=== PATIENT | male | born 1945 | race Caucasian/White ===

== ENCOUNTER → 2020-06-08 14:06 | Outpatient (BNVA) | payer MEDICARE, SELFPAY | PROVIDERS: PCP Internal Medicine Geriatric Medicine; Visit Provider Internal Medicine Cardiovascular Disease | DX: I49.1 Atrial premature depolarization (principal); I44.4 Left anterior fascicular block | CPT/HCPCS: 93005; 99212 ==

== ENCOUNTER → 2020-12-07 14:50 | Outpatient (BNVA) | payer OTHER, SELFPAY | PROVIDERS: PCP Internal Medicine Geriatric Medicine; Referring Provider Internal Medicine Geriatric Medicine; Visit Provider Internal Medicine Cardiovascular Disease | DX: I45.10 Unspecified right bundle-branch block (principal) | CPT/HCPCS: 93005 ==

== ENCOUNTER 2020-12-22 12:58 | Outpatient (REF) | payer MEDICARE, SELFPAY ==
--- NOTE | ~2020-12-22 | XR_ITS ---
EXAMINATION: XR KNEE, RIGHT CLINICAL INFORMATION: Pain COMPARISON: None TECHNIQUE: Four views of the right knee. FINDINGS: Bone alignment is normal. No fracture or dislocation is seen. The femoral tibial joints are normal. There are small osteophytes at the patellofemoral joint. There is a small osteophyte at the quadriceps tendon insertion to the patella. There is no joint effusion. XR/XR knee RT 4V IMPRESSION: Small patellar osteophyte otherwise unremarkable exam.
--- NOTE | ~2020-12-22 | XR_ITS ---
EXAMINATION: XR CHEST CLINICAL INFORMATION: Signs and symptoms involving the circulatory and respiratory system COMPARISON: Previous chest x-ray February [address] November 2019 TECHNIQUE: 2 views of the chest were obtained. FINDINGS: The cardiac and mediastinal contours are normal. There is a 5 mm nodule at the left lung base. This overlies the anterior sixth rib on the PA view. This is not seen on the lateral view. It is uncertain whether this represents a pulmonary nodule or could represent a nipple shadow. The lungs are otherwise clear. There is no pleural effusion or pneumothorax. There is curvature of the thoracic spine to the right and degenerative change. XR/XR chest 2V IMPRESSION: 5 mm left base pulmonary nodule. Follow-up chest x-ray with nipple markers recommended. Degenerative changes of the spine.
== END 2020-12-22 12:59 | disposition home or self-care (01) ==
LOC: HO.XRAY 12:58
PROVIDERS: Absent Provider Nurse Practitioner; PCP Nurse Practitioner; Visit Provider Family Medicine
DX: M25.561 Pain in right knee (principal); R09.89 Other specified symptoms and signs involving the circulatory and respiratory systems
CPT/HCPCS: 71046; 73564

== ENCOUNTER 2020-12-27 13:47 | Emergency (ER) | payer MEDICARE, SELFPAY ==
--- NOTE | 2020-12-27 | ECG_ITS ---
Test Reason : chest pain Blood Pressure : / mmHG Vent. Rate : 050 BPM Atrial Rate : 050 BPM P-R Int : 170 ms QRS Dur : 128 ms QT Int : 440 ms P-R-T Axes : 010 -54 008 degrees QTc Int : 401 ms Sinus bradycardia Left anterior fascicular block Non-specific intra-ventricular conduction block Minimal voltage criteria for LVH, may be normal variant ( [place] product ) Abnormal ECG No previous ECGs available Referred By: Generic ED Physician Electronically Signed By:JAXON VELÁSQUEZ MD
--- NOTE | ~2020-12-27 | CT_ITS ---
EXAMINATION: CT HEAD WITHOUT CONTRAST CLINICAL INFORMATION: Left arm paresthesia. COMPARISON: None TECHNIQUE: Contiguous axial imaging was performed from the skull base to vertex without intravenous administration of contrast. This CT examination was performed using dose optimization techniques as appropriate, variously including the following: *Automated exposure control *Adjustment of mA and/or kV according to patient size (this includes techniques or standardized protocols for targeted exams where dose is matched to indication/reason for exam; i.e. extremities or head) *Use of iterative reconstruction technique DLP: 702 mGy-cm FINDINGS: There is no evidence of acute intracranial hemorrhage or territorial infarction. No abnormal mass effect or midline shift is seen. Tap[place] to white matter differentiation is well preserved. No extra-axial fluid collections are identified. The ventricles are symmetrical in size but enlarged. There is diffuse periventricular hypodensity suggestive of chronic small vessel ischemic changes. Bone windows reveal no calvarial abnormality. There is no scalp abnormality either. Bilateral paranasal sinuses and mastoid air cells are well-aerated. CT/CT head/brain wo con IMPRESSION: No acute intracranial process seen. Age-related cerebral volume loss with chronic small vessel ischemic changes in both cerebral hemispheres.
[2020-12-27 13:50] VITALS: BP 138/54; PULSE 52; RESP 18; TEMP 36.6; O2SAT 97; BMI 25.7
--- NOTE | 2020-12-27 15:27 | ED_ITS ---
HPI - Chest Pain General Chief Complaint: Chest Pain Stated Complaint: chest pain/l arm pain Time Seen by Provider: 12/27/20 15:26 Source: patient Mode of arrival: ambulatory Limitations: no limitations History of Present Illness HPI narrative: 75 yo male pmhx significant for DM, left anterior fasicular block and HTN presents to the ED with complaints of left arm numbness and tingling since yesterday at approximately 10 am . He states that this sensation began yesterday, it has been intermittent in nature and it has been worsening over the past day. He states he also feels a little numbness to his left axilla and just inferior to it. He states this has never happened to him before. He has been eating and drinking well. Denies chest pain, shortness of breath, weakness, fevers, chills, nausea, vomiting, abdominal pain, no recent illness. Onset (ago): day(s) (2) Timing of current episode: episodic Prior episodes: No Relieving factors: nothing Exacerbating factors: nothing Related Data Home Medications Medication Instructions Recorded Confirmed bupropion HCl 150 mg 24 hr tablet, 150 mg PO QAM 06/08/20 06/08/20 extended release cholecalciferol (vitamin D3) 50 50 mcg PO DAILY 06/08/20 06/08/20 mcg (2,000 unit) capsule diltiazem HCl 120 mg 120 mg PO QAM 06/08/20 06/08/20 capsule,extended release 24 hr fluticasone propionate 50 spray INTRANASAL 06/08/20 06/08/20 mcg/actuation nasal spray,suspension lorazepam 0.5 mg tablet 0.5 mg PO BID 06/08/20 06/08/20 melatonin 5 mg tablet 5 mg PO BEDTIME 06/08/20 06/08/20 metformin 500 mg tablet 500 mg PO BID 06/08/20 06/08/20 omeprazole 20 mg capsule,delayed 20 mg PO BID 06/08/20 06/08/20 release umeclidinium 62.5 mcg/actuation 1 inh INHALATION DAILY 06/08/20 06/08/20 blister powder for inhalation Previous Rx's Medication Instructions Recorded flecainide 50 mg tablet 50 mg PO BID #60 tab 08/28/20 Allergies Allergy/AdvReac Type Severity Reaction Status Date / Time No Known Allergies Allergy Mild NONE Verified 12/27/20 13:49 Review of Systems Review of Systems: Constitutional : No Weight loss, No Fever, No Chills, No Night Sweats, No Fatigue, No Malaise ENT/Mouth : No Hearing loss, No Ear Pain, No Nasal Congestion, No sore throat, No Rhinorrhea Eyes: No Eye Pain, No Swelling, No Redness, No Foreign Body, No Discharge, No Vision Changes Cardiovascular : No Chest Pain, No SOB, No Dyspnea on Exertion, No Orthopnea, No Edema, No Palpitations Respiratory : No Cough, No Sputum, No Wheezing, No Smoke Exposure, No Dyspnea Gastrointestinal : No Nausea, No Vomiting, No Diarrhea, No Constipation, No abdominal Pain, No Hematochezia, No Melena Genitourinary : no irregular bleeding, No Dysuria, No Urinary Frequency, No Hematuria, No Urinary Incontinence, No Urgency, No Flank Pain, No Urinary Flow Changes, No Hesitancy Musculoskeletal : No joint pain, No Myalgias, No Joint Swelling Skin : No Skin Lesions, No rash Neuro : No Weakness, + Numbness, + Paresthesias, No Loss of Consciousness, No Dizziness, No Headache Neurologic: Reports Abnormal speech present and Reports Sensory deficit (Neuro) (decreased sensation on left hand ) [facility] Past Medical History Attestation statement: The following information was validated with the patient. Source: old records reviewed and nursing notes reviewed Medical History (Updated 12/27/20 @ 17:21 by Antonio Kim MD) Left anterior fascicular block Premature atrial contractions Surgical History Hx of colonoscopy Hx of laminectomy Family History Family History Father No problems noted. Mother Colon cancer Social History Social History Advance Directives: No Advance Directives Information Provided: Yes Physical Exam Vital Signs: Vital Signs: Last Vital Signs Temp 97.9 F 12/27/20 13:50 Pulse 53 12/27/20 17:31 Resp 16 12/27/20 17:31 BP 143/70 H 12/27/20 17:31 Pulse Ox 96 12/27/20 17:31 Body Mass Index 25.7 Const: General: cooperative Nutritional Appearance: average body habitus Orientation/consciousness: oriented to person, oriented to place and oriented to time Limitations: no limitations HENMT: Head: Yes normal to inspection Mouth: Normal oral and palatal mucosa present Eyes: General: appearance normal, both eyes and all related structures Pupils: Equal, round and reactive pupils present EOM: EOMs intact bilaterally Neck: Neck: Yes normal visual inspection and Yes full ROM Thyroid: Thyroid normal Lymphatic: no lymphadenopathy noted Resp: Effort & Inspection: normal respiratory effort and able to speak in complete sentences Auscultation: clear to auscultation bilaterally Cardio: Palpation: normal PMI Rate: regular rate Rhythm: regular rhythm and abnormal rhythm Heart sounds: S1 normal heart sound present and S2 normal heart sound present GI: Inspection: Yes normal to inspection Palpation (GI): Soft to palpation and nontender : General: Yes no CVA tenderness Back/Spine/Pelvis: Back: no CVA tenderness Neuro: General: oriented to person, oriented to place and oriented to time Cranial nerves: Yes CN's II-XII intact bilaterally and Yes Equal, round and narciso ctive pupils present Cognition (Neuro): normal cognition Speech: Abnormal speech present Gait exam (Neuro): Normal gait present Motor exam (neuro): 5/5 motor strength present throughout and Pronator motor function not present Sensory Exam: Sensory deficit (Neuro) (decreased sensation on left hand ); No Normal double simultaneous stimulation for sensation (decreased sensation to left arm when compared to right ) Extrem: General: Yes normal to inspection, Yes full ROM and Yes no pedal edema Psych: Mental Status: mental status grossly normal Course Course Course Narrative: Reevaluation(s) Reevaluation #1: CT of head and brain shows no acute findings no ICH. No ACS trop 6.4, patient does not have chest pain. He will be given ASA 81 mg. Labs show no collection abnormalities. Upon re-evaluation of the patient, he states that sensation to his left arm, and axilla has resolved. MDM - Chest Pain MDM Narrative Medical decision making narrative: 75-year-old male past medical history signi ficant for hypertension, diabetes and left anterior fascicular block presents to the emergency department with numbness and tingling to his left arm, left arm pain in inferior arch with left arm pain x2 days progressively worsening. He states that the paresthesias are intermittent in nature, but they have been occurring more frequently today when compared to yesterday. This has never happened to him before Patient denies chest pain, however due to the numbness to his left arm an EKG has been ordered, and troponin to rule out ACS. Electrolytes will be ordered, to rule out electrolyte abnormalities. Upon physical examination motor is intact to upper and lower extremities, decreased sensation to left upper extremity. He has normal strength to bilateral upper and lower extremities, there is no wrist drop. Normal finger to nose, heel to patel unlikley a cerebellar infarct. Due to patient history and physical examination a CT of the head and brain has been ordered at this time. Lab Data Attestation: I reviewed the patient's lab results. Result diagrams: 12/27/20 15:54 12/27/20 15:54 Labs: Lab Results 12/27/20 12/27/20 12/27/20 Range/Units 15:54 15:54 15:54 WBC 5.5 (4.8-10.8) X10*3/uL RBC 4.40 L (4.60-5.80) X10*6/uL Hgb 13.0 L (14.0-18.0) g/dl Hct 39.2 L (42-52) % MCV 89.1 (80-98) fL MCH 29.5 (27.0-33.0) pg MCHC 33.2 (31.0-36.0) g/dl RDW 12.1 (11.0-16.0) % Plt Count 201 (160-400) X10*3/uL MPV 9.0 L (9.4-12.4) fL Immature Gran % (Auto) 0.4 (0.0-0.4) % Neut % (Auto) 65.1 (45-73) % Lymph % (Auto) 23.1 (20-40) % [place] % (Auto) 8.7 (2-11) % Eos % (Auto) 2.2 (0-4) % Baso % (Auto) 0.5 (0-2) % Lymph # (Auto) 1.3 (1.2-4.9) X10*3/uL [place] # (Auto) 0.5 (0.1-1.2) X10*3/uL Eos # (Auto) 0.1 (0.0-0.4) X10*3/uL Baso # (Auto) 0.0 (0.0-0.2) X10*3/uL Abs Immat Gran (auto) 0.02 (0.00-0.03) X10*3/uL Absolute Neuts (auto) 3.6 (2.0-8.3) X10*3/uL Absolute Nucleated RBC 0.000 (0.0-0.012) X10*3/uL Nucleated RBC % (auto) 0.0 (0.0-0.2) /100WBC Sodium 141 (135-145) mmol/L Potassium 3.9 (3.3-5.1) mmol/L Chloride 105 (96-108) mmol/L Carbon Dioxide 27 (22-29) mmol/L Anion Gap 13 (12-20) BUN 9 (9-16) mg/dL Creatinine 0.91 (0.5-1.4) mg/dL Estim Creat Clear Calc 71.2 Estimated GFR > 60 Random Glucose 89 (60-115) mg/dL Calcium 9.6 (8.4-10.2) mg/dL Troponin I High Sens 6.4 (<3.5-35.0) ng/L Imaging Data CT scan - head: Attestation: I personally reviewed and interpreted this imaging study as follows: Radiologist's impression: FINDINGS: There is no evidence of acute intracranial hemorrhage or territorial infarction. No abnormal mass effect or midline shift is seen. [place] to white matter differentiation is well preserved. No extra-axial fluid collections are identified. The ventricles are symmetrical in size but enlarged. There is diffuse periventricular hypodensity suggestive of chronic small vessel ischemic changes. Bone windows reveal no calvarial abnormality. There is no scalp abnormality either. Bilateral paranasal sinuses and mastoid air cells are well-aerated. ? CT/CT head/brain wo con IMPRESSION: No acute intracranial process seen. ? Age-related cerebral volume loss with chronic small vessel ischemic changes in both cerebral hemispheres. ECG Data ECG #1: Attestation: I personally reviewed and interpreted this ECG as follows: ECG interpretation date: 12/27/20 ECG interpretation time: 14:29 Prior ECG tracings: available for review Interpretation: Intra-ocular rate of 50, normal VT interval, normal QRS, normal QT/QTC. Sinus bradycardia with left axis deviation. No ST elevation, T- wave inversions. No acute ischemia, and now acute changes when compared to EKG from November 2019. Discharge Plan Discharge Clinical Impression: Arm paresthesia, left Patient Disposition: Home, Self-Care Instructions: Paresthesia (ED) Additional Instructions: Follow-up with your primary care provider Return to the emergency department with new or worsening symptoms Prescriptions: No Action flecainide 50 mg tablet 50 mg PO BID Qty: 60 RF: 5 Incruse Ellipta 62.5 mcg/actuation blister with device 1 inh inhalation DAILY RF: 0 fluticasone propionate 50 mcg/actuation spray,suspension intranasal RF: 0 omeprazole 20 mg capsule,delayed release(DR/EC) 20 mg PO BID RF: 0 diltiazem HCl 120 mg capsule,extended release 24hr 120 mg PO QAM RF: 0 lorazepam 0.5 mg tablet 0.5 mg PO BID RF: 0 bupropion HCl 150 mg tablet extended release 24 hr 150 mg PO QAM RF: 0 melatonin 5 mg tablet 5 mg PO BEDTIME RF: 0 metformin 500 mg tablet 500 mg PO BID RF: 0 cholecalciferol (vitamin D3) 50 mcg (2,000 unit) capsule 50 mcg PO DAILY RF: 0 Interventions: ED Discharge Assessment Last Done: 12/27/20 18:09 Discharge Date/Time: 12/27/20 18:09
[2020-12-27 15:32] VITALS: BP 144/54; PULSE 53; RESP 16; O2SAT 98
[2020-12-27 16:07] LABS: MANUAL DIFF FLAG NO
[2020-12-27 16:08] LABS: Basophils Percent Auto 0.5 % (0-2); Eosinophils Absolute Auto 0.1 X10*3/uL (0.0-0.4); Eosinophils Percent Auto 2.2 % (0-4); Hematocrit 39.2 % (42-52); Imm Gran Abs Auto 0.02 X10*3/uL (0.00-0.03); Imm Gran Pct Auto 0.4 % (0.0-0.4); Lymphocytes Absolute Auto 1.3 X10*3/uL (1.2-4.9); Lymphocytes Percent Auto 23.1 % (20-40); Mean Corpuscular HGB Conc 33.2 g/dl (31.0-36.0); Mean Corpuscular Hemoglobin 29.5 pg (27.0-33.0); Mean Corpuscular Volume 89.1 fL (80-98); Monocytes Absolute Auto 0.5 X10*3/uL (0.1-1.2); Monocytes Percent Auto 8.7 % (2-11); Neutrophils Absolute Auto 3.6 X10*3/uL (2.0-8.3); Neutrophils Percent Auto 65.1 % (45-73); Platelet Count 201 X10*3/uL (160-400); Red Cell Distribution Width 12.1 % (11.0-16.0); White Blood Count 5.5 X10*3/uL (4.8-10.8)
[2020-12-27 16:22] LABS: Anion Gap 13 (12-20); Blood Urea Nitrogen 9 mg/dL (9-16); Calcium 9.6 mg/dL (8.4-10.2); Carbon Dioxide 27 mmol/L (22-29); Chloride 105 mmol/L (96-108); Creatinine Clr Calc Pharmacy 71.2; Estimated Glomerular Filt Rate > 60; Glucose Random 89 mg/dL (60-115); Potassium 3.9 mmol/L (3.3-5.1); Sodium 141 mmol/L (135-145)
[2020-12-27 16:30] LABS: Troponin-I High Sensitivity 6.4 ng/L (<3.5-35.0)
[2020-12-27 17:31] VITALS: BP 143/70; PULSE 53; RESP 16; O2SAT 96
[2020-12-27] MEDS: Aspirin 81 MG TAB.CHEW PO (18:02)
== END 2020-12-27 18:09 | disposition home or self-care (01) ==
PROVIDERS: Emergency Provider Internal Medicine; PCP Family Medicine
DX: R20.2 Paresthesia of skin (principal); E11.9 Type 2 diabetes mellitus without complications; I10 Essential (primary) hypertension; I44.4 Left anterior fascicular block; Z79.84 Long term (current) use of oral hypoglycemic drugs; Z79.899 Other long term (current) drug therapy
CPT/HCPCS: 36415; 70450; 80048; 84484; 85025; 93005; 99283; 99284

== ENCOUNTER 2021-01-01 11:47 | Outpatient (REF) | payer MEDICARE, SELFPAY ==
--- NOTE | ~2021-01-01 | XR_ITS ---
EXAMINATION: XR CHEST CLINICAL INFORMATION: Left lung base nodule, follow-up. COMPARISON: 12/22/2020 chest radiograph, chest CT dated 12/03/2019. TECHNIQUE: 2 views of the chest were obtained. Bilateral nipple markers were placed. FINDINGS: The left lower lung nodular density correlates with the patient's nipple with markers in place. The lungs are clear. The heart and mediastinal structures are unremarkable. XR/XR chest 2V IMPRESSION: No acute cardiopulmonary process.
== END 2021-01-01 11:48 | disposition home or self-care (01) ==
LOC: HO.XRAY 11:47
PROVIDERS: PCP Family Medicine; Visit Provider Family Medicine
DX: R91.1 Solitary pulmonary nodule (principal)
CPT/HCPCS: 71046

== ENCOUNTER 2021-03-27 14:15 | Outpatient (REF) | payer MEDICARE, SELFPAY ==
--- NOTE | ~2021-03-27 | MR_ITS ---
EXAMINATION: MR BRAIN WITHOUT CONTRAST CLINICAL INFORMATION: Stroke. COMPARISON: CT head from 12/27/2020. TECHNIQUE: MRI of the brain was obtained using routine sequences without contrast. FINDINGS: No focal restricted diffusion is demonstrated to suggest acute or subacute cerebral ischemia. No evidence of acute or chronic hemorrhagic products on heme-sensitive imaging. Scattered periventricular, deep white matter, and brainstem T2 FLAIR hyperintensities consistent with moderate underlying microangiopathy. Proportional prominence of the ventricles and sulcal spaces without evidence of obstructive hydrocephalus. Persistent cavum septum pellucidum. No abnormal mass effect. No midline shift. Normal appearance of the pituitary gland. Normal positioning of the cerebellar tonsils. Normal arterial and venous vascular flow voids are present. Normal, homogeneous marrow signal. Advanced degenerative spondyloarthropathy of the visualized upper cervical spine. Mild mucosal thickening of the paranasal sinuses. No signal abnormalities within the mastoids. Bilateral lens extractions. MR/MR head/brain wo con IMPRESSION: 1. No acute intracranial abnormalities. 2. Moderate underlying microangiopathy and generalized cerebral volume loss.
== END 2021-03-27 14:16 | disposition home or self-care (01) ==
LOC: HO.MRI 14:15
PROVIDERS: PCP Family Medicine; Visit Provider Psychiatry & Neurology Neurology
DX: I63.9 Cerebral infarction, unspecified (principal)
CPT/HCPCS: 70551

== ENCOUNTER 2021-04-05 09:58 | Outpatient (REF) | payer MEDICARE, SELFPAY ==
--- NOTE | 2021-04-05 10:04 | EMG_ITS ---
Left median and ulnar motor and sensory studies were performed. Left radial sensory study was performed and paraspinal muscles were tested. IMPRESSION: 1. Mild left median neuropathy across carpal tunnel. 2. Mild left ulnar neuropathy across cubital tunnel. MD BREANNA Charles/LAMONT / [id number]
== END 2021-04-05 09:59 | disposition home or self-care (01) ==
LOC: HO.NEURO 09:58
PROVIDERS: PCP Family Medicine; Visit Provider Family Medicine
DX: R20.0 Anesthesia of skin (principal)
CPT/HCPCS: 95886; 95909

== ENCOUNTER → 2021-05-21 13:02 | Outpatient (REF) | payer MEDICARE, SELFPAY ==
--- NOTE | 2021-05-21 13:00 | CA_ITS ---
Transthoracic Echocardiogram Patient (Last, First, Middle): [place] A Gender: Male Date of : 1945 Age: 76 Procedure Date: 05/21/2021 Procedure Type: Transthoracic Echocardiogram Location: OP Height: 175.26 cm Weight: 78.47 kg BSA: 1.94 m2 Heart Rate: bpm BP: 115 / 70 mmHg Contract Assistant: VH/OT Referring MD: Glo Delgadillo MD [employer] Maker [employer] M[employer]: Mathew Soriano MD Symptoms: LOCALIZED ECZEMA Study Quality: Fair ECG Rhythm: Sinus Conclusions: - 1. Low normal LV systolci function with grade I diastolic dysfunction. 2. Trivial aortic regurgitation 3. Mildly dilated ascending aorta at 4.2 cm 4. Normal RVSP 5. No gross pericardial effusion Findings Left Ventricle Normal left ventricular cavity size. There is normal left ventricular wall thickness. The left ventricular systolic function is low normal. The visually estimated ejection fraction is between 50-55%. Spectral Doppler is indicative of an impaired relaxation filling pattern. E/E prime ratio is <8, consistent with normal filling pressures. Evidence suggests grade I (mild) diastolic dysfunction. Right Ventricle Normal right ventricular cavity size and systolic function. Atria The left atrium is mildly dilated. There is no evidence of interatrial shunt. The right atrium is normal in size. Aortic Valve There is mild thickening of the aortic valve. There is no aortic valve stenosis. There is trace (trivial) aortic valve regurgitation. Mitral Valve Normal mitral valve structure and function. There is trace mitral valve regurgitation. There is no mitral valve stenosis. Pulmonic Valve The pulmonic valve is likely normal. There is trace to mild pulmonic valve regurgitation. Tricuspid Valve Normal tricuspid valve structure. There is mild tricuspid valve regurgitation. The right ventricular systolic pressure is normal. The right ventricular systolic pressure is 28 mmHg. Normal right atrial pressure. There is no evidence of pulmonary hypertension. Great Vessels The pulmonary artery was not well visualized. There is mild dilatation of the ascending aorta measuring 4.20 cm. Venous The inferior vena cava is normal in size and collapses greater than 50% with inspiration. Pericardium/Pleural There is no evidence of pericardial effusion. Prior Study Comparison Changes noted compared to prior study. Ascending aorta is mildly dilated Measurements 2D Linear Measurements IVSd: 1.05 0.6-0.9/0.6-1.0 cm LVIDd: 4.98 3.9-5.3/4.2-5.9 cm LVIDd Index: 2.57 2.4-3.2/2.2-3.1 cm/m2 LVIDs: 3.28 2.0-3.6 cm LVPWd: 1.12 0.7-1.1 cm LA Diam: 4.20 2.7-3.8/3.0-4.0 cm LAIDs Index: 2.16 1.5-2.3 cm/m2 LV Mass: 251.70 67-162/88-224 g LV Mass Index: 129.74 43-95/49-115 g/m2 LVOT Diam: 2.30 3.0+(-)1.3 cm 2D Systolic Function EF 4C: 50.20 >55% EF 2C: 51.50 >55% EF BiP: 49.70 >55% Mitral Valve MV Pk E: 0.61 MV PK A: 0.85 MV Decel Time: 349.00 E/A: 0.70 E'Lateral: 10.30 E'Medial: 5.33 E/E' Med: 11.40 E/E' Lat: 5.90 PHT: 102.00 MVA PHT: 2.16 Decel [place]: 1.74 Aortic Valve AoV Pk Magan: 1.74 AoV Mn Magan: 1.16 AoV VTI: 0.38 AoV Pk Grad: 12.00 Aov Mn Grad: 6.00 RAJAN Cont.VTI: 3.10 LVOT LVOT Pk Magan: 1.15 LVOT Mn Magan: 0.77 LVOT VTI: 0.28 LVOT Pk Grad: 5.00 LVOT Mn Grad: 3.00 LVOT Diam: 2.30 LVOT Area: 4.15 Diastolic Function MV Pk E: 0.61 MV Pk A: 0.85 E/A: 0.70 E'Medial: 5.33 E/E' Med: 11.40 E' Laterial: 10.30 E/E' Lat: 5.90 Tricuspid Valve TR Pk Magan: 2.51 TR Pk Grad: 25.00 RA Press: 3.00 RVSP: 28.00 Great Vessels Aorta Ao Asc: 4.20 2.1-3.4 cm Pulmonary Valve PV Pk Magan: 1.04 Peak PV Grad: 4.00 Updated in Other Vendor System with Status of Final Mathew Soriano MD electronically signed on 05/21/2021 8:42:31 PM with status of Final
== END ==
LOC: HO.CARD 13:02
PROVIDERS: PCP Family Medicine; Visit Provider Family Medicine
DX: R60.0 Localized edema (principal)
CPT/HCPCS: 93306

== ENCOUNTER 2021-07-24 11:00 | Outpatient (REF) | payer OTHER, SELFPAY ==
[2021-07-24 12:45] LABS: MANUAL DIFF FLAG NO
[2021-07-24 12:58] LABS: Basophils Percent Auto 0.5 % (0-2); Eosinophils Absolute Auto 0.1 X10*3/uL (0.0-0.4); Eosinophils Percent Auto 2.1 % (0-4); Hematocrit 36.7 % (42.0-52.0); Hemoglobin 12.2 g/dl (14.0-18.0); Imm Gran Abs Auto 0.02 X10*3/uL (0.00-0.03); Imm Gran Pct Auto 0.5 % (0.0-0.4); Lymphocytes Absolute Auto 1.1 X10*3/uL (1.2-4.9); Lymphocytes Percent Auto 26.5 % (20-40); Mean Corpuscular HGB Conc 33.2 g/dl (31.0-36.0); Mean Corpuscular Hemoglobin 29.9 pg (27.0-33.0); Mean Platelet Volume 9.1 fL (9.4-12.4); Monocytes Absolute Auto 0.4 X10*3/uL (0.1-1.2); Monocytes Percent Auto 9.7 % (2-11); Neutrophils Absolute Auto 2.6 x10*3/uL (2.0-8.3); Neutrophils Percent Auto 60.7 % (45-73); Platelet Count 209 X10*3/uL (160-400); Red Blood Count 4.08 X10*6/uL (4.60-5.80); Red Cell Distribution Width 11.9 % (11.0-16.0); White Blood Count 4.3 X10*3/uL (4.8-10.8)
[2021-07-24 13:42] LABS: Alanine Aminotransferase 14 U/L (0-40); Albumin Level 4.4 g/dL (3.5-5.0); Alkaline Phosphatase 83 U/L (39-117); Anion Gap 15 (12-20); Aspartate Amino Transferase 13 U/L (5-37); Bilirubin Total 0.5 mg/dL (0.0-1.0); Blood Urea Nitrogen 17 mg/dL (9-16); Calcium 9.9 mg/dL (8.4-10.2); Carbon Dioxide 25 mmol/L (22-29); Chloride 102 mmol/L (96-108); Estimated Glomerular Filt Rate 54; Glucose Random 193 mg/dL (60-115); Potassium 4.6 mmol/L (3.3-5.1); Sodium 137 mmol/L (135-145); Total Protein 6.9 g/dL (6.5-8.0)
== END 2021-07-24 11:01 | disposition home or self-care (01) ==
LOC: HO.LAB 11:00
PROVIDERS: PCP Family Medicine; Referring Provider Family Medicine; Visit Provider Nurse Practitioner
DX: Z01.818 Encounter for other preprocedural examination (principal); D12.6 Benign neoplasm of colon, unspecified
CPT/HCPCS: 36415; 80053; 85025; 99212

== ENCOUNTER → 2021-08-07 08:45 | Outpatient (BNVA) | payer MEDICARE, SELFPAY | PROVIDERS: PCP Family Medicine; Referring Provider Family Medicine; Visit Provider Internal Medicine Cardiovascular Disease | DX: I49.1 Atrial premature depolarization (principal) | CPT/HCPCS: 93005; 99212 ==

== ENCOUNTER → 2022-02-05 09:45 | Outpatient (BNVA) | payer MEDICARE, SELFPAY | PROVIDERS: PCP Family Medicine; Referring Provider Family Medicine; Visit Provider Internal Medicine Cardiovascular Disease | DX: R94.31 Abnormal electrocardiogram [ECG] [EKG] (principal); I44.60 Unspecified fascicular block; R00.1 Bradycardia, unspecified | CPT/HCPCS: 93005 ==

== ENCOUNTER 2022-03-08 13:17 | Outpatient (REF) | payer MEDICARE, SELFPAY ==
--- NOTE | ~2022-03-08 | XR_ITS ---
EXAMINATION: XR KNEE, LEFT CLINICAL INFORMATION: Left knee pain COMPARISON: None TECHNIQUE: Four views of the left knee. FINDINGS: The tricompartment joint space is maintained normal. No bony erosive changes seen. There is anterior superior patellar, lateral patellar compartment enthesophytes. No loose body seen. No visible acute fracture or dislocation. No abnormal joint effusion seen XR/XR knee LT 4V IMPRESSION: Degenerative arthritic changes. No visible acute fracture or dislocation.
== END 2022-03-08 13:18 | disposition home or self-care (01) ==
LOC: HO.XRAY 13:17
PROVIDERS: PCP Family Medicine; Visit Provider Internal Medicine
DX: M25.562 Pain in left knee (principal)
CPT/HCPCS: 73564

== ENCOUNTER 2022-05-01 06:38 | Day surgery (SDC) | payer MEDICARE, SELFPAY ==
--- NOTE | 2022-05-01 07:01 | P.HPSUR_ITS ---
Pre-Procedural Eval Section A Date of Service: 05/01/22 Section B Chief Complaint: Benign neoplasm of colon, unspecified Relevant Family History (Specify if Yes): No Relevant Social History: None Present Medications: see Short Stay Collaborative assessment Medical History: Significant History (COPD Diabetes Hypertension Memory impairment Seborrheic dermatitis Depression BPH Tremor GERD History of basal cell carcinoma Constipation Tubular adenoma) History of Previous Operations: Relevant previous surgery/procedure and date(s) (TURP Lumbar laminectomy Excision of basal cell carcinoma nose Colonoscopy 2012=TA, 2017=TA) Allergies: Allergies Allergy/AdvReac Type Severity Reaction Status Date / Time No Known Allergies Allergy Mild NONE Verified 04/16/22 15:08 Review of Systems Sugical H&P ROS: Negative: Constitution, Cardiovascular, Respiratory, Neurologi austyn, Psychiatric, Hem-Onc, Allergic/Immunologic, Gastrointestinal, Genitourinary, Musculoskeletal, Integumentary, Endocrine and Eyes/Ears/Nose/Throat Exam Surgical H&P Exam: Normal: HEENT, Normal: Heart, Normal: Lungs, Normal: Extremities, Normal: Abdomen, Normal: Skin and Normal: Neurological Plan Diagnosis/Plan: Unchanged I have reviewed the history and physical and performed a pertinent physical examination on my patient. No changes have occurred unless specified. Time Spent With Patient Time: Total time managing care of this patient today ____ minutes.
[2022-05-01 07:19] VITALS: BP 130/56; PULSE 50; RESP 16; TEMP 36.3; O2SAT 97
[2022-05-01 07:25] LABS: Glucose, Whole Blood 98 mg/dL (60-115)
[2022-05-01 07:28] VITALS: BMI 25.1
--- NOTE | 2022-05-01 07:45 | P.CONAN_ITS ---
[facility] Active Problems Active Problems: All Active Problems (Updated 04/16/22 @ 15:09 by Jessica Landrum RN) COPD (chronic obstructive pulmonary disease) (Acute) Diabetes (Acute) Hypertension (Acute) Memory impairment (Acute) Seborrheic dermatitis (Acute) BPH (benign prostatic hyperplasia) (Acute) Tremor (Acute) GERD (gastroesophageal reflux disease) (Acute) Constipation (Acute) Tubular adenoma of colon (Acute) Left anterior fascicular block (Acute) Premature atrial contractions (Acute) Past Medical History Medical History (Updated 04/16/22 @ 15:09 by Jessica Landrum RN) Anxiety and depression Arthritis Asthma COPD (chronic obstructive pulmonary disease) Depression DM (diabetes mellitus) GERD (gastroesophageal reflux disease) History of basal cell carcinoma Left anterior fascicular block Premature atrial contractions PUD (peptic ulcer disease) Family History Family History Father No problems noted. Mother Colon cancer Family history of problems with anesthesia: No Surgical History Surgical History (Updated 04/16/22 @ 15:07 by Jessica Landrum RN) History of bilateral cataract extraction Hx of colonoscopy Hx of hemorrhoidectomy Hx of laminectomy S/P TURP History of Problems with Anesthesia: No Social History Social History Patient Tobacco Use Status: Former Tobacco user Tobacco use type: Cigarette Use of substances other than those prescribed or required for medical reasons: No Are you DNR?: No Advance Directives: No Advance Directives Information Provided: Yes Meds Allergies Allergy/AdvReac Type Severity Reaction Status Date / Time No Known Allergies Allergy Mild NONE Verified 04/16/22 15:08 Active Medications: Current Medications Lactated Ringer's (Lr) 1,000 mls @ 50 mls/hr IVCONT .Q20H [facility] Home Medications Medication Instructions Recorded Confirmed Last Taken Type bupropion HCl 150 mg 24 hr tablet, 150 mg PO QAM 06/08/20 04/16/22 Unknown History extended release cholecalciferol (vitamin D3) 50 50 mcg PO DAILY 06/08/20 04/16/22 Unknown History mcg (2,000 unit) capsule fluticasone propionate 50 spray intranasal 06/08/20 08/07/21 Unknown History mcg/actuation nasal spray,suspension lorazepam 0.5 mg tablet 0.5 mg PO BID 06/08/20 04/16/22 Unknown History melatonin 5 mg tablet 5 mg PO BEDTIME 06/08/20 04/16/22 Unknown History metformin 500 mg tablet 500 mg PO BID 06/08/20 04/16/22 Unknown History omeprazole 20 mg capsule,delayed 20 mg PO BID 06/08/20 04/16/22 Unknown History release umeclidinium 62.5 mcg/actuation 1 inh inhalation DAILY 06/08/20 04/16/22 Unknown History blister powder for inhalation albuterol sulfate 90 mcg/actuation 0 mcg inhalation 07/24/21 08/07/21 Unknown History aerosol inhaler (Ventolin HFA) blood sugar diagnostic (FreeStyle #10 ea 07/24/21 08/07/21 Unknown History Lite Strips) docusate sodium 100 mg capsule 100 mg PO 07/24/21 08/07/21 Unknown History hydrochlorothiazide 25 mg tablet 25 mg PO QAM 07/24/21 04/16/22 Unknown History lisinopril 20 mg tablet 20 mg PO QAM 07/24/21 04/16/22 Unknown History loratadine 10 mg tablet 10 mg PO DAILY PRN allergies 07/24/21 04/16/22 Unknown History Exam Exam Date and Time: May 01, 2022 0745 Height,Weight and Vital Signs: Height 5 ft 9 in Weight 77.111 kg Last Vital Signs Temp 97.3 F 05/01/22 07:19 Pulse 50 05/01/22 07:19 Resp 16 05/01/22 07:19 BP 130/56 L 05/01/22 07:19 Pulse Ox 97 05/01/22 07:19 O2 Del Method 05/01/22 07:19 Pertinent Lab Results Pertinent Lab Results: Laboratory Tests 05/01/22 07:22 POC Glucose 98 Airway Mallampati Class: II TM Dist: >3cm Neck ROM: Full Denture: Lower Partial: Upper Heart: gurdeep Lungs: cta bl Assessment and Plan Assessment Anesthesia Assessment: Anesthesia Plan Discussed and Chart Reviewed Final Anesthetic Review Family History of Problems with Anesthesia: No History of Problems with Anesthesia: No NPO: No ASA Class: II Final Preanesthetic Review: No Changes in Pt Med Stat, Meds/Allgs Chart Reviewed and Consent Obtained/Reviewed Patient Risk: Intermediate Procedure Risk: Intermediate Anesthetic Plan Anesthetic Plan: MAC: Disposition: Standard PACU
[2022-05-01] MEDS: Lactated Ringers 1,000 ML 50 ML IVCONT (07:59)
--- NOTE | 2022-05-01 08:48 | P.OP_ITS ---
Operative Note Operative Note Date of Service: 05/01/22 Narrative: Operative Information Procedure Description: Colonoscopy Indication: hx of polyps Anesthesia: MAC COLONOSCOPY Instrument: Olympus variable stiffness pediatric scope 190L Colonoscopy Monitoring: Vital signs and clinical assessment, continuous EKG monitoring, Pulse oximetry, Carbon Dioxide monitoring and blood pressure monitoring were done throughout the procedure. Colon withdrawal time was 21 minutes. Procedure: The patient was placed in the left lateral decubitis position and pre-procedure medications were administered. After a digital rectal examination of the ano-rectum, the video colonoscope was inserted into the rectum and advanced through the colon to the cecum/TI. The colonoscope was slowly withdrawn in a retrograde panoramic fashion and the colon mucosa was carefully examined including a retroflexed view of the rectum. Findings and interventions are described below. Procedure Difficulty: moderate Findings: Terminal Ileum-not intubated due to looping melanosis coli noted Cecum:normal Ascending Colon: 6-8 mm sessile polyp removed with cold snare Transverse Colon - proximal area laterally spreading granular lesion 15 mm in diameter, injected with saline then removed piece meal with cold snare with APC applied to base and edges of the lesion Descending Colon:normal Sigmoid Colon: moderate diverticulosis noted Rectum: Retroflexion with small internal hemorrhoids, grade I Anorectum - normal Colon preparation: [place] Bowel Preparation Scale Right colon; 3 Transverse colon: 3 Left colon; 3 (0 = Unprepared colon segment with mucosa not seen due to solid stool that cannot be cleared. 1 = Portion of mucosa of the colon segment seen, but other areas of the colon segment not well seen due to staining, residual stool and/or opaque liquid. 2 = Minor amount of residual staining, small fragments of stool and/or opaque liquid, but mucosa of colon segment seen well. 3 = Entire mucosa of colon segment seen well with no residual staining, small fragments of stool or opaque liquid) Impression and Post Procedure Diagnosis: polyps internal hemorrhoids diverticular disease melanosis coli Plan: High fiber diet leaflet Avoid straining at stool, epsom salts and sitz bath, anusol supps or cream Repeat Colonoscopy in 1-2 years or earlier if clinically indicated avoid nsaids for 5 days e.g ibuprofen, advil etc can use tylenol Above findings were reviewed with the patient and relevant handouts were provided if indicated.
[2022-05-01 09:28] VITALS: BP 89/55; PULSE 59; RESP 16; TEMP 36.7; O2SAT 97
[2022-05-01 09:43] VITALS: BP 106/64; PULSE 61; RESP 18; TEMP 36.7; O2SAT 99
== END 2022-05-01 10:34 | disposition home or self-care (01) ==
PROVIDERS: PCP Family Medicine; Visit Provider Internal Medicine Gastroenterology
PROC: 0DJD8ZZ Inspection of Lower Intestinal Tract, Via Natural or Artificial Opening Endoscopic (ICD-10-PCS; CPT 45378; principal; 2022-05-01 08:30)
DX: Z12.11 Encounter for screening for malignant neoplasm of colon (principal); Z86.010 Personal history of colon polyps; D12.2 Benign neoplasm of ascending colon; D12.3 Benign neoplasm of transverse colon; K63.89 Other specified diseases of intestine; K57.30 Diverticulosis of large intestine without perforation or abscess without bleeding; K64.0 First degree hemorrhoids; K59.00 Constipation, unspecified; J44.9 Chronic obstructive pulmonary disease, unspecified; I10 Essential (primary) hypertension; R25.1 Tremor, unspecified; E11.9 Type 2 diabetes mellitus without complications; Z79.84 Long term (current) use of oral hypoglycemic drugs; Z79.899 Other long term (current) drug therapy; Z85.828 Personal history of other malignant neoplasm of skin; Z87.891 Personal history of nicotine dependence
CPT/HCPCS: 45385; 45380; 45381; 82947; 88305

== ENCOUNTER → 2022-06-11 12:04 | Outpatient (BNVA) | payer OTHER, SELFPAY | PROVIDERS: PCP Family Medicine; Visit Provider Nurse Practitioner | DX: D12.6 Benign neoplasm of colon, unspecified (principal); R42 Dizziness and giddiness | CPT/HCPCS: 99212 ==

== ENCOUNTER → 2022-08-08 12:47 | Outpatient (BNVA) | payer OTHER, SELFPAY | PROVIDERS: PCP Family Medicine; Referring Provider Family Medicine; Visit Provider Internal Medicine Cardiovascular Disease | DX: I49.1 Atrial premature depolarization (principal); I71.20 Thoracic aortic aneurysm, without rupture, unspecified | CPT/HCPCS: 93005; 99212 ==

== ENCOUNTER → 2022-09-20 13:38 | Outpatient (REF) | payer OTHER, SELFPAY | LOC: HO.CARD 13:38 | PROVIDERS: PCP Family Medicine; Visit Provider Internal Medicine Cardiovascular Disease | DX: I71.20 Thoracic aortic aneurysm, without rupture, unspecified (principal) | CPT/HCPCS: 93306; 93356 ==

== ENCOUNTER 2022-10-30 11:58 | Outpatient (REF) | payer OTHER, SELFPAY ==
[2022-10-30 14:18] LABS: MANUAL DIFF FLAG NO
[2022-10-30 14:36] LABS: Basophils Percent Auto 0.5 % (0-2); Eosinophils Absolute Auto 0.1 X10*3/uL (0.0-0.4); Eosinophils Percent Auto 2.3 % (0-4); Hematocrit 37.9 % (42.0-52.0); Hemoglobin 12.5 g/dl (14.0-18.0); Imm Gran Abs Auto 0.01 X10*3/uL (0.00-0.03); Imm Gran Pct Auto 0.2 % (0.0-0.4); Lymphocytes Absolute Auto 1.1 X10*3/uL (1.2-4.9); Lymphocytes Percent Auto 26.2 % (20-40); Mean Corpuscular Hemoglobin 29.8 pg (27.0-33.0); Mean Corpuscular Volume 90.2 fL (80.0-98.0); Mean Platelet Volume 9.5 fL (9.4-12.4); Monocytes Absolute Auto 0.4 X10*3/uL (0.1-1.2); Monocytes Percent Auto 8.9 % (2-11); Neutrophils Absolute Auto 2.6 x10*3/uL (2.0-8.3); Neutrophils Percent Auto 61.9 % (45-73); Platelet Count 232 X10*3/uL (160-400); Red Cell Distribution Width 12.1 % (11.0-16.0); White Blood Count 4.3 X10*3/uL (4.8-10.8)
[2022-10-30 15:27] LABS: Alanine Aminotransferase 11 U/L (0-40); Albumin Level 4.5 g/dL (3.5-5.0); Alkaline Phosphatase 103 U/L (39-117); Anion Gap 15 (12-20); Aspartate Amino Transferase 14 U/L (5-37); Bilirubin Total 0.5 mg/dL (0.0-1.0); Blood Urea Nitrogen 20 mg/dL (9-16); Calcium 9.7 mg/dL (8.4-10.2); Carbon Dioxide 25 mmol/L (22-29); Chloride 103 mmol/L (96-108); Cholesterol 162 mg/dL; Estimated Glomerular Filt Rate 55; Glucose Random 198 mg/dL (60-115); HDL Cholesterol 30 mg/dL; LDL Cholesterol Calculated 112 mg/dl; Potassium 3.8 mmol/L (3.3-5.1); Sodium 139 mmol/L (135-145); Total Protein 7.5 g/dL (6.5-8.0); Triglycerides 103 mg/dL
[2022-10-30 15:57] LABS: Folate 12.3 ng/mL (> or = 4.0); Vitamin B12 276 pg/mL (200-900)
[2022-10-30 17:59] LABS: Microalbum/Creatinine Ratio Ur 10.7 ug/mg cr
== END 2022-10-30 11:59 | disposition home or self-care (01) ==
LOC: HO.CHCLDS 11:58
PROVIDERS: Visit Provider Family Medicine
DX: E11.65 Type 2 diabetes mellitus with hyperglycemia (principal)
CPT/HCPCS: 36415; 80053; 80061; 82043; 82607; 82746; 85025

== ENCOUNTER 2023-01-02 13:00 | Outpatient (RCR) | payer OTHER, SELFPAY ==
[2022-11-28 13:06] VITALS: BP 129/61; PULSE 55
== END 2023-01-02 13:52 | disposition home or self-care (01) ==
LOC: HO.PT 13:00
PROVIDERS: PCP Family Medicine; Visit Provider Family Medicine
DX: R26.89 Other abnormalities of gait and mobility (principal)
CPT/HCPCS: 97110; 97112; 97162

== ENCOUNTER → 2023-01-16 12:48 | Outpatient (REF) | payer OTHER, SELFPAY ==
--- NOTE | 2023-01-16 13:00 | HM_ITS ---
Conclusion: 1. Patient was monitored for total period of 7 days 2. Baseline was normal sinus rhythm with average heart of 54 beats per minute 3. Frequent sinus bradycardia noted with 78% of time heart rate below 60 beats per minute without significant pauses 4. Occasional PACs noted with total burden of 0.3% 5. Patient reported 4 events of palpitations that correlated with sinus rhythm or sinus tachycardia or PACs MTDD
== END ==
LOC: HO.CARD 12:48
PROVIDERS: PCP Family Medicine; Visit Provider Internal Medicine
DX: I49.8 Other specified cardiac arrhythmias (principal); R55 Syncope and collapse; Z79.899 Other long term (current) drug therapy
CPT/HCPCS: 93242

== ENCOUNTER → 2023-01-16 13:00 | Outpatient (BNV) | payer OTHER, SELFPAY | PROVIDERS: PCP Family Medicine; Visit Provider Internal Medicine Cardiovascular Disease | DX: R00.1 Bradycardia, unspecified (principal) | CPT/HCPCS: 93244 ==

== ENCOUNTER → 2023-01-31 12:59 | Outpatient (BNVA) | payer OTHER, SELFPAY | PROVIDERS: Visit Provider Internal Medicine Cardiovascular Disease ==

== ENCOUNTER → 2023-02-03 14:27 | Outpatient (BNVA) | payer OTHER, SELFPAY | PROVIDERS: PCP Family Medicine; Visit Provider Nurse Practitioner Family | DX: R55 Syncope and collapse (principal); I49.1 Atrial premature depolarization; I44.4 Left anterior fascicular block; I71.20 Thoracic aortic aneurysm, without rupture, unspecified; I95.9 Hypotension, unspecified; Z87.891 Personal history of nicotine dependence; Z09 Encounter for follow-up examination after completed treatment for conditions other than malignant neoplasm | CPT/HCPCS: 93005; 99212 ==

== ENCOUNTER 2023-02-03 14:28 | Outpatient (AMB) | payer OTHER, SELFPAY ==
--- NOTE | 2023-02-03 14:46 | A.OFFVIS_ITS ---
Intake Vital Signs 02/03/23 14:47 Height 5 ft 9 in Weight 160 lb 0.889 oz BMI 23.6 BP 100/64 Blood Pressure Location Lt brachial Position Sitting Pulse 50 Intake Visit Reasons: [facility] [place] Roofing Sales Representative Required: Yes Roofing Sales Representative Language: Real Estate Services Coordinator Name: dodie oden [phone] Allergies No Known Allergies Allergy (Mild, Verified 02/03/23 14:49) NONE Medication List - Last Reconciled 02/03/23 by Annabel Jasmine NP-C albuterol sulfate 90 mcg/actuation (Ventolin HFA) 0 mcg inhalation blood sugar diagnostic (FreeStyle Lite Strips) As directed bupropion HCl 150 mg PO QAM cholecalciferol (vitamin D3) 50 mcg PO DAILY diltiazem HCl (Cardizem CD) 120 mg PO DAILY 90 days docusate sodium 100 mg PO flecainide 50 mg PO BID fluticasone propionate 50 mcg/actuation sprays intranasal hydrochlorothiazide 25 mg PO QAM lisinopril 20 mg PO QAM loratadine 10 mg PO DAILY PRN lorazepam 0.5 mg PO BID melatonin 5 mg PO BEDTIME metformin 500 mg PO BID omeprazole 20 mg PO BID HPI [facility] follow up HPI Details [place] is a 77-year-old male with past medical history of frequent PACs, dilated ascending aorta who was recently admitted to [facility] after having an episode of dizziness and narrowed vision with brief loss of consciousness. He had URI symptoms and had taken NyQuil the night before. No significant cardiac findings identified. He now presents for follow-up. Today he reports that he has been experiencing some fatigue and lightheadedness at times since his hospital discharge. He has not had any presyncope, syncope, recurrent falls. His URI symptoms are fully resolved. No chest discomfort at rest or with activity. No heart palpitations, shortness of breath, PND, orthopnea or edema. Taking meds as directed. He uses a pill pack from the pharmacy. [facility] Medical History PUD (peptic ulcer disease) GERD (gastroesophageal reflux disease) DM (diabetes mellitus) Arthritis Anxiety and depression COPD (chronic obstructive pulmonary disease) Asthma History of basal cell carcinoma Depression Left anterior fascicular block Premature atrial contractions Surgical History History of bilateral cataract extraction Hx of hemorrhoidectomy S/P TURP Hx of laminectomy Hx of colonoscopy Family History Father No problems noted. Mother Colon cancer Social History Patient Tobacco Use Status: Former Tobacco user Tobacco use type: Cigarette Review of Systems Const Details: weakness and fatigue All systems reviewed & are unremarkable except as noted in HPI and below Card Denies chest pain and Denies dyspnea on exertion Resp Denies dyspnea on exertion Physical Exam Vital Signs: Last Vital Signs Pulse 50 02/03/23 14:47 BP 100/64 02/03/23 14:47 BMI result Body Mass Index 23.6 Const General: cooperative, healthy appearing, comfortable and no acute distress Orientation/consciousness: patient oriented x3 Neck Neck: Yes normal visual inspection Resp Effort & Inspection: normal respiratory effort Auscultation: clear to auscultation bilaterally, no crackles, no rales, no rhonchi and no wheezes Cardio Jugular venous distension: no JVD Rate: regular rate Rhythm: regular rhythm Heart sounds: S1 normal heart sound present, S2 normal heart sound present, no murmurs and no rubs Neuro General: patient oriented x3 Extrem General: Yes normal to inspection Psych Appearance: grossly normal Mental Status: mental status grossly normal Speech and movement: Normal speech and movement present Office Procedures EKG Details: Today, read by me, sinus bradycardia, rate 50, left anterior fascicular block, QTC 406 millisecond which is falsely prolonged due to wide QRS [id number], Complete Assessment & Plan Assessment & Plan (1) Syncope: Code(s): R55 - Syncope and collapse Plan: Recent syncopal event preceded by dizziness and narrowed vision with brief loss of consciousness. He was evaluated at [facility] without any significant findings. Discharge note reviewed. Event was felt to be related to dose of NyQuil that he had taken the night before to treat his URI. He did undergo an outpatient Holter on 01/16/2023 for 7 days showing sinus rhythm with average heart rate 54, sinus Morris 78% of the time heart rate less than 60, PACs 0.3% of time. EKG done today showing sinus bradycardia, left anterior fascicular block, rate 50, overall unchanged from prior EKG except lower rate. His bradycardia is not the cause of his syncope. His blood pressure is on the low side. He does report some intermittent lightheadedness. He is on hydrochlorothiazide 25 mg daily. Will reduce this down to 12.5 mg daily. Reviewed need for good hydration, use caution when going sitting to standing. Avoid NyQuil use. Cardiology follow-up 3 months, sooner if needed (2) Premature atrial contractions: Comment: Foll'd by Dr. Soriano Code(s): I49.1 - Atrial premature depolarization Plan: History of PACs, frequent and symptomatic. He is on flecainide and diltiazem for PAC control. Holter monitor as above with frequency of PACs down to 0.3%. He is not noticing any recent heart palpitations. He has a known left anterior fascicular block which has been stable. QTC on EKG 406 milliseconds. Continue flecainide. With his low average heart rate will reduce his diltiazem from CD 120 mg daily down to 30 mg b.i.d. (3) Left anterior fascicular block: Code(s): I44.4 - Left anterior fascicular block Plan: Chronic and unchanged (4) Thoracic aortic aneurysm: Code(s): I71.20 - Thoracic aortic aneurysm, without rupture, unspecified Plan: Last echo 09/20/2022 showing EF 60%, normal valves, mildly dilated ascending aorta 4.1 cm. Blood pressure on the low side. Will continue to follow with periodic echoes. (5) Low blood pressure: Code(s): I95.9 - Hypotension, unspecified Plan: As above (6) Hospital discharge follow-up: Code(s): Z09 - Encounter for follow-up examination after completed treatment for conditions other than malignant neoplasm Plan: [facility] [place] discharge [place] reviewed Medications: New diltiazem HCl 30 mg PO BID 90 days 180 tabs 2RF hydrochlorothiazide 12.5 mg PO DAILY 90 tabs 1RF Discontinued diltiazem HCl (Cardizem CD) Discontinued Reason: Doctor's Order 120 mg PO DAILY 90 days 90 caps 3RF Coding Level of Care Code Est Pt Level 4 (38817) Diagnoses Syncope R55 Premature atrial contractions I49.1 Left anterior fascicular block I44.4 Thoracic aortic aneurysm I71.20 Low blood pressure I95.9 Hospital discharge follow-up Z09 CPT Codes EKG - CPT: 48485-[id number], Complete ([id number]) Time Spent (min) 28
[2023-02-03 14:47] VITALS: BP 100/64; PULSE 50; BMI 23.6
== END 2023-02-03 15:14 | disposition home or self-care (01) ==
PROVIDERS: PCP Family Medicine; Visit Provider Nurse Practitioner Family
DX: R55 Syncope and collapse (principal); I49.1 Atrial premature depolarization; I44.4 Left anterior fascicular block; I71.20 Thoracic aortic aneurysm, without rupture, unspecified; I95.9 Hypotension, unspecified; Z09 Encounter for follow-up examination after completed treatment for conditions other than malignant neoplasm
CPT/HCPCS: 93010; 99214

== ENCOUNTER → 2023-05-08 13:36 | Outpatient (BNVA) | payer OTHER, SELFPAY | PROVIDERS: PCP Family Medicine; Visit Provider Nurse Practitioner Family | DX: I49.1 Atrial premature depolarization (principal); I44.4 Left anterior fascicular block; I71.20 Thoracic aortic aneurysm, without rupture, unspecified; R55 Syncope and collapse | CPT/HCPCS: 93005; 99212 ==

== ENCOUNTER 2023-05-08 13:37 | Outpatient (AMB) | payer OTHER, SELFPAY ==
--- NOTE | 2023-05-08 14:23 | MHC.OFFVIS ---
Intake Vital Signs 05/08/23 14:24 Height 5 ft 9 in Weight 159 lb 9.835 oz BMI 23.6 BP 120/62 Blood Pressure Location Lt brachial Position Sitting Pulse 55 Pulse Source Monitor Intake Visit Reasons: 3 mth f/up Intake Note: patient having left arm pain its more pain full when he laying down Business Assistant Required: Yes Business Assistant Language: Grounds Maintenance Manager Name: dodie salinas [phone] Allergies No Known Allergies Allergy (Mild, Verified 05/08/23 14:27) NONE Medication List - Last Reconciled 05/08/23 by Annabel Jasmine, TOLL TEST DESK WORKER-C albuterol sulfate 90 mcg/actuation (Ventolin HFA) 0 mcg inhalation blood sugar diagnostic (FreeStyle Lite Strips) As directed bupropion HCl 150 mg PO QAM cholecalciferol (vitamin D3) 50 mcg PO DAILY diltiazem HCl 30 mg PO BID 90 days docusate sodium 100 mg PO flecainide 50 mg PO BID fluticasone propionate 50 mcg/actuation sprays intranasal hydrochlorothiazide 12.5 mg PO DAILY lisinopril 20 mg PO QAM loratadine 10 mg PO DAILY PRN lorazepam 0.5 mg PO BID melatonin 5 mg PO BEDTIME metformin 500 mg PO BID omeprazole 20 mg PO BID HPI 3 mth f/up HPI Details [place] is a 78-year-old male past medical history of frequent PACs, dilated ascending aorta, recent syncope in setting of URI symptoms and taking NyQuil the night before who presents for follow-up. Today he reports that he has been feeling well. He is vague in the description of any symptoms. He does describe an ache in his chest area which seems to be random occurrence. He has a discomfort in his left arm that is worsened with range of motion. No concerning shortness of breath, palpitations, presyncope, syncope, falls. No PND, orthopnea or edema. Taking meds as directed. 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 [facility] Medical History PUD (peptic ulcer disease) GERD (gastroesophageal reflux disease) DM (diabetes mellitus) Arthritis Anxiety and depression COPD (chronic obstructive pulmonary disease) Asthma History of basal cell carcinoma Depression Left anterior fascicular block Premature atrial contractions Surgical History History of bilateral cataract extraction Hx of hemorrhoidectomy S/P TURP Hx of laminectomy Hx of colonoscopy Family History Father No problems noted. Mother Colon cancer Social History Patient Tobacco Use Status: Former Tobacco user Tobacco use type: Cigarette Review of Systems Const All systems reviewed & are unremarkable except as noted in HPI and below ENT Reports dizziness Card Reports chest pain, Denies chest pain at rest, Denies chest pain with activity, Reports rapid heart rate, Denies pedal edema, Denies edema, Denies leg edema, Denies lightheadedness, Denies palpitations, Denies dyspnea, Denies dyspnea on exertion and Denies orthopnea Resp Denies cough, Denies dyspnea and Denies dyspnea on exertion GI Denies hematochezia and Denies change in stool character Musc Denies abnormal gait, Denies limited range of motion, Denies muscle cramps, Denies muscle weakness, Denies numbness, Denies radiating pain into limb, Denies stiffness and Denies tingling Neuro Denies abnormal gait, Reports dizziness, Denies numbness and Denies tingling Endo Denies palpitations Physical Exam Vital Signs: Last Vital Signs Pulse 55 05/08/23 14:24 BP 120/62 05/08/23 14:24 BMI result Body Mass Index 23.6 Const General: cooperative, healthy appearing, comfortable and no acute distress Orientation/consciousness: patient oriented x3 Neck Neck: Yes normal visual inspection Resp Effort & Inspection: normal respiratory effort Auscultation: clear to auscultation bilaterally, no crackles, no rales, no rhonchi and no wheezes Cardio Jugular venous distension: no JVD Rate: regular rate Rhythm: regular rhythm Heart sounds: S1 normal heart sound present, S2 normal heart sound present, no murmurs and no rubs Neuro General: patient oriented x3 Extrem General: Yes normal to inspection Psych Appearance: grossly normal Mental Status: mental status grossly normal Speech and movement: Normal speech and movement present Office Procedures EKG Details: Today, read by me, sinus bradycardia, left axis deviation, nonspecific intraventricular conduction delay, rate 55, QTC 405 millisecond [id number], Complete Assessment & Plan Assessment & Plan (1) Syncope: Code(s): R55 - Syncope and collapse Plan: Recent syncopal event preceded by dizziness and narrowed vision with brief loss of consciousness. He was evaluated at [facility] without any significant findings. Discharge note reviewed. Event was felt to be related to dose of NyQuil that he had taken the night before to treat his URI. He did undergo an outpatient Holter on 01/16/2023 for 7 days showing sinus rhythm with average heart rate 54, sinus Morris 78% of the time heart rate less than 60, PACs 0.3% of time. EKG done last visit showing sinus bradycardia, left anterior fascicular block, rate 50, overall unchanged from prior EKG except lower rate. EKG today unchanged, rate 55. His bradycardia is not likely the cause of his syncope. On last visit his blood pressure was low. His hydrochlorothiazide was reduced from 25 mg daily down to 12.5 mg daily. Blood pressure today 120/62. No reports of lightheadedness, presyncope, syncope, falls. Reviewed need for good hydration, use caution when going sitting to standing. Avoid NyQuil use. Cardiology follow-up 6 months, sooner if needed (2) Premature atrial contractions: Comment: Foll'd by Dr. Soriano Code(s): I49.1 - Atrial premature depolarization Plan: History of PACs, frequent and symptomatic. He is on flecainide and diltiazem for PAC control. Holter monitor as above with frequency of PACs down to 0.3%. He is not noticing any recent heart palpitations. He has a known left anterior fascicular block which has been stable. QTC on today EKG 405 milliseconds. Continue flecainide. Continue diltiazem at 30 mg b.i.d. (3) Left anterior fascicular block: Code(s): I44.4 - Left anterior fascicular block Plan: Chronic and unchanged (4) Thoracic aortic aneurysm: Code(s): I71.20 - Thoracic aortic aneurysm, without rupture, unspecified Plan: Last echo 09/20/2022 showing EF 60%, normal valves, mildly dilated ascending aorta 4.1 cm. Blood pressure controlled. Will continue to follow with periodic echoes. Plan Time spent on chart review, documentation, interview and assessment Coding Level of Care Code Est Pt Level 4 (13347) Diagnoses Syncope R55 Premature atrial contractions I49.1 Left anterior fascicular block I44.4 Thoracic aortic aneurysm I71.20 CPT Codes EKG - CPT: 70796-[id number], Complete ([id number]) Time Spent (min) 24
[2023-05-08 14:24] VITALS: BP 120/62; PULSE 55; BMI 23.6
== END 2023-05-08 15:01 | disposition home or self-care (01) ==
PROVIDERS: PCP Family Medicine; Visit Provider Nurse Practitioner Family
DX: M79.602 Pain in left arm (principal)
CPT/HCPCS: 93010; 99214

== ENCOUNTER 2023-08-29 14:03 | Outpatient (REF) | payer OTHER, SELFPAY ==
--- NOTE | ~2023-08-29 | XR_ITS ---
EXAMINATION: XR SHOULDER, LEFT CLINICAL INFORMATION: Left shoulder pain. COMPARISON: X-rays of the left clavicle September 2018. TECHNIQUE: AP external rotation, Grashey, scapular Y, and axillary views of the left shoulder. FINDINGS: GLENOHUMERAL JOINT: Possible subchondral cysts along the inferior aspect of the glenoid. No definite joint space narrowing. ACROMIOCLAVICULAR JOINT: Mild osteoarthritis. Surrounding bone and soft tissues are unremarkable. XR/XR shoulder LT min 2V IMPRESSION: 1. Possible mild osteoarthritis of the glenohumeral joint. 2. Mild osteoarthritis of the acromioclavicular joint.
[2023-08-29 15:48] LABS: Basophils Percent Auto 0.5 % (0-2); Eosinophils Absolute Auto 0.1 X10*3/uL (0.0-0.4); Eosinophils Percent Auto 2.6 % (0-4); Hematocrit 37.7 % (42.0-52.0); Hemoglobin 12.7 g/dl (14.0-18.0); Imm Gran Abs Auto 0.01 X10*3/uL (0.00-0.03); Imm Gran Pct Auto 0.2 % (0.0-0.4); Lymphocytes Percent Auto 23.7 % (20-40); MANUAL DIFF FLAG NO; Mean Corpuscular HGB Conc 33.7 g/dl (31.0-36.0); Mean Corpuscular Hemoglobin 30.3 pg (27.0-33.0); Mean Platelet Volume 9.6 fL (9.4-12.4); Monocytes Absolute Auto 0.4 X10*3/uL (0.1-1.2); Monocytes Percent Auto 10.1 % (2-11); Neutrophils Absolute Auto 2.7 x10*3/uL (2.0-8.3); Neutrophils Percent Auto 62.9 % (45-73); Platelet Count 219 X10*3/uL (160-400); Red Blood Count 4.19 X10*6/uL (4.60-5.80); Red Cell Distribution Width 12.2 % (11.0-16.0); White Blood Count 4.3 X10*3/uL (4.8-10.8)
[2023-08-29 16:18] LABS: Alanine Aminotransferase 15 U/L (0-40); Albumin Level 4.4 g/dL (3.5-5.0); Alkaline Phosphatase 99 U/L (39-117); Anion Gap 12 (12-20); Aspartate Amino Transferase 14 U/L (5-37); Bilirubin Total 0.5 mg/dL (0.0-1.0); Blood Urea Nitrogen 21 mg/dL (9-16); Carbon Dioxide 28 mmol/L (22-29); Chloride 107 mmol/L (96-108); Cholesterol 163 mg/dL (<200); Estimated Glomerular Filt Rate > 60; Glucose Random 113 mg/dL (60-115); HDL Cholesterol 30 mg/dL (>40); LDL Cholesterol Calculated 106 mg/dL (<100); Potassium 3.8 mmol/L (3.3-5.1); Sodium 143 mmol/L (135-145); Total Protein 7.4 g/dL (6.5-8.0); Triglycerides 137 mg/dL (<150)
[2023-08-29 16:34] LABS: TSH reflex Free T4 0.76 uIU/mL (0.32-4.0)
[2023-08-29 16:48] LABS: Folate 10.5 ng/mL (> or = 4.0); Vitamin B12 202 pg/mL (200-900)
[2023-09-01 04:08] LABS: ~HepC Num1 0.05 S/CO (0.00-0.79); ~Hepatitis C Antibody Nonreactive (Nonreactive)
== END 2023-08-29 14:04 | disposition home or self-care (01) ==
LOC: HO.XRAY 14:03
PROVIDERS: PCP Family Medicine; Visit Provider Family Medicine
DX: E11.65 Type 2 diabetes mellitus with hyperglycemia (principal); M79.602 Pain in left arm
CPT/HCPCS: 36415; 73030; 80053; 80061; 82607; 82746; 84443; 85025; 86803

== ENCOUNTER 2023-10-17 11:20 | Outpatient (REF) | payer OTHER, SELFPAY | END 2023-10-17 11:21 | disposition home or self-care (01) | LOC: HO.CHCLDS 11:20 | PROVIDERS: Referring Provider Physician Assistant; Visit Provider Family Medicine | DX: C61 Malignant neoplasm of prostate (principal); Z12.5 Encounter for screening for malignant neoplasm of prostate | CPT/HCPCS: 36415; 84153 ==

== ENCOUNTER 2024-03-24 12:43 | Outpatient (REF) | payer OTHER, SELFPAY ==
[2024-03-24 14:23] LABS: MANUAL DIFF FLAG NO
[2024-03-24 14:39] LABS: Basophils Percent Auto 0.5 % (0-2); Eosinophils Absolute Auto 0.1 X10*3/uL (0.0-0.4); Eosinophils Percent Auto 1.6 % (0-4); Hematocrit 38.7 % (42.0-52.0); Hemoglobin 12.4 g/dl (14.0-18.0); Lymphocytes Absolute Auto 0.9 X10*3/uL (1.2-4.9); Lymphocytes Percent Auto 21.9 % (20-40); Mean Corpuscular Hemoglobin 29.6 pg (27.0-33.0); Mean Corpuscular Volume 92.4 fL (80.0-98.0); Mean Platelet Volume 9.6 fL (9.4-12.4); Monocytes Absolute Auto 0.4 X10*3/uL (0.1-1.2); Monocytes Percent Auto 8.4 % (2-11); Neutrophils Absolute Auto 2.9 x10*3/uL (2.0-8.3); Neutrophils Percent Auto 67.6 % (45-73); Platelet Count 219 X10*3/uL (160-400); Red Blood Count 4.19 X10*6/uL (4.60-5.80); Red Cell Distribution Width 12.3 % (11.0-16.0); White Blood Count 4.3 X10*3/uL (4.8-10.8)
[2024-03-24 14:48] LABS: Anion Gap 10 (12-20); Blood Urea Nitrogen 21 mg/dL (9-16); Calcium 9.6 mg/dL (8.4-10.2); Carbon Dioxide 28 mmol/L (22-29); Chloride 109 mmol/L (96-108); Estimated Glomerular Filt Rate > 60; Glucose Random 129 mg/dL (60-115); Potassium 4.1 mmol/L (3.3-5.1); Sodium 143 mmol/L (135-145)
== END 2024-03-24 12:44 | disposition home or self-care (01) ==
LOC: HO.CHCLDS 12:43
PROVIDERS: Visit Provider Internal Medicine
DX: N39.41 Urge incontinence (principal)
CPT/HCPCS: 36415; 80048; 85025

== ENCOUNTER 2024-03-25 14:47 | Outpatient (REF) | payer OTHER, SELFPAY ==
--- NOTE | ~2024-03-25 | US_ITS ---
EXAMINATION: US PELVIS LIMITED (BLADDER) CLINICAL INFORMATION: Urinary incontinence, check PVR. COMPARISON: No prior available. Correlation made with CT abdomen and pelvis 12/03/2019. TECHNIQUE: Real-time imaging of the bladder. FINDINGS: BLADDER: Well distended. It demonstrates a mildly diffusely thickened and mildly trabeculated wall.. Bilateral ureteral jets are demonstrated. Prevoid bladder volume is 111 mL. Postvoid bladder volume is 34 mL. Postvoid residual = 31%. Prostate is enlarged with volume estimated at 103 mL. US/US bladder IMPRESSION: 1. Urinary bladder demonstrate a mildly thickened and trabeculated wall with 34 mL post void residual. 2. Marked prostatic enlargement. Electronically signed by: Adriano Lee MD 03/25/2024 04:08 PM PETERSON GRAVES
== END 2024-03-25 14:48 | disposition home or self-care (01) ==
LOC: HO.US 14:47
PROVIDERS: PCP Family Medicine; Visit Provider Internal Medicine
DX: R32 Unspecified urinary incontinence (principal)
CPT/HCPCS: 76857

== ENCOUNTER → 2024-03-25 14:50 | Outpatient (BNV) | payer OTHER, SELFPAY | PROVIDERS: PCP Family Medicine; Visit Provider Radiology Diagnostic Radiology | DX: R32 Unspecified urinary incontinence (principal) | CPT/HCPCS: 76857 ==

== ENCOUNTER 2024-04-08 13:21 | Outpatient (AMB) | payer OTHER, SELFPAY ==
[2024-04-08 13:25] VITALS: BP 130/76; PULSE 49; BMI 24.1
--- NOTE | 2024-04-08 13:25 | MHC.OFFVIS ---
Vital Signs 04/08/24 13:25 Height 5 ft 9 in Weight 163 lb 2.273 oz BMI 24.1 BP 130/76 Blood Pressure Location Lt brachial Position Sitting Pulse 49 L Intake Visit Reasons: r/s 11/10-04/05 6 mos followup w/ekg Intake Note: Follow-up with ekg feeling good Log Handling Equipment Operator Required: Yes Log Handling Equipment Operator Services: Log Handling Equipment Operator Present Log Handling Equipment Operator Name: nahomy Delarosa Allergies No Known Allergies Allergy (Mild, Verified 05/08/23 14:27) NONE Medication List - Last Reconciled 04/08/24 by Mathew Soriano MD albuterol sulfate 90 mcg/actuation (Ventolin HFA) 0 mcg inhalation blood sugar diagnostic (FreeStyle Lite Strips) As directed bupropion HCl XL 150 mg PO QAM cholecalciferol (vitamin D3) 50 mcg PO DAILY diltiazem HCl 30 mg PO BID 90 days docusate sodium 100 mg PO flecainide 50 mg PO BID fluticasone propionate 50 mcg/actuation sprays intranasal hydrochlorothiazide 12.5 mg PO QAM lisinopril 20 mg PO QAM loratadine 10 mg PO DAILY PRN lorazepam 0.5 mg PO BID melatonin 5 mg PO BEDTIME metformin 500 mg PO BID omeprazole 20 mg PO BID HPI Comments Details: [place] comes for follow-up from cardiac arrhythmia perspective. He has not had any major significant arrhythmias. He also has not had any significant cardiac symptoms. History was obtained with help of water quality technician. He said he was balance issues and therefore does not walk a lot. He said he went to physical therapy did not help much. He does not use any support devices. He has not had any falls. Takes all his medications. No lightheadedness, syncope. [facility] Medical History PUD (peptic ulcer disease) GERD (gastroesophageal reflux disease) DM (diabetes mellitus) Arthritis Anxiety and depression COPD (chronic obstructive pulmonary disease) Asthma History of basal cell carcinoma Depression Left anterior fascicular block Premature atrial contractions Surgical History History of bilateral cataract extraction Hx of hemorrhoidectomy S/P TURP Hx of laminectomy Hx of colonoscopy Family History Father No problems noted. Mother Colon cancer Social History Patient Tobacco Use Status: Former Tobacco user Tobacco use type: Cigarette Review of Systems Const Denies chills, Denies fatigue, Denies fever(s), Denies frequent falls, Denies weakness, Denies weight gain and Denies weight loss ENT Denies dizziness Card Denies chest pain, Denies leg edema, Denies lightheadedness, Denies palpitations, Denies dyspnea, Denies dyspnea on exertion, Denies orthopnea and Denies other (loss of consciousness) Resp Denies cough, Denies dyspnea and Denies dyspnea on exertion GI Denies hematochezia and Denies change in stool character Musc Denies abnormal gait, Denies muscle weakness, Denies numbness, Denies radiating pain into limb and Denies tingling Neuro Denies abnormal gait, Denies dizziness, Denies frequent falls, Denies numbness, Denies tingling and Denies weakness Endo Denies fatigue and Denies palpitations Physical Exam Vital Signs: Last Vital Signs Pulse 49 L 04/08/24 13:25 BP 130/76 04/08/24 13:25 BMI result Body Mass Index 24.1 Const General: cooperative, comfortable, no acute distress, alert and awake Nutritional Appearance: average body habitus Orientation/consciousness: patient oriented x3 Limitations: no limitations Neck Neck: Yes trachea midline, Yes supple and Yes no JVD Resp Effort & Inspection: normal respiratory effort Auscultation: clear to auscultation bilaterally and diminished lung sounds Cardio Jugular venous distension: no JVD Palpation: normal PMI Rate: regular rate Rhythm: regular rhythm Heart sounds: S1 normal heart sound present and S2 normal heart sound present GI Auscultation: normal bowel sounds Skin General skin exam: no rashes or lesions noted Neuro General: patient oriented x3 and no focal motor deficits Extrem General: Yes no clubbing, cyanosis or edema Psych Appearance: grossly normal Office Procedures EKG Details: EKG shows sinus bradycardia with left anterior fascicular block, unchanged 85126-[id number], Complete Assessment & Plan Assessment & Plan (1) Premature atrial contractions: Comment: Foll'd by Dr. Soriano Code(s): I49.1 - Atrial premature depolarization Category: Medical Plan: Highly symptomatic and frequent PACs which are very well suppressed on flecainide therapy. Needs combination of diltiazem therapy. Continue the same. If symptoms she was advised office especially if he was frequent and prolonged palpitations. EKGs every 6 months will be scheduled. (2) Thoracic aortic aneurysm: Code(s): I71.20 - Thoracic aortic aneurysm, without rupture, unspecified Category: Medical Plan: Thoracic aortic enlargement which is stable. Follow-up echocardiogram 6 months time. Continue aggressive blood pressure control which is currently well optimized. Continue aggressive diabetes management goal hemoglobin A1c less than 7%. Goal LDL less than 100 mg/dL. If remains stable does not require any surgical intervention. This was discussed with him. He is advise physical therapy for gait and balance improvement although he declines. Will follow up in the clinic in 6 months for EKG in 1 year with me. Thank you for allowing me to partake in his care Orders: Orders CA echo transthoracic complete 6 Months I71.20 - Thoracic aortic aneurysm, without rupture, unspecified Coding Level of Care Code Est Pt Level 4 (88634) Complex EM visit Add On G2211 Diagnoses Premature atrial contractions I49.1 Thoracic aortic aneurysm I71.20 CPT Codes EKG - CPT: 91978-Bcjnjlralrzpyqryz, Complete ([id number])
== END 2024-04-08 13:53 | disposition home or self-care (01) ==
PROVIDERS: PCP Family Medicine; Visit Provider Internal Medicine Cardiovascular Disease
DX: I49.1 Atrial premature depolarization (principal); I71.20 Thoracic aortic aneurysm, without rupture, unspecified
CPT/HCPCS: 93010; 99214; G2211

== ENCOUNTER → 2024-04-08 13:21 | Outpatient (BNVA) | payer OTHER, SELFPAY | PROVIDERS: PCP Family Medicine; Visit Provider Internal Medicine Cardiovascular Disease | DX: I49.1 Atrial premature depolarization (principal); I71.20 Thoracic aortic aneurysm, without rupture, unspecified; R94.31 Abnormal electrocardiogram [ECG] [EKG]; I44.4 Left anterior fascicular block; R00.1 Bradycardia, unspecified | CPT/HCPCS: 93005; 99212 ==

== ENCOUNTER → 2024-07-27 12:32 | Outpatient (REF) | payer OTHER, SELFPAY ==
--- NOTE | 2024-07-27 12:37 | CA_ITS ---
Transthoracic Echocardiogram Patient (Last, First, Middle): [place] Key A Gender: Male Date of : 1945 Age: 79 Procedure Date: 07/27/2024 Procedure Type: Transthoracic Echocardiogram Location: OP Height: 175.26 cm Weight: 70.31 kg BSA: 1.85 m2 Heart Rate: 49 bpm BP: 108 / 54 mmHg Astronomy Teacher: TO/RC Referring MD: Mathew Soriano MD Grout Machine Operator: Mathew Soriano MD Symptoms: I71.20 - Thoracic aortic aneurysm, without rupture, unspecified Study Quality: Adequate ECG Rhythm: Bradycardia Conclusions: - 1. Normal LV ejection fraction 55-60% with grade 1 diastolic dysfunction 2. Trace aortic and mild mitral regurgitation 3. Mildly dilated ascending aorta at 4.2 cm 4. Normal RV systolic pressure 5. No gross pericardial effusion Findings Left Ventricle Normal left ventricular size, thickness, and systolic function. The visually estimated ejection fraction is between 55-60%. Spectral Doppler is indicative of an impaired relaxation filling pattern. E/E prime ratio is <8, consistent with normal filling pressures. Evidence suggests grade I (mild) diastolic dysfunction. Right Ventricle Normal right ventricular cavity size and systolic function. Atria The left atrium is likely dilated. There is no evidence of interatrial shunt. The right atrium is normal in size. Aortic Valve Normal aortic valve structure and function. There is no aortic valve stenosis. There is trace (trivial) aortic valve regurgitation. Mitral Valve There is mild anterior and posterior mitral leaflet thickening. There is mild mitral valve regurgitation. There is no mitral valve stenosis. Pulmonic Valve The pulmonic valve was not well visualized. Tricuspid Valve Likely normal tricuspid valve structure and function. There is trace tricuspid valve regurgitation. The right ventricular systolic pressure is normal. The right ventricular systolic pressure is 19 mmHg. Normal right atrial pressure. There is no evidence of pulmonary hypertension. Great Vessels The pulmonary artery was not well visualized. There is mild dilatation of the ascending aorta measuring 4.20 cm. Small plaque is seen in the sino tubular ridge. Venous The inferior vena cava is normal in size and collapses greater than 50% with inspiration. Pericardium/Pleural There is no evidence of pericardial effusion. Prior Study Comparison No significant change compared to prior study dated: 09/20/2022. Measurements 2D Linear Measurements IVSd: 1.03 0.6-0.9/0.6-1.0 cm LVIDd: 4.73 3.9-5.3/4.2-5.9 cm LVIDd Index: 2.56 2.4-3.2/2.2-3.1 cm/m2 LVIDs: 3.17 2.0-3.6 cm LVPWd: 0.77 0.7-1.1 cm LA Diam: 3.90 2.7-3.8/3.0-4.0 cm LAIDs Index: 2.11 1.5-2.3 cm/m2 LV Mass: 179.13 67-162/88-224 g LV Mass Index: 96.83 43-95/49-115 g/m2 LVOT Diam: 2.40 3.0+(-)1.3 cm Mitral Valve MV Pk E: 0.39 MV PK A: 0.45 MV Decel Time: 357.00 E/A: 0.90 E'Lateral: 10.40 E'Medial: 5.87 E/E' Med: 6.60 E/E' Lat: 3.70 PHT: 105.00 MVA PHT: 2.10 Decel [place]: 1.09 Aortic Valve AoV Pk Magan: 1.49 AoV Mn Magan: 0.99 AoV VTI: 0.34 AoV Pk Grad: 9.00 Aov Mn Grad: 4.00 RAJAN Cont.VTI: 3.08 LVOT LVOT Pk Magan: 0.92 LVOT Mn Magan: 0.62 LVOT VTI: 0.23 LVOT Pk Grad: 3.00 LVOT Mn Grad: 2.00 LVOT Diam: 2.40 LVOT Area: 4.52 Diastolic Function MV Pk E: 0.39 MV Pk A: 0.45 E/A: 0.90 E'Medial: 5.87 E/E' Med: 6.60 E' Laterial: 10.40 E/E' Lat: 3.70 Right Ventricle TAPSE (mm): 23.00 TVS' Magan: 10.80 Tricuspid Valve TR Pk Magan: 2.00 TR Pk Grad: 16.00 RA Press: 3.00 RVSP: 19.00 Great Vessels Aorta Sinus of Valsalva: 3.70 2.0-3.5 cm Ao Asc: 4.20 2.1-3.4 cm Updated in Other Vendor System with Status of Final Mathew Soriano MD electronically signed on 07/28/2024 4:29:06 PM with status of Final
--- OUTSIDE RECORDS SUMMARY | 2024-07-27 13:39 | XMS_ITS | Encounter Summary ---
Author Organization [employer] Address [address] [place] [address] Care Team Providers Care Hoof And Shoe Inspector Name Role Phone Glo Delgadillo MD Primary Care Provider [phone] Encounter Details Date Type Department Care Team (Late st Contact Info) Description 03/24/2024 Orders Only [facility] [address] [place], [place] [phone] Doreen Anderson MD [address] [place], [place] [phone] Social History Tobacco Use Types Packs/Day Years Used Date Smoking Tobacco: Former Cigarettes Passive Smoke Exposure: Never Smokeless Tobacco: Never Comments:Last cig use was 30 yrs ago, vague in terms of timing Alcohol Use Standard Drinks/Week Comments Never 0 (1 standard drink = 0.6 oz pur e alcohol) Depression Answer Date Recorded Patient Health Questionnaire-9 Score 3 05/15/2023 Patient Health Questionnaire-9 Score 3 05/15/2023 Last PHQ-9: Questionnaire Data Not on file 0 05/15/2023 Housing Stability Answer Date Recorded What is your housing situation today? I have alondra tello 01/06/[address] you li ve. Do you have problems with any of the following? None of the above 01/06/2023 Food Insecurity Answer Date Recorded Within the past 12 months, y ou worried that your food would run out before you got money to buy more: Never True 03/13/2023 Within the past 12 months,th e food you bought just didn't last and you didn't have enough money to get more: Never True Transportation Answer Date Recorded In the past 12 months, has l ack of transportation kept you from medical appts, meetings, work or from getting things needed for daily living? No 01/06/2023 Utilities Answer Date Recorded In the past 12 months, has t he electric, gas, oil or water company threatened to shut off services in your home? No 01/06/2023 Depression Answer Date Recorded Patient Health Questionnaire-2 Score 2 05/15/2023 Sex and Gender Information Value Date Recorded Sex Assigned at Male 01/14/2022 10:14 AM EDT Legal Sex Male 10:14 AM EDT Gender Identity Male 01/14/2022 10:14 AM EDT Sexual Orientation Straight 01/14/2022 10 :14 AM EDT documented as of this encounter Plan of Treatment Upcoming Encounters Date Type Department Care Team ([facility] st Contact Info) Description 09/23/2024 1:30 PM EDT Clinical Support [facility] PEDS [address] [place] [address] Yi Burgess RN [address] [place], [place] [phone] 09/30/2024 1:45 PM EDT Office Visit [facility] MEDICINE [address], [place] [phone] Heavenly Walters MD [address] [place], [place] [phone] documented as of this encounter Procedures Procedure Name Priority Date/Time Associated Diagnosis Comments US BLADDER Routine 03/25/2024 3:01 PM EST documented in this encounter Results * US BLADDER (03/25/2024 3:01 PM EST) Anatomical Region Laterality Modality Abdomen Ultrasound 03/25/2024 3:01 PM EST Narrative 03/25/2024 4:10 PM EST ? [facility] ?[address] ?[place] [address] ? Ultrasound Report ? Signed ? Patient: Shahid,Daron ?MR#: [id number] ?? [id number] ? : 1945 ?Acct:[id number] ? Age/Sex: 79 / M ?ADM Date: //25 ? Loc: HO.US ? Attending Dr: Doreen Anderson MD ? Ordering Physician: Doreen Anderson MD ?? Date of Service: 03/25/24 ?? Procedure(s): US bladder ?? Accession Number(s): [id number] ? cc: Doreen Anderson MD; Glo Delgadillo MD ? EXAMINATION: ?? US PELVIS LIMITED (BLADDER) ? CLINICAL INFORMATION: ?? Urinary incontinence, check PVR. ? COMPARISON: ?? No prior available. Correlation made with CT abdomen and pelvis ?? 12/03/2019. ? TECHNIQUE: ?? Real-time imaging of the bladder. ? FINDINGS: ? BLADDER: Well distended. It demonstrates a mildly diffusely thickened ?? and mildly trabeculated wall.. Bilateral ureteral jets are ?? demonstrated. Prevoid bladder volume is 111 mL. Postvoid bladder volume ?? is 34 mL. Postvoid residual = 31%. ? Prostate is enlarged with volume estimated at 103 mL. ? US/US bladder ?? IMPRESSION: ?? 1. Urinary bladder demonstrate a mildly thickened and trabeculated wall ?? with 34 mL post void residual. ?? 2. Marked prostatic enlargement. ? Electronically signed by: ??Adriano Lee MD ??03/25/2024 04:08 PM EST RP ? Dictated By: ?Adriano Lee MD ? Signed By: ?<Electronically signed by Adriano Lee MD in OV> ?03/25/24 1608 ? DD/ 1501 ? TD/TT: 03/25/24 1511 ? [facility] ? Procedure Note [facility] - 03/25/[address] [address] Ultrasound Report Signed Patient: [place] Key [facility]#: [id number] : 6Acct:[id number] Age/Sex: 79 / MADM Date: 03/25/24 Loc: HO.US Attending Dr: Doreen Anderson MD Ordering Physician: Doreen Anderson MD Date of Service: 03/25/24 Procedure(s): US bladder Accession Number(s): [id number] cc: Doreen Anderson MD; Glo Delgadillo MD EXAMINATION: US PELVIS LIMITED (BLADDER) CLINICAL INFORMATION: Urinary incontinence, check PVR. COMPARISON: No prior available. Correlation made with CT abdomen and pelvis 12/03/2019. TECHNIQUE: Real-time imaging of the bladder. FINDINGS: BLADDER: Well distended. It demonstrates a mildly diffusely thickened and mildly trabeculated wall.. Bilateral ureteral jets are demonstrated. Prevoid bladder volume is 111 mL. Postvoid bladder volume is 34 mL. Postvoid residual = 31%. Prostate is enlarged with volume estimated at 103 mL. US/US bladder IMPRESSION: 1. Urinary bladder demonstrate a mildly thickened and trabeculated wall with 34 mL post void residual. 2. Marked prostatic enlargement. Electronically signed by: Adriano Lee MD 03/25/2024 04:08 PM EST RP Dictated By: Adriano Lee MD Signed By: <Electronically signed by Adriano Lee MD in OV> 03/25/24 1608 DD/ 1501 TD/TT: 03/25/24 1511 [facility]: us Doreen Anderson MD IMG US PROCEDURES Final Resul t documented in this encounter Visit Diagnoses Not on filedocumented in this encounter Additional Health Concerns Assessment Noted Time PHQ-9 Depression Total Score: 3 05/15/19 24 3:05 PM EST documented as of this encounter Care Teams Hoof And Shoe Inspector Relationship Specialty Start Date End Date Glo Delgadillo MD [address] [place] [address] PCP - General Family Medicine 12/18/20 09/29/24 Blank [address], [place] [address] Consulting Physician Urology 03/13/23 documented as of this encounter
--- OUTSIDE RECORDS SUMMARY | 2024-07-27 13:39 | XMS_ITS | Encounter Summary ---
Author Organization [employer] Address [address] [place] [address] Care Team Providers Care Wool Sorter Name Role Phone Glo Delgadillo MD Primary Care Provider [phone] Encounter Details Date Type Department Care Team ([facility] st Contact Info) Description 07/22/2024 Telephone C [facility] [address] [place], [place] [phone] Glo Delgadillo MD [address] [place], [place] [phone] Social History Tobacco Use Types Packs/Day Years Used Date Smoking Tobacco: Former Cigarettes Passive Smoke Exposure: Never Smokeless Tobacco: Never Comments:Last cig use was 30 yrs ago, vague in terms of timing Alcohol Use Standard Drinks/Week Comments Never 0 (1 standard drink = 0.6 oz pur e alcohol) Depression Answer Date Recorded Patient Health Questionnaire-9 Score 3 07/22/2024 Patient Health Questionnaire-9 Score 3 07/22/2024 Last PHQ-9: Questionnaire Data Not on file 0 07/22/2024 Housing Stability Answer Date Recorded What is your housing situation today? I have alondra tello 07/22/[address] you li ve. Do you have problems with any of the following? None of the above 07/22/2024 Food Insecurity Answer Date Recorded Within the past 12 months, y ou worried that your food would run out before you got money to buy more: Never True 07/22/2024 Within the past 12 months,th e food you bought just didn't last and you didn't have enough money to get more: Never True 10/2024 Transportation Answer Date Recorded In the past 12 months, has l ack of transportation kept you from medical appts, meetings, work or from getting things needed for daily living? No 07/22/2024 Utilities Answer Date Recorded In the past 12 months, has t he electric, gas, oil or water company threatened to shut off services in your home? No 07/22/2024 Depression Answer Date Recorded Patient Health Questionnaire-2 Score 2 07/22/2024 Internet Access Answer Date Recorded Internet Access Q1 Yes 07/22/2024 Internet Access Q2 Not on file 07/22/2024 Sex and Gender Information Value Date Recorded Sex Assigned at Male 01/14/2022 10:14 AM EDT Legal Sex Male 10:14 AM EDT Gender Identity Male 01/14/2022 10:14 AM EDT Sexual Orientation Straight 01/14/2022 10 :14 AM EDT documented as of this encounter Miscellaneous Notes * Telephone Encounter - Twyla Gardner LPN - 07/22/2024 1:10 PM EDT Rx generated and faxed to [facility] ----- Message from Glo Delgadillo MD sent at 07/22/2024 12:32 PM EDT ----- Can we send a walker please * Telephone Encounter - Twyla Gardner LPN - 07/22/2024 1:10 PM EDT ----- Message from Glo Delgadillo MD sent at 07/22/2024 12:32 PM EDT ----- Can we send a walker please documented in this encounter Plan of Treatment Upcoming Encounters Date Type Department Care Team (Late st Contact Info) Description 09/23/2024 1:30 PM EDT Clinical Support [facility]S [address] [place] [address] Yi Burgess, LISA [address] [place] [address] 09/30/2024 1:45 PM EDT Office Visit [facility] MEDICINE [address] [place] [phone] Heavenly Walters MD [address] [place] [address] documented as of this encounter Visit Diagnoses Not on filedocumented in this encounter Additional Health Concerns Assessment Noted Time PHQ-9 Depression Total Score: 3 07/23/19 25 11:02 AM EDT documented as of this encounter Care Teams Wool Sorter Relationship Specialty Start Date End Date Glo Delgadillo MD [address] [place] [address] PCP - General Family Medicine 12/18/20 09/29/24 Blank Gilliam, [facility] [address], [place] [address] Consulting Physician Urology 03/13/23 documented as of this encounter
--- OUTSIDE RECORDS SUMMARY | 2024-07-27 13:39 | XMS_ITS | Clinical Summary ---
Author Organization [employer] Address [address] [facility] [address] [place] [address] [address] Care [address] Light Servicer Name Role Phone Glo Delgadillo MD Primary Care Provider [phone] Allergies No known active allergies Medications Ventolin HFA 108 (90 Base) MCG/ACT inhaler INHALE TWO PUFFS FOUR TIMES DAILY NEEDED 06/19/19 22 Active Alcohol Swabs (Alcohol Prep) 70 % pads USE TWICE DAILY 06/19/19 22 Active aspirin 81 MG chewable tablet Chew 1 tablet at bed time. Active flecainide (Tambocor) 50 MG tablet Take 1 tablet by mouth 2 times daily. 03/14/20 22 Active Blood Glucose Monitoring Suppl (FreeStyle Lite) w/Device kitIndications:T ype 2 diabetes mellitus with hyperglycemia, unspecified whether keno terminal operator insulin use ([facility]) 1 Units 2 times daily. 1 unit to measure blood glucose BID and prn 1 kit 04/03/19 23 Active dilTIAZem (Cardizem) 30 MG immediate release tablet Take 1 tablet by mouth 2 times daily. 02/04/20 23 Active hydroCHLOROthiaz lavelle (Microzide) 12.5 MG capsule Take 1 capsule by mouth in the morning. 02/04/20 23 Active triamcinolone (Kenalog) 0.5 % ointment Apply topically 2 times daily. 90 g 05/15/19 24 Active loratadine (Claritin) 10 MG tablet Take 1 tablet (10 mg) by mouth Once per day. 30 tablet 08/14/19 24 Active ketoconazole (Nizoral) 2 % shampoo Apply topically 2 (two) times a week. 120 mL 2 08/25/19 24 Active Diclofenac Sodium 1 % gel Apply 5 g topically 4 times daily. 200 g 08/25/19 24 Active Lancets (OneTouch Delica Plus [id number]) miscIndications: Type 2 diabetes mellitus with hyperglycemia, without long-term current use of insulin ([facility]) TEST BLOOD SUGAR TWICE DAILY 100 each 11 08/29/19 24 Active OneTouch Ultra Test test stripIndications :Type 2 diabetes mellitus with hyperglycemia, without long-term current use of insulin ([facility]) TEST BLOOD SUGAR TWICE DAILY 100 strip 11 08/29/19 24 Active cholecalciferol VITAMIN D (Vitamin D-3) 50 MCG (1999) capsule TAKE ONE CAPSULE EVERY MORNING 90 capsule 3 01/12/20 24 Active Incruse Ellipta 62.5 MCG/ACT aerosol powderIndication s:Chronic obstructive pulmonary disease, unspecified COPD type ([facility]) INHALE 1 PUFF DAILY AT THE SAME TIME EACH DAY 30 each 5 02/17/20 24 Active fluticasone (Flonase) 50 MCG/ACT nasal sprayIndications :Chronic obstructive pulmonary disease, unspecified COPD type ([facility]) INHALE 2 SPRAYS IN EACH NOSTRIL ONCE DAILY 16 g 5 02/17/20 24 Active lisinopril 20 MG tablet TAKE ONE TABLET EVERY MORNING 30 tablet 5 02/17/20 24 Active buPROPion XL (Wellbutrin XL) 150 MG 24 hr tablet TAKE ONE TABLET EVERY MORNING 30 tablet 5 02/17/20 24 Active docusate sodium (Colace) 100 MG capsule TAKE ONE CAPSULE IN THE MORNING AND EVENING 60 capsule 5 02/17/20 24 Active Stimulant Laxative 8.6-50 MG tabletIndication s:Constipation, unspecified constipation type TAKE TWO TABLETS EVERY DAY AT BEDTIME 60 tablet 5 02/17/20 24 Active omeprazole (PriLOSEC) [address] capsule TAKE TWO CAPSULES EVERY MORNING 60 capsule 5 02/17/20 24 Active melatonin 5 MG tablet TAKE ONE TABLET EVERY NIGHT AT BEDTIME 90 tablet 1 04/16/19 25 Active metFORMIN (Glucophage) 500 MG tabletIndication s:Type 2 diabetes mellitus with hyperglycemia, unspecified whether keno terminal operator insulin use ([facility]) TAKE ONE TABLET IN THE MORNING AND EVENING WITH MEALS 180 tablet 05/06/19 25 Active LORazepam (Ativan) 0.5 MG tabletIndication s:Anxiety TAKE 1 TABLET THREE TIMES DAILY IN THE MORNING, AT NOON, AND AT BEDTIME NEEDED 84 tablet 07/10/19 25 Active polyethylene glycol, PEG, 3350 (Glycolax) 17 GM/SCOOP powderIndication s:Constipation, unspecified constipation type Take 17 g by mouth Once per day. 510 g 3 07/23/19 25 Active polyethylene glycol, PEG, 3350 (Glycolax) 17 GM/SCOOP powderIndication s:Constipation, unspecified constipation type STIR 17GM INTO 8 OUNCES OF WATER, OR JUICE, AND DRINK DAILY NEEDED / DIRECTED 510 g 2 10/22/19 23 025 Discontinued(R eorder (will not trigger notification to Pharmacy)) LORazepam (Ativan) 0.5 MG tabletIndication s:Anxiety TAKE ONE TABLET THREE TIMES DAILY IN THE MORNING, AT NOON, AND AT BEDTIME NEEDED 84 tablet 06/09/19 25 025 Discontinued [id number] Vac Recomb Adjuvanted 120 MCG/0.5ML reconstituted suspension Inject 0.5 mL into the muscle 1 (one) time for 1 dose. 1 each 07/23/19 25 025 Active Problems Problem Noted Date Diagnosed Date Anxiety 07/22/2024 Assessment & Plan (07/22/2024 12:31 PM EDT): Patient has been on chronic lorazepam therapy for an extended period. There are no reported concerns about misuse. However, given the patient's age and history of dementia, a gradual taper of lorazepam is being considered to minimize potential adverse effects associated with long-term benzodiazepine use in older adults. Plan: - Discuss potential benefits and risks of lorazepam taper with patient - If patient agrees to taper: - Initiate gradual lorazepam taper over 3 weeks: - Week 1: Reduce to twice daily dosing - Week 2: Reduce to once daily dosing - Week 3: Alternate day dosing, then discontinue - Coordinate with COT RN (Yi) for phone follow-up and support during taper - Monitor for withdrawal symptoms, increased anxiety, or changes in cognitive function Long-term current use of benzodiazepine 06/04/19 25 MCI (mild cognitive impairment) 12/03/2023 Decreased sensation of foot 08/25/2023 Assessment & Plan (08/25/2023 10:06 AM EDT): Foot Exam presented decreased sensation of foot. Referral to Reversal Print Inspector for further evaluation. Left arm pain 08/25/2023 Assessment & Plan (08/25/2023 10:07 AM EDT): Ordering XR of Left Shoulder for further evaluation of symptoms. Prescribing Diclofenac for relief of symptoms. 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 During examination noticed hard bumps he stated were itchy. I have prescribed Triamcinolone 0.5% ointment. Exercise counseling 05/15/2023 PAC (premature atrial contraction) 03/13/2023 Poor balance 10/29/2022 Assessment & Plan (07/22/2024 12:29 PM EDT): Patient reports walking sideways and experiencing frequent falls. Previous physical therapy interventions have resulted in minimal improvement. The gait instability appears to be chronic, with a possible left-sided weakness. No history of stroke was reported. The etiology of the gait instability is unclear, but given the patient's age and history of dementia, it may be multifactorial, potentially involving neurological and musculoskeletal components. Plan: - Order durable medical equipment: walker for home use to prevent falls - Refer to PM&R for gait and movement assessment - Educate patient on fall prevention strategies and importance of using assistive devices - Follow up to assess effectiveness of interventions and need for further evaluation Assessment & Plan (12/03/2023 10:31 AM EDT): Discussed with pt the importance of going to PT for disequilibrium and arthralgias. Referral to Physical Therapy. Assessment & Plan (08/25/2023 10:02 AM EDT): Advised to use cane for at home assistance. Assessment & Plan (10/29/2022 4:29 PM EDT): Patient with poor balance present for more thn 1 month. Will refer to physical therapy for further evaluation. Thoracic aortic aneurysm without rupture 023 Assessment & Plan (08/25/2023 10:01 AM EDT): Discussed medications and refills as needed. Hypertension 08/15/2022 Assessment & Plan (05/15/2023 3:29 PM EST): Controlled. Continue same treatment regimen. F/U in 6 months Assessment & Plan (03/13/2023 2:25 PM EST): Uncontrolled: was noticed that patient's blood pressure was elevated upon visit with readings of 146/77 mmHg. Due to Hx of syncope episodes, will not make nay changes with medications. Recommended to keep monitoring blood pressure at home, and bring readings upon next office visit. Will schedule follow up appointment in 1 month. Assessment & Plan (08/15/2022 11:46 AM EDT): Controlled. Continue current regimen. Chronic glossitis 08/15/2022 Assessment & Plan (08/15/2022 11:47 AM EDT): Patient with chrinic glossitis present for more than 6 months, With lesion on L side of toungue, white and discolored upon examination. Will refer to Maxillofacial Surgery. Residual hemorrhoidal skin tags 04/03/2022 Acute pain of left knee 04/03/2022 Assessment & Plan (04/18/2022 5:35 PM EST): DJD on X ray, trial of steroid, tolerated procedure well. Discussed reasons to rtc. F/u next scheduled appt. Assessment & Plan (04/03/2022 12:46 PM EST): Reviewed Xray, DJD, will trial steroid injection, will schedule appt. Type 2 diabetes mellitus with hyperglycemia 02/15 Assessment & Plan (07/22/2024 12:31 PM EDT): Patient's blood glucose was elevated at 236 mg/dL during the visit, which the patient attributes to recent dietary intake. HbA1c is 5.5%, indicating overall good glycemic control over the past 3 months. Patient reports recent higher glucose readings and acknowledges the need for dietary adjustments. Plan: - Reinforce importance of dietary management - Order comprehensive metabolic panel and lipid panel - Follow up on laboratory results - Adjust diabetes management plan based on lab results if necessary Assessment & Plan (12/03/2023 10:34 AM EDT): Controlled. A1c is at goal. Continue on current medications. Assessment & Plan (08/25/2023 10:05 AM EDT): Continue current medications, f/u in 6 months. Assessment & Plan (05/15/2023 3:28 PM EST): Controlled. Continue current regimen. F/U in 6 months. Labs: Glucose, HGB A1C Assessment & Plan (10/29/2022 4:30 PM EDT): Controlled. Continue current regimen, will follow up in 6 months.Patient with decreased sensation in bilateral feet. Would benefit from referral to podiatry for further evaluation. Referral placed. Assessment & Plan (08/15/2022 11:45 AM EDT): Controlled. Continue current regimen. Encouraged diet modifications. Assessment & Plan (04/03/2022 12:47 PM EST): Elevated POC glucose and reports he eats cake for breakfast on a daily basis, recommended diet modification, incr metformin to 500 mg BID and sent glucose monitor, will recheck in 6-8 weeks and assess control. Labs sent Malignant tumor of prostate 07/19/2021 Tremor 04/06/2015 Seborrheic dermatitis 04/06/2015 Assessment & Plan (08/25/2023 10:05 AM EDT): Visible Dermatitis, prescribing Nizoral for treatment of symptoms. Relevant Medications Ketoconazole (Nizoral) 2% shampoo. Assessment & Plan (10/29/2022 4:45 PM EDT): Concerns of scalp itchiness. Will send derma-soothe 0.01% oil and ketoconazole 2% shampoo for symptoms relief. Palpitations 04/06/2015 Overview (08/15/2022): PAC Overweight 04/06/2015 Hemospermia 04/06/2015 Gastroesophageal reflux disease without esophagi tis 04/06/2015 Depressive disorder 04/06/2015 Chronic obstructive lung disease 04/06/2015 Constipation 04/06/2015 Assessment & Plan (04/03/2022 12:46 PM EST): Will trial miralax and senokot-S. Recommended lifestyle modification. Benign prostatic hyperplasia without lower urinary tract symptoms 04/06/2015 Allergic rhinitis 04/06/2015 Encounters Date Type Department Care Team Description 07/22/2024 11:15 AM EDT Office Visit [facility] [address] [place] [address] Glo Delgadillo MD Type 2 diabetes mellitus with hyperglycemia, unspecified whether [place] use ([facility]) (Primary Dx); Constipation, unspecified constipation type; Poor balance; Anxiety 07/22/2024 Telephone [facility] [address] [place] [address] Glo Delgadillo MD 07/22/2024 Travel 07/15/2024 Patient Outreach [facility] [address] [place] [address] Glo Delgadillo MD Pre-visit Planning (Pre visit planning LVM ) 07/14/2024 10:30 AM EDT Clinical Support [facility] [address] [place] [address] Yi Burgess RN Anxiety 07/14/2024 Travel 07/06/2024 Refill [facility] [address] [place] [address] Michelle Holland MD Anxiety 06/17/2024 Telephone [facility] [address] [place] [address] Glo Delgadilol MD Request of transfer appointment 06/08/2024 Refill [facility] [address] [place] [address] Michelle Holland MD Anxiety 06/03/2024 2:00 PM EDT Clinical Support [facility] [address] [place] [address] Yi Burgess RN Anxiety (Primary Dx); Long-term current use of benzodiazepine 06/03/2024 Travel 05/11/2024 Refill [facility] [address] [place] [address] Leodan Yap MD Anxiety 05/06/2024 Refill [facility] [address] [place] [address] Glo Delgadillo MD Type 2 diabetes mellitus with hyperglycemia, unspecified whether [facility] insulin use ([facility]) 05/04/2024 2:00 PM EST Clinical Support [facility] [address] [place] [address] Yi Burgess RN Anxiety 05/04/2024 Travel from Last 3 Months Immunizations Name Administration Dates Next Due Hep B, adult 09/02/2017,04/25/2017,03/27/2017 Influenza High-dose Quadriva lent Preservative Free 12/13/2021,12/18/2020 Influenza injectable quadriv alent IIV4 with preservative 01/30/2017,02/15/2016,12/02/2014 Influenza injectable quadriv alent preservative free 05/15/2023 Influenza, High Dose Seasona l, Preservative Free 12/03/2023,02/02/2019,12/01/2017 Influenza, IIV3, injectable 12/11/2010 Influenza, Split (incl. mayuri fied surface antigen) 12/09/2012,11/25/2011 Moderna Covid-19 Vaccine 12+ 03/28/2021,06/23/19,05/25/2020 Pneumococcal Conjugate PCV 13 04/06/2015 Pneumococcal Polysaccharide PPSV23 05/10/2013 RSV Bivalent 07/22/2024 TD (adult), 2 Lf tetanus tox oid, preservative free, adsorbed 12/05/1998 Tdap 05/15/2023,06/16/2012 Zoster, Recombinant 09/28/2019,05/10/2019 Zoster, live 04/06/2015 Family History Medical History Relation Name Comments Asthma Father Asthma Mother Cancer Mother Cancer Sister Diabetes Sister Relation Name Status Comments Father Mother Sister Social History Tobacco Use Types Packs/Day Years Used Date Smoking Tobacco: Former Cigarettes Passive Smoke Exposure: Never Smokeless Tobacco: Never Tobacco Cessation:Counseling Given: Not Answered Comments:Last cig use was 30 yrs ago, [...] Orientation Straight 01/14/2022 10 :14 AM EDT Last Filed Vital Signs Vital Sign Reading Time Taken Comments Blood Pressure 134/66 03/24/2024 11:18 AM EST Pulse 52 03/24/2024 11:18 AM EST Temperature 36 ??C (96.8 ??F) 03/24/2024 11:18 AM EST Respiratory Rate 12 03/24/2024 11:18 AM EST Oxygen Saturation 98% 03/24/2024 11:18 AM EST Inhaled Oxygen Concentration - - Weight 70.8 kg (156 lb) 03/24/2024 11:18 AM EST Height 169 cm (5' 6.54 ) 03/24/2024 11:18 AM EST Body Mass Index 24.77 03/24/2024 11:18 AM EST Plan of Treatment Upcoming Encounters Date Type Department Care Team (Late st Contact Info) Description 09/23/2024 1:30 PM EDT Clinical Support [facility] [address], [place] [phone] Yi Burgess, LISA [address] [place], [place] [phone] 09/30/2024 1:45 PM EDT Office Visit [facility] [address] [place] [address] Heavenly Walters MD [address], [place] [phone] Health Maintenance Due Date Last Done Comments Diabetes: Urine Protein Screening 10/31/2023 10/30/2022, 05/29/2021, 06/13/2020 COVID-19 Vaccine ( season) 2024 03/28/2021, 06/22/2020, 05/25/2020 Postponed from 11/16/2023 (Supply/Drug Shortage) Diabetes: Foot Exam 08/24/2024 08/25/2023, 08/25/2023, 08/25/2023, Additional history exists Lipid Panel 08/28/2024 08/29/2023, 10/15, 04/03/2022, Additional history exists Diabetes: Hemoglobin A1C 01/22/2025 05 025, 03/24/2024, 12/03/2023, Additional history exists Alcohol/Substance Use Screening 07/22/2025 07/22/2024 Depression Screening 07/22/2025 07/22/2024, 07/23/19 SDOH Screening 07/22/2025 07/22/2024 Tobacco Screening 07/22/2025 07/22/2024 Eye Exam 12/01/2025 12/02/2023, 11/15, 12/02/2023, Additional history exists DTaP/Tdap/Td Vaccines (3 - Td or Tdap) 05/14/2033 05/15/2023, 06/16/2012, 12/05/1998 Pneumococcal Vaccine: 50+ Years Completed 04/06/2015, 05/10/2013 Hepatitis B Vaccines Completed 09/02/2017, 04/25/2017, 03/27/2017 Zoster Vaccines Completed 09/28/2019, 04/18, 04/06/2015 Hepatitis C Screening Completed 08/29/2023 Influenza Vaccine Completed 12/03/2023, , 12/13/2021, Additional history exists RSV Patients and Patients Aged 60 years or older Completed 07/22/2024 HIB Vaccines Aged Out No longer eligi ble based on patient's age to complete this topic HPV Vaccines Aged Out No longer eligi ble based on patient's age to complete this topic Hepatitis A Vaccines Aged Out No long er eligible based on patient's age to complete this topic IPV Vaccines Aged Out No longer eligi ble based on patient's age to complete this topic Meningococcal Vaccine Aged Out No onesimo keiry eligible based on patient's age to complete this topic RSV under 20 months Aged Out No longe r eligible based on patient's age to complete this topic Rotavirus Vaccines Aged Out No longer eligible based on patient's age to complete this topic Procedures Procedure Name Priority Date/Time Associated Diagnosis Comments POCT GLYCATED HEMOGLOBIN, TOTAL Routine 07/22/2024 11:23 AM EDT Type 2 diabetes mellitus with hyperglycemia, unspecified whether [place] [facility] insulin use ([facility]) POCT GLUCOSE Routine 07/22/2024 11:23 AM EDT Type 2 diabetes mellitus with hyperglycemia, unspecified whether keno terminal operator insulin use ([facility]) POCT SHERRY-14 URINE DRUG SCREEN Routine 07/14/2024 11:09 AM EDT Anxiety POCT SHERRY-14 URINE DRUG SCREEN Routine 06/03/2024 2:20 PM EDT Long-term current use of benzodiazepine Anxiety POCT SHERRY-14 URINE DRUG SCREEN Routine 05/04/2024 2:23 PM EST Anxiety HEPATITIS C AB W/REFL TO HCV RNA, QN, PCR Routine 08/29/2023 2:28 PM EDT Type 2 diabetes mellitus with hyperglycemia, unspecified whether [facility] insulin use (CMS/HCC) LIPID PANEL, STANDARD Routine 08/29/2023 2:28 PM EDT Type 2 diabetes mellitus with hyperglycemia, unspecified whether keno terminal operator insulin use (CMS/HCC) ALBUMIN, RANDOM URINE W/CREATININE Routine 10/30/2022 12:05 PM EDT Type 2 diabetes mellitus with hyperglycemia, unspecified whether [place] insulin use (CMS/HCC) HP LINK DIABETIC FOOT EXAM Routine 10/29/2022 from Last 3 Months or Most Recently Relevant to Health Maintenance Results * POCT HGB A1C (07/22/2024 11:23 AM EDT) Hemoglobin A1C 5.5 4.0 - 6.0 % QC Media Lot # [id number] Lot# Expiration Date [id number] Blood 07/22/2024 11:2 3 AM EDT Glo Delgadillo MD POINT OF CARE TEST ENTER/EDIT ORDERABLES Final Result * (ABNORMAL) POCT Glucose (07/22/2024 11:23 AM EDT) Glucose Blood, POC 236(A) 60 - 200 mg/dL QC Media Lot # [id number] Lot# Expiration Date [id number] Blood Capillary blood specimen / Unknown 07/22/2024 11:23 AM EDT us Glo Delgadillo MD POINT OF CARE TEST ENTER/EDIT ORDERABLES Final Result * POCT SHERRY-14 Urine Drug Screen (07/14/2024 11:09 AM EDT) Only the most recent of3 resultswithin the time period is included. Pathologist [facility] Benzodiazepines Screen, Urine Positive Urine Urine specimen obtained by clean catch procedure / Unknown 07/14/2024 11:09 AM EDT Narrative Yi Burgess RN - 07/14/2024 11:09 AM EDT Lot# [id number] Exp: 11-03-25 Glo Delgadillo MD POINT OF CARE TEST ENTER/EDIT ORDERABLES Final Result * Hepatitis C Antibody with Reflex to HCV, RNA, Quantitative, Real-Time PCR (08/29/2023 2:28 PM EDT) Pathologist [facility] Hepatitis C Antibody Nonreactive Nonreactive [facility] Comment:Antibodies to HCV no t detected; does not exclude early acuteHCV infection. Blood Venous blood specimen / Unknown 08/29/2023 2:28 PM EDT 08/29/2023 2:28 PM EDT Glo Delgadillo MD LAB BLOOD ORDERABLES Final Re sult [facility] [address] [place] [phone] * (ABNORMAL) Lipid Panel, Standard (08/29/2023 2:28 PM EDT) Pathologist [facility] [place] Triglycerides 137 <150 mg/dL [facility] Comment:Desirable Triglyceri de: less than 150 mg/dLBorderline High Triglyceride 150-199 mg/dLHigh Triglyceride: 200-499 mg/dLVery High Triglyceride: greater than or equal to 5OO mg/dL Cholesterol 163 <200 mg/dL [facility] Comment:Desirable Cholestero l: less than 200 mg/dLBorderline High Cholesterol: 200-239 mg/dLHigh Cholesterol: greater than 239 mg/dL LDL Cholesterol Calculated 106(H) <100 mg/dL [facility] Comment:Desirable LDL: less than 100 mg/dLNear Optimal/Above Optimal LDL: 110- 129 mg/dLBorderline High LDL: 130-159 mg/dLHigh LDL: 160-189 mg/dLVery High LDL: greater than or equal to 190 mg/dL HDL Cholesterol 30(L) >40 mg/dL [facility] Comment:Desirable HDL: great er than 40 mg/dL Note: This HDL assay may give artificially low results in patients with liver disease. Blood Venous blood specimen / Unknown 08/29/2023 2:28 PM EDT 08/29/2023 2:28 PM EDT us Glo Delgadillo MD LAB BLOOD ORDERABLES Final Re sult Performing Organization Address [facility] Co de Phone Number [facility] [address] [place] [address] [phone] * Albumin, Random Urine W/Creatinine (10/30/2022 12:05 PM EDT) Creatinine, Urine 168.20 mg/dL [facility] Microalbumin Urine 18.0 mg/L [facility] Microalbum Creatinine Ratio Ur 10.7 ug/mg cr [facility] Comment:Albumin/Creatinine R atio Reference Ranges: Normal: < 30 ug/mg creatinine Microalbuminuria: 30 - 300 ug/mg creatinineClinical Albuminuria: > 300 ug/mg creatinine Urine (Urine, Random) 10/30/2022 12:05 PM EDT 10/30/2022 5:34 PM EDT us Glo Delgadillo MD LAB URINE ORDERABLES Final Re sult Performing Organization Address [facility]/ZIP Co de Phone Number [facility] [address] [place] [address] [phone] * (ABNORMAL) HP Diabetic Foot Exam (10/29/2022) us Glo Delgadillo MD HEALTH MAINTENANCE Final Resu lt from Last 3 Months or Most Recently Relevant to Health Maintenance Insurance [facility] OPT[employer] (HMO D-SNP) Care Teams Street Light Servicer Relationship Specialty Start Date End Date Glo Delgadillo MD [address] [place] [address] PCP - General Family Medicine 12/18/20 09/29/24 [address] Gilli[address], [address], [place] [address] Consulting Physician Urology 03/13/23
--- OUTSIDE RECORDS SUMMARY | 2024-07-27 13:39 | XMS_ITS | Encounter Summary ---
Author Organization [employer] Address [address] [place] [address] 7 [place] [address] Care Team Providers Care Painting Contractor Name Role Phone Glo Delgadillo MD Primary Care Provider [phone] Reason for Visit * Reason Comments Med Refill Encounter Details Date Type Department Care Team ([facility] Contact Info) Description 11/21/2022 Refill [facility] MED & PEDS [address] [place] [address] Michelle Holland MD [address] [place] [address] Anxiety Social History Tobacco Use Types Packs/Day Years Used Date Smoking Tobacco: Former Cigarettes Passive Smoke Exposure: Never Smokeless Tobacco: Never Comments:Last cig use was 30 yrs ago, vague in terms of timing Alcohol Use Standard Drinks/Week Comments Never 0 (1 standard drink = 0.6 oz pur e alcohol) Depression Answer Date Recorded Patient Health Questionnaire-9 Score 1 04/18/2022 Depression Answer Date Recorded Patient Health Questionnaire-2 Score 0 04/18/2022 Sex and Gender Information Value Date Recorded Sex Assigned at Male 01/14/2022 10:14 AM EDT Legal Sex Male 10:14 AM EDT Gender Identity Male 01/14/2022 10:14 AM EDT Sexual Orientation Straight 01/14/2022 10 :14 AM EDT documented as of this encounter Plan of Treatment Upcoming Encounters Date Type Department Care Team ([facility] Contact Info) Description 09/23/2024 1:30 PM EDT Clinical Support [facility] MED & PEDS [address] [place] [address] Yi Buregss RN [address] [place] [address] 09/30/2024 1:45 PM EDT Office Visit [facility] MEDICINE [address] [place] [address] Heavenly Walters MD [address] [place] [address] documented as of this encounter Visit Diagnoses Diagnosis Anxiety Anxiety state, unspecified documented in this encounter Additional Health Concerns Assessment Noted Time PHQ-9 Depression Total Score: 1 04/18/19 23 3:01 PM EST documented as of this encounter Care Teams Painting Contractor Relationship Specialty Start Date End Date Glo Delgadillo MD [address] [place] [id number] PCP - General Family Medicine 12/18/20 09/29/24 Blank 100 Reshma Gilliam, [facility] [address], [place] [address] Consulting Physician Urology 03/13/23 documented as of this encounter
--- OUTSIDE RECORDS SUMMARY | 2024-07-27 13:39 | XMS_ITS | Encounter Summary ---
Author Organization [employer] Address [address] [facility] 7t [place] [address] Care Team Providers Care Automotive Repair Technician Name Role Phone Glo Delgadillo MD Primary Care Provider [phone] Reason for Referral * Consultation (Routine) - Authorized Specialty Diagnoses / Procedures Referred By Contact Referred To Contact Physical Medicine and Rehabilitation Diagnoses Poor balance Glo Delgadillo MD [address] [place] [address] Phone: tel: fax: [facility] [address] [place] [address] Phone: tel: fax: Referral ID Status Reason Start Date Expiration Date Visits Requested Visits Authorized [id number] Authorized Specialty Services Required 07/22/2024 07/22/2025 1 1 Reason for Visit * Reason Comments Abnormal gait Constipation Diabetes Encounter Details Date Type Department Care Team (Late st Contact Info) Description 07/22/2024 11:15 AM EDT Office Visit [facility] CHC MED & PEDS [address] [place] [address] Glo Delgadillo MD [address] [place], [place] [id number] Type 2 diabetes mellitus with hyperglycemia, unspecified whether senior living insulin use (CMS/[facility]) (Primary Dx); Constipation, unspecified constipation type; Poor balance; Anxiety Social History Tobacco Use Types Packs/Day [...] AM EDT documented as of this encounter Progress Notes * Glo Delgadillo MD - 07/22/2024 11:15 AM EDT Subjective Patient ID: Washington Key is a 79 y.o. male who presents for Abnormal gait, Constipation, and Diabetes. [place] Key, a 79-year-old man with a history of dementia, presents with concerns about gait instability and falls. He reports walking sideways and occasionally falling, which has been causing himsignificant worry. Mr. Almodovar describes difficulty with balance and walking, stating I don't walk well. I walk sideways and sometimes fall. He expresses anxiety about potential falls or injuries, saying Sometimes I don't want to fall or get hit by something. The patient indicates that these symptoms have been ongoing for some time, with minimal improvement despite previous physical therapy. He mentions specifically that the left side feels weak, though he denies any history of stroke. The patient's gait instability is impacting his daily functioning and causing emotional distress. He expresses reluctance to use assistive devices such as a walker, despite the recommendation. Mr. Almodovar also reports constipation, mentioning that he has run out of MiraLax, which he had been usingpreviously. Regarding his medications, Mr. Almodovar is currently taking lorazepam and expresses interest in potentially weaning off this medication. He has been using it for many years and is unsure about whether to continue or taper off. The patient also mentions that his blood sugar levels have been higher recently, acknowledging the need to adjust his diet. Review of Systems Constitutional: Negative for appetite change, fatigue and fever. HENT: Negative for congestion, postnasal drip and rhinorrhea. Eyes: Negative for discharge and redness. Respiratory: Negative for apnea, cough, chest tightness and shortness of breath. Cardiovascular: Negative for chest pain. Gastrointestinal: Negative for abdominal pain. Endocrine: Negative for polyphagia. Genitourinary: Negative for difficulty urinating, dysuria and urgency. Musculoskeletal: Negative for arthralgias. Neurological: Negative for dizziness, light-headedness, numbness and headaches. Hematological: Negative for adenopathy. Does not bruise/bleed easily. Objective Visit Vitals Smoking Status Former Physical Exam Constitutional: General: He is not in acute distress. Appearance: He is not ill-appearing. HENT: Head: Normocephalic and atraumatic. Nose: No congestion. Pulmonary: Effort: Pulmonary effort is normal. No respiratory distress. Breath sounds: Normal breath sounds. Musculoskeletal: Cervical back: Normal range of motion. Neurological: General: No focal deficit present. Mental Status: He is alert. Gait: Gait abnormal. Assessment/Plan Problem List Items Addressed This Visit Type 2 diabetes mellitus with hyperglycemia ([facility]) - Primary Patient's blood glucose was elevated at 236 mg/dL during the visit, which the patient attributes torecent dietary intake. HbA1c is 5.5%, indicating overall good glycemic control over the past 3 months. Patient reports recent higher glucose readings and acknowledges the need for dietary adjustments. Plan: - Reinforce importance of dietary management - Order comprehensive metabolic panel and lipid panel - Follow up on laboratory results - Adjust diabetes management plan based on lab results if necessary Relevant Orders POCT Glucose (Completed) POCT HGB A1C (Completed) CBC auto differential Comprehensive Metabolic Panel Lipid Panel, Standard Albumin, Random Urine W/Creatinine TSH W/Reflex to FT4 Vitamin B12 (Cobalamin) and Folate Panel, Serum Constipation Relevant Medications polyethylene glycol, PEG, 3350 (Glycolax) 17 GM/SCOOP powder Poor balance Patient reports walking sideways and experiencing frequent falls. Previous physical therapy interventions have resulted in minimal improvement. The gait instability appears to be chronic, with a possible left-sided weakness. No history of stroke was reported. The etiology of the gait instability isunclear, but given the patient's age and history of dementia, it may be multifactorial, potentiallyinvolving neurological and musculoskeletal components. Plan: - Order durable medical equipment: walker for home use to prevent falls - Refer to PM&R for gait and movement assessment - Educate patient on fall prevention strategies and importance of using assistive devices - Follow up to assess effectiveness of interventions and need for further evaluation Relevant Orders Referral to Physiatry Anxiety Patient has been on chronic lorazepam therapy [...] increased anxiety, or changes in cognitive function Patient???s clinical findings support the need for a walker given the patient has a mobility limitation that significantly impairs his ability to participate in one or more mobility-related activities of daily living (MRADL). Patient has a constant need for weight bearing and will benefit from a standard walker. Medical condition: Weight: Wt Readings from Last 2 Encounters: 03/24/24 156 lb (70.8 kg) 12/03/23 160 lb 9.6 oz (72.8 kg) Patient needs a walker to perform MRADL???s and the functional mobility deficit cannot be sufficiently resolved by use of a cane or crutches, given he will need assistance of both upper extremities for balance. The patient is willing to use a walker and the functional mobility deficit can be improved with the use of this device. documented in this encounter Miscellaneous Notes * Assessment & Plan Note - Gol Delgadillo MD - 07/22/2024 12:31 PM EDT Associated Problem(s): Type 2 diabetes mellitus with hyperglycemia (CMS/HCC) Patient's blood glucose was elevated at 236 mg/dL during the visit, which the patient attributes torecent dietary intake. HbA1c is 5.5%, indicating overall good glycemic control over the past 3 months. Patient reports recent higher glucose readings and acknowledges the need for dietary adjustments. Plan: - Reinforce importance of dietary management - Order comprehensive metabolic panel and lipid panel - Follow up on laboratory results - Adjust diabetes management plan based on lab results if necessary * Assessment & Plan Note - Glo Delgadillo MD - 07/22/2024 12:31 PM EDT Associated Problem(s): Anxiety Patient has been on chronic lorazepam therapy [...] then discontinue - Coordinate with COT RN Nasir) for phone follow-up and support during taper - Monitor for withdrawal symptoms, increased anxiety, or changes in cognitive function * Assessment & Plan Note - Glo Delgadillo MD - 07/22/2024 12:29 PM EDT Associated Problem(s): Poor balance Patient reports walking sideways and experiencing frequent falls. Previous physical therapy interventions have resulted in minimal improvement. The gait instability appears to be chronic, with a possible left-sided weakness. No history of stroke was reported. The etiology of the gait instability isunclear, but given the patient's age and history of dementia, it may be multifactorial, potentiallyinvolving neurological and musculoskeletal components. Plan: - Order durable medical equipment: walker for home use to prevent falls - Refer to PM&R for gait and movement assessment - Educate patient on fall prevention strategies and importance of using assistive devices - Follow up to assess effectiveness of interventions and need for further evaluation documented in this encounter Plan of Treatment Upcoming Encounters Date Type Department Care Team (Late st Contact Info) Description 09/23/2024 1:30 PM EDT Clinical Support [facility] CHC MED & PEDS [address] [place] [address] Yi Burgess, LISA [address] [place] [address] 09/30/2024 1:45 PM EDT Office Visit [facility] MEDICINE [address] [place] [address] Heavenly Walters MD [address] [place] [address] Scheduled Orders Name Type Priority Associated Diagnoses Orde r Schedule CBC auto differential Lab Routine Type 2 diabetes mellitus with hyperglycemia, unspecified whether termite control technician insulin use ([facility]) Expected: 07/22/2024 (Approximate), Expires: 07/22/2025 Comprehensive Metabolic Panel Lab Routine Type 2 diabetes mellitus with hyperglycemia, unspecified whether termite control technician insulin use (CMS/HCC) Expected: 07/22/2024 (Approximate), Expires: 07/22/2025 Lipid Panel, Standard Lab Routine Type 2 diabetes mellitus with hyperglycemia, unspecified whether termite control technician insulin use ([facility]) Expected: 07/22/2024 (Approximate), Expires: 07/22/2025 Albumin, Random Urine W/Creatinine Lab Routine Type 2 diabetes mellitus with hyperglycemia, unspecified whether termite control technician insulin use ([facility]) Expected: 07/22/2024 (Approximate), Expires: 07/22/2025 TSH W/Reflex to FT4 Lab Routine Type 2 diabetes mellitus with hyperglycemia, unspecified whether senior living insulin use ([facility]) Expected: 07/22/2024 (Approximate), Expires: 07/22/2025 Vitamin B12 (Cobalamin) and Folate Panel, Serum Lab Routine Type 2 diabetes mellitus with hyperglycemia, unspecified whether senior living insulin use ([facility]) Expected: 07/22/2024 (Approximate), Expires: 07/22/2025 Scheduled Referrals Name Type Priority Associated Diagnoses Orde r Schedule Referral to Physiatry Outpatient Referral Routine Poor balance Expected: 07/22/2024 (Approximate), Expires: 07/22/2025 documented as of this encounter Procedures Procedure Name Priority Date/Time Associated Diagnosis Comments POCT GLYCATED HEMOGLOBIN, TOTAL Routine 07/22/2024 11:23 AM EDT Type 2 diabetes mellitus with hyperglycemia, unspecified whether senior living insulin use ([facility]) POCT GLUCOSE Routine 07/22/2024 11:23 AM EDT Type 2 diabetes mellitus with hyperglycemia, unspecified whether termite control technician insulin use ([facility]) documented in this encounter Results * POCT HGB A1C (07/22/2024 11:23 AM EDT) Hemoglobin A1C 5.5 4.0 - 6.0 % QC Media Lot # [id number] Lot# Expiration Date 122, Blood 07/22/2024 11:2 3 AM EDT Glo Delgadillo MD POINT OF CARE TEST ENTER/EDIT ORDERABLES Final Result * (ABNORMAL) POCT Glucose (07/22/2024 11:23 AM EDT) Glucose Blood, POC 236(A) 60 - 200 mg/dL QC Media Lot # [id number] Lot# Expiration Date Blood Capillary blood specimen / Unknown 07/22/2024 11:23 AM EDT Glo Delgadillo MD POINT OF CARE TEST ENTER/EDIT ORDERABLES Final Result documented in this encounter Visit Diagnoses Diagnosis Type 2 diabetes mellitus with hyperglycemia, unspecified whether senior living insulin use ([facility])- Primary Constipation, unspecified constipation type Poor balance Anxiety Anxiety state, unspecified documented in this encounter Additional Health Concerns Assessment Noted Time PHQ-9 Depression Total Score: 3 07/23/19 25 11:02 AM EDT documented as of this encounter Care Teams Automotive Repair Technician Relationship Specialty Start Date End Date Glo Delgadillo MD [address] [place] [address] PCP - General Family Medicine 12/18/20 09/29/24 Blank 100 Reshma Gilliam, [facility] [address], [place] [address] Consulting Physician Urology 03/13/23 documented as of this encounter
--- OUTSIDE RECORDS SUMMARY | 2024-07-27 13:39 | XMS_ITS | Encounter Summary ---
Author Organization [employer] Address [address] [place] [address] Care Team Providers Care Laboratory Clerk Name Role Phone Glo Delgadillo MD Primary Care Provider [phone] Reason for Visit * Reason Onset Date Comments Request of transfer appointment 06/17/2024 Encounter Details Date Type Department Care Team ([facility] st Contact Info) Description 06/17/2024 Telephone [facility] CHC MED & PEDS [address] [place], [place] [phone] Glo Delgadillo MD [address] [place] [address] Request of transfer appointment Social History Tobacco Use Types Packs/Day Years [...] your housing situation today? I have alondra sing 07/22/[address] you li [...] encounter Miscellaneous Notes * Telephone Encounter - Nell Lundy RN - 07/22/2024 11:58 AM EDT Pt with chronic conditions needing to transfer to [facility] due to location. TP given to pt with Dr Hernandez September. * Telephone Encounter - Rolo Redmond - 06/17/2024 10:13 AM EDT Pt walked in stating he would like to transfer to [facility] since it's easier access due to address change. documented in this encounter Plan of Treatment Upcoming Encounters Date Type Department Care Team (Late st Contact Info) Description 09/23/2024 1:30 PM EDT Clinical Support [facility] CHC MED & PEDS [address] [place] [address] Yi Burgess, LISA [address] [place] [address] 09/30/2024 1:45 PM EDT Office Visit [facility] MEDICINE [address] [place] [address] Heavenly Walters MD [address] [place] [address] documented as of this encounter Visit Diagnoses Not on filedocumented in this encounter Additional Health Concerns Assessment Noted Time PHQ-9 Depression Total Score: 3 05/15/19 24 3:05 PM EST documented as of this encounter Care Teams Laboratory Clerk Relationship Specialty Start Date End Date Glo Delgadillo MD [address] [place] [address] PCP - General Family Medicine 12/18/20 09/29/24 Blank 100 Reshma Gilliam [facility] [address], [place] [address] Consulting Physician Urology 03/13/23 documented as of this encounter
--- OUTSIDE RECORDS SUMMARY | 2024-07-27 13:39 | XMS_ITS | Encounter Summary ---
Author Organization [employer] Address [address] 7[address] [place] [address] Care Team Providers Care Housing Management Representative Name Role Phone Glo Delgadillo MD Primary Care Provider [phone] Encounter Details Date Type Department Care Team (Latest Contact Info) Description 07/22/2024 Travel Social History Tobacco Use Types Packs/Day Years [...] Description 09/23/2024 1:30 PM EDT Clinical Support [facility] CHC MED & PEDS [address] [place], [place] [phone] Yi Burgess, LISA [address] [place] [address] 09/30/2024 1:45 PM EDT Office Visit [facility] MEDICINE [address] [place] [address] Heavenly Walters MD [address] [place] [address] documented as of this encounter Visit Diagnoses Not on filedocumented in this encounter Additional Health Concerns Assessment Noted Time PHQ-9 Depression Total Score: 3 07/23/19 25 11:02 AM EDT documented as of this encounter Care Teams Housing Management Representative Relationship Specialty Start Date End Date Glo Delgadillo MD [address] [place] [address] PCP - General Family Medicine 12/18/20 09/29/24 Blank 100 Reshma Gilliam, [address], [place] [address] Consulting Physician Urology 03/13/23 documented as of this encounter
== END ==
LOC: HO.CARD 12:32
PROVIDERS: PCP Family Medicine; Visit Provider Internal Medicine Cardiovascular Disease
DX: I71.20 Thoracic aortic aneurysm, without rupture, unspecified (principal)
CPT/HCPCS: 93306

== ENCOUNTER → 2024-07-27 12:37 | Outpatient (BNV) | payer OTHER, SELFPAY | PROVIDERS: PCP Family Medicine; Visit Provider Internal Medicine Cardiovascular Disease | DX: I35.0 Nonrheumatic aortic (valve) stenosis (principal); I34.0 Nonrheumatic mitral (valve) insufficiency | CPT/HCPCS: 93306 ==

== ENCOUNTER 2024-07-29 11:31 | Outpatient (REF) | payer OTHER, SELFPAY ==
[2024-07-29 12:15] LABS: Basophils Percent Auto 0.7 % (0-2); Eosinophils Absolute Auto 0.1 X10*3/uL (0.0-0.4); Eosinophils Percent Auto 2.5 % (0-4); Hematocrit 35.7 % (42.0-52.0); Hemoglobin 11.7 g/dl (14.0-18.0); Imm Gran Abs Auto 0.01 X10*3/uL (0.00-0.03); Imm Gran Pct Auto 0.2 % (0.0-0.4); Lymphocytes Absolute Auto 1.3 X10*3/uL (1.2-4.9); Lymphocytes Percent Auto 31.2 % (20-40); MANUAL DIFF FLAG SCAN; Mean Corpuscular HGB Conc 32.8 g/dl (31.0-36.0); Mean Corpuscular Hemoglobin 29.8 pg (27.0-33.0); Mean Corpuscular Volume 90.8 fL (80.0-98.0); Mean Platelet Volume 9.4 fL (9.4-12.4); Monocytes Absolute Auto 0.3 X10*3/uL (0.1-1.2); Monocytes Percent Auto 8.2 % (2-11); Neutrophils Absolute Auto 2.3 x10*3/uL (2.0-8.3); Neutrophils Percent Auto 57.2 % (45-73); Platelet Count 201 X10*3/uL (160-400); Red Blood Count 3.93 X10*6/uL (4.60-5.80); Red Cell Distribution Width 12.2 % (11.0-16.0); SCAN SMEAR FLAG 1
--- OUTSIDE RECORDS SUMMARY | 2024-07-29 12:38 | XMS_ITS | Encounter Summary ---
Author Organization [employer] Address [address] [place] [address] Care Team Providers Care Leather Dresser Name Role Phone Glo Delgadillo MD Primary Care Provider [phone] Reason for Visit * Reason Comments Med Refill Encounter Details Date Type Department Care Team ([facility] Contact Info) Description 07/29/[address] [facility] CHC MED & PEDS [address] [place], [place] [phone] Glo Delgadillo MD [address] [place], [place] [phone] Constipation, unspecified constipation type Social History Tobacco Use Types Packs/Day Years [...] Description 09/23/2024 1:30 PM EDT Clinical Support [facility] CHC MED & PEDS [address] [place] [address] Yi Burgess, LISA [address] [place] [address] 09/30/2024 1:45 PM EDT Office Visit [facility] MEDICINE [address] [place] [address] Heavenly Walters MD [address] [place] [address] documented as of this encounter Visit Diagnoses Diagnosis Constipation, unspecified constipation type documented in this encounter Additional Health Concerns Assessment Noted Time PHQ-9 Depression Total Score: 3 07/23/19 25 11:02 AM EDT documented as of this encounter Care Teams Leather Dresser Relationship Specialty Start Date End Date Glo Delgadillo MD [address] [place] [address] PCP - General Family Medicine 12/18/20 09/29/24 Blank 100 Reshma Gilliam, [address], [place] [address] Consulting Physician Urology 03/13/23 documented as of this encounter
--- OUTSIDE RECORDS SUMMARY | 2024-07-29 12:38 | XMS_ITS | Clinical Summary ---
Author Organization [employer] Address [address] [facility] 7[address] [place] [address] Care Team Providers Care Associate Principal Name Role Phone Glo Delgadillo MD Primary Care Provider [phone] Allergies No known active allergies Medications Ventolin [...] 2 diabetes mellitus with hyperglycemia, unspecified whether terminal system operator insulin use ([facility]) 1 Units 2 times daily. 1 unit [...] 08/25/19 24 Active Lancets (OneTouch Delica Plus [id number]) miscIndications: Type 2 diabetes mellitus with hyperglycemia, without long-term current use of insulin ([facility]) TEST BLOOD SUGAR TWICE DAILY 100 each 11 08/29/19 24 Active OneTouch Ultra Test test stripIndications :Type 2 diabetes mellitus with hyperglycemia, without long-term current use of insulin ([facility]) TEST BLOOD SUGAR TWICE DAILY 100 strip 11 08/29/19 24 Active cholecalciferol VITAMIN D (Vitamin D-3) 50 MCG (1999) capsule TAKE ONE CAPSULE EVERY MORNING 90 capsule 3 01/12/20 24 Active Incruse Ellipta 62.5 MCG/ACT aerosol powderIndication s:Chronic obstructive pulmonary disease, unspecified COPD type ([facility]) INHALE 1 PUFF DAILY AT THE SAME TIME EACH DAY 30 each 5 02/17/20 24 Active fluticasone (Flonase) 50 MCG/ACT nasal sprayIndications :Chronic obstructive pulmonary disease, unspecified COPD type ([facility]) INHALE 2 SPRAYS IN EACH NOSTRIL ONCE [...] 2 diabetes mellitus with hyperglycemia, unspecified whether terminal system operator insulin use ([facility]) TAKE ONE TABLET IN THE MORNING AND [...] presented decreased sensation of foot. Referral to [employer] for further evaluation. Left arm pain 08/25/2023 [...] Encounters Date Type Department Care Team Description 07/29/2024 Refill [facility] [address] [place] [address] Glo Delgadillo MD Constipation, unspecified constipation type 07/22/2024 11:15 AM EDT Office Visit [facility] [address] [place] [address] Glo Delgadillo MD Type 2 diabetes mellitus with hyperglycemia, unspecified whether halfway insulin use ([facility]) (Primary Dx); Constipation, unspecified constipation type; Poor balance; Anxiety 07/22/2024 Telephone [facility] [address] [place] [address] Glo Delgadillo MD 07/22/2024 Travel 07/15/2024 Patient Outreach [facility] [address] [place] [address] Glo Delgadillo MD Pre-visit Planning (Pre visit planning LVM ) 07/14/2024 10:30 AM EDT Clinical Support [facility] [address] [place] [address] Yi Burgess RN Anxiety 07/14/2024 Travel 07/06/2024 Refill [facility] [address] [place] [address] Michelle Holland MD Anxiety 06/17/2024 Telephone [facility] [address] [place], [place] [phone] Glo Delgadillo MD Request of transfer appointment 06/08/2024 Refill [facility] [address] [place] [address] Michelle Holland MD Anxiety 06/03/2024 2:00 PM EDT Clinical Support [facility] [address] [place] [address] Yi Burgess RN Anxiety (Primary Dx); Long-term current use of benzodiazepine 06/03/2024 Travel 05/11/2024 Refill [facility] [address] [place] [address] GravesLeodan Gorman MD Anxiety 05/06/2024 Refill [facility] [address] [place] [address] Glo Delgadillo MD Type 2 diabetes mellitus with hyperglycemia, unspecified whether terminal system operator insulin use ([facility]) 05/04/2024 2:00 PM EST Clinical Support [facility] [address] [place] [address] Yi Burgess RN Anxiety 05/04/2024 Travel from Last 3 Months Immunizations Immunization Administration Dates Next Due Hep B, adult 09/02/2017,04/25/2017,03/27/2017 Influenza High-dose Quadriva lent Preservative Free 12/13/2021,12/18/2020 Influenza injectable quadriv alent IIV4 with preservative 01/30/2017,02/15/2016,12/02/2014 Influenza injectable quadriv alent preservative free 05/15/2023 Influenza, High Dose Seasona l, Preservative Free 12/03/2023,02/02/2019,12/01/2017 Influenza, IIV3, injectable 12/11/2010 Influenza, Split (incl. mayuir fied surface antigen) 12/09/2012,11/25/2011 Moderna Covid-19 Vaccine 12+ 03/28/2021,06/23/19 21,05/25/2020 Pneumococcal Conjugate PCV 13 04/06/2015 Pneumococcal Polysaccharide [...] Description 09/23/2024 1:30 PM EDT Clinical Support [facility] [address] [place] [address] Yi Burgess, RN [address] [place] [address] 09/30/2024 1:45 PM EDT Office Visit [facility] [address] [place] [address] Heavenly Wlaters MD [address] [place], [place] [phone] Health Maintenance Due Date Last Done Comments Diabetes: Urine Protein Screening 10/31/2023 10/30/2022, 05/29/2021, 06/13/2020 COVID-19 Vaccine ( season) 2024 03/28/2021, 06/22/2020, 05/25/2020 Postponed from 11/16/2023 (Supply/Drug Shortage) Diabetes: Foot Exam 08/24/2024 08/25/2023, 08/25/2023, 08/25/2023, Additional history exists Lipid Panel 08/28/2024 08/29/2023, 10/15, 04/03/2022, Additional history exists Diabetes: Hemoglobin A1C 01/22/2025 025, 03/24/2024, 12/03/2023, Additional history exists Alcohol/Substance Use Screening 07/22/2025 07/22/2024 Depression Screening 07/22/2025 07/22/2024, 07/23/19 25 SDOH Screening 07/22/2025 07/22/2024 Tobacco Screening 07/22/2025 [...] patient's age to complete this topic Meningococcal B Vaccine Aged Out No l onger eligible based on patient's age to complete this topic Meningococcal Vaccine Aged Out No onesimo ekiry eligible based on patient's age to complete [...] 2 diabetes mellitus with hyperglycemia, unspecified whether terminal system operator insulin use ([facility]) POCT GLUCOSE Routine 07/22/2024 11:23 AM EDT Type 2 diabetes mellitus with hyperglycemia, unspecified whether halfway insulin use (CMS/HCC) POCT SHERRY-14 URINE DRUG SCREEN Routine 07/14/2024 11:09 AM EDT Anxiety POCT SHERRY-14 URINE DRUG SCREEN Routine 06/03/2024 2:20 PM EDT Long-term current use of benzodiazepine Anxiety POCT SHERRY-14 URINE DRUG SCREEN Routine 05/04/2024 2:23 PM EST Anxiety HEPATITIS C AB W/REFL TO HCV RNA, QN, PCR Routine 08/29/2023 2:28 PM EDT Type 2 diabetes mellitus with hyperglycemia, unspecified whether terminal system operator insulin use (CMS/HCC) LIPID PANEL, STANDARD Routine 08/29/2023 2:28 PM EDT Type 2 diabetes mellitus with hyperglycemia, unspecified whether halfway insulin use (CMS/HCC) ALBUMIN, RANDOM URINE W/CREATININE Routine 10/30/2022 12:05 PM EDT Type 2 diabetes mellitus with hyperglycemia, unspecified whether terminal system operator insulin use (CMS/HCC) HP LINK DIABETIC FOOT [...] RN - 07/14/2024 11:09 AM EDT Lot# [id number] Exp: 11-03-25 Glo Delgadillo MD POINT OF CARE TEST ENTER/EDIT ORDERABLES Final Result * Hepatitis C Antibody with Reflex to HCV, RNA, Quantitative, Real-Time PCR (08/29/2023 2:28 PM EDT) Pathologist [facility] Hepatitis C Antibody Nonreactive Nonreactive [facility] Comment:Antibodies to HCV no t detected; does not exclude early acuteHCV infection. Blood Venous blood specimen / Unknown 08/29/2023 2:28 PM EDT 08/29/2023 2:28 PM EDT Glo Delgadillo MD LAB BLOOD ORDERABLES Final Re sult [facility] [address] [place] [address] [phone] * (ABNORMAL) Lipid Panel, Standard (08/29/2023 2:28 PM EDT) Triglycerides 137 <150 mg/dL [facility] Comment:Desirable Triglyceri de: less than 150 mg/dLBorderline High Triglyceride 150-199 mg/dLHigh Triglyceride: 200-499 mg/dLVery High Triglyceride: greater than or equal to 5OO mg/dL Cholesterol 163 <200 mg/dL [facility] Comment:Desirable Cholestero l: less than 200 mg/dLBorderline High Cholesterol: 200-239 mg/dLHigh Cholesterol: greater than 239 mg/dL LDL Cholesterol Calculated 106(H) <100 mg/dL [facility] Comment:Desirable LDL: less than 100 mg/dLNear Optimal/Above Optimal LDL: 110- 129 mg/dLBorderline High LDL: 130-159 mg/dLHigh LDL: 160-189 mg/dLVery High LDL: greater than or equal to 190 mg/dL HDL Cholesterol 30(L) >40 mg/dL [facility] Comment:Desirable HDL: great er than 40 mg/dL Note: This HDL assay may give artificially low results in patients with liver disease. Blood Venous blood specimen / Unknown 08/29/2023 2:28 PM EDT 08/29/2023 2:28 PM EDT us Glo Delgadillo MD LAB BLOOD ORDERABLES Final Re sult Performing Organization Address [facility] de Phone Number [facility] [address] [place] [phone] * Albumin, Random Urine W/Creatinine (10/30/2022 12:05 PM EDT) Creatinine, Urine 168.20 mg/dL [facility] Microalbumin Urine 18.0 mg/L [facility] Microalbum Creatinine Ratio Ur 10.7 ug/mg cr [facility] Comment:Albumin/Creatinine R atio Reference Ranges: Normal: < 30 ug/mg creatinine Microalbuminuria: 30 - 300 ug/mg creatinineClinical Albuminuria: > 300 ug/mg creatinine Urine (Urine, Random) 10/30/2022 12:05 PM EDT 10/30/2022 5:34 PM EDT us Glo Delgadillo MD LAB URINE ORDERABLES Final Re sult Performing Organization Address City/[facility] Co de Phone Number [facility] [address] [place] [address] [phone] * (ABNORMAL) HP Diabetic Foot Exam (10/29/2022) us Glo Delgadillo MD HEALTH MAINTENANCE Final Resu lt from Last 3 Months or Most Recently Relevant to Health Maintenance Insurance [facility] STANDARD [facility] CARE HOME OPTIONS (HMO D-SNP) * Guarantor: [place] Account Type Relation to Patient Date of Phone Billing Address Personal/Family Self [address] [place] [address] Care Teams Associate Principal Relationship Specialty Start Date End Date Glo Delgadillo MD [address] [place] [address] PCP - General Family Medicine 12/18/20 09/29/24 Blank 100 Reshma Gilliam, [facility] [address], [place] [address] Consulting Physician Urology 03/13/23
--- OUTSIDE RECORDS SUMMARY | 2024-07-29 12:38 | XMS_ITS | Encounter Summary ---
Author Organization [employer] Address [address] [place] [address] Care Team Providers Care Sheep Herder Name Role Phone Glo Delgadillo MD Primary Care Provider [phone] Encounter Details Date Type Department Care Team (Late st Contact Info) Description 03/24/2024 Orders Only [facility] [address] [place], [place] [phone] Doreen Anderson MD [address] [place], [place] [phone] Social History Tobacco Use Types Packs/Day Years [...] Upcoming Encounters Date Type Department Care Team ([facility] st Contact Info) Description 09/23/2024 1:30 PM EDT Clinical Support [facility] [address] [place] [address] Yi Burgess RN [address] [place], [place] [phone] 09/30/2024 1:45 PM EDT Office Visit [facility] [address] [place], [place] [phone] Heavenly Walters MD [address] [place], [place] [phone] documented as of this encounter Procedures Procedure Name Priority Date/Time Associated Diagnosis Comments US BLADDER Routine 03/25/2024 3:01 PM EST documented in this encounter Results * US BLADDER (03/25/2024 3:01 PM EST) Anatomical Region Laterality Modality Abdomen Ultrasound 03/25/2024 3:01 PM EST Narrative 03/25/2024 4:10 PM EST ? [facility] ?[address] ?[place] [address] ? Ultrasound Report ? Signed ? Patient: Shahid,Daron ?MR#: [id number] ?? [id number] ? : 1945 ?Acct:[id number] ? Age/Sex: 79 / M ?ADM Date: //25 ? Loc: HO.US ? Attending Dr: Doreen Anderson MD ? Ordering Physician: Doreen Anderson MD ?? Date of Service: 03/25/24 ?? Procedure(s): US bladder ?? Accession Number(s): [id number] ? cc: Doreen Anderson MD; Glo Delgadillo [...] DD/ 1501 ? TD/TT: 03/25/24 1511 ? Smt Machine Operator: ? Procedure Note Harmony Sanon - 03/25/[address] [address] Ultrasound Report Signed Patient: [place] [facility]#: [id number] : 6Acct:[id number] Age/Sex: 79 / MADM Date: 03/25/24 Loc: HO.US Attending Dr: Doreen Anderson MD Ordering Physician: Doreen Anderson MD Date of Service: 03/25/24 Procedure(s): US bladder Accession Number(s): [id number] cc: Doreen Anderson MD; Glo Delgadillo MD [...] 03/25/24 1608 DD/ 1501 TD/TT: 03/25/24 1511 Smt Machine Operator: us Doreen Anderson MD IMG US PROCEDURES Final Resul t documented in this encounter Visit Diagnoses Not on filedocumented in this encounter Additional Health Concerns Assessment Noted Time PHQ-9 Depression Total Score: 3 05/15/19 24 3:05 PM EST documented as of this encounter Care Teams Sheep Herder Relationship Specialty Start Date End Date Glo Delgadillo MD [address] [place] [address] PCP - General Family Medicine 12/18/20 09/29/24 Blank 100 Reshma Gilliam [address] [address] Consulting Physician Urology 03/13/23 documented as of this encounter
--- OUTSIDE RECORDS SUMMARY | 2024-07-29 12:38 | XMS_ITS | Encounter Summary ---
Author Organization [employer] Address [address] [place] [address] [address] [place] [address] Care Team Providers Care Repairer Wood Furniture Name Role Phone Glo Delgadillo MD Primary Care Provider [phone] Reason for Visit * Reason Comments Med Refill Encounter Details Date Type Department Care Team ([facility] Contact Info) Description 11/21/[address] [facility] [address] [place] [address] Michelle Holland MD [address] [place] [address] Anxiety Social History Tobacco Use Types Packs/Day [...] Upcoming Encounters Date Type Department Care Team ([facility] Contact Info) Description 09/23/2024 1:30 PM EDT Clinical Support [facility] [address] [place] [address] Yi Burgess RN [address] [place] [address] 09/30/2024 1:45 PM EDT Office Visit [facility] [address] [place] [address] Heavenly Walters MD [address] [place] [address] documented as of this encounter Visit Diagnoses Diagnosis Anxiety Anxiety state, unspecified documented in this encounter Additional Health Concerns Assessment Noted Time PHQ-9 Depression Total Score: 1 04/18/19 23 3:01 PM EST documented as of this encounter Care Teams Repairer Wood Furniture Relationship Specialty Start Date End Date Glo Delgadillo MD [address] [place] [phone] PCP - General Family Medicine 12/18/20 09/29/24 Blank 100 Reshma Gilliam, [facility] [[email or web address] [address], [place] [address] Consulting Physician Urology 03/13/23 documented as of this encounter
[2024-07-29 12:46] LABS: SLIDE REVIEW VERIFIED
[2024-07-29 12:50] LABS: Alanine Aminotransferase 19 U/L (0-40); Albumin Level 4.1 g/dL (3.5-5.0); Alkaline Phosphatase 90 U/L (39-117); Anion Gap 14 (12-20); Aspartate Amino Transferase 21 U/L (5-37); Bilirubin Total 0.4 mg/dL (0.0-1.0); Blood Urea Nitrogen 19 mg/dL (9-16); Calcium 9.5 mg/dL (8.4-10.2); Carbon Dioxide 26 mmol/L (22-29); Chloride 108 mmol/L (96-108); Cholesterol 135 mg/dL (<200); Estimated Glomerular Filt Rate > 60; Glucose Random 191 mg/dL (60-115); HDL Cholesterol 31 mg/dL (>40); LDL Cholesterol Calculated 87 mg/dL (<100); Potassium 4.1 mmol/L (3.3-5.1); Sodium 144 mmol/L (135-145); Total Protein 6.7 g/dL (6.5-8.0); Triglycerides 88 mg/dL (<150)
[2024-07-29 12:59] LABS: TSH reflex Free T4 0.83 uIU/mL (0.32-4.0)
[2024-07-29 13:07] LABS: Folate 11.7 ng/mL (> or = 4.0); Vitamin B12 239 pg/mL (200-900)
== END 2024-07-29 11:32 | disposition home or self-care (01) ==
LOC: HO.CHCLDS 11:31
PROVIDERS: Visit Provider Family Medicine
DX: E11.65 Type 2 diabetes mellitus with hyperglycemia (principal)
CPT/HCPCS: 36415; 80053; 80061; 82607; 82746; 84443; 85025

== ENCOUNTER 2024-09-30 16:13 | Outpatient (REF) | payer OTHER, SELFPAY ==
--- OUTSIDE RECORDS SUMMARY | 2024-09-30 16:25 | XMS_ITS | Clinical Summary ---
Author Organization [employer] Address [address] [facility] [address] [place] [address] Care Team Providers Care Youth Worker Name Role Phone Heavenly Walters MD Primary Care Pro vider Allergies No known active allergies Medications Alcohol Swabs (Alcohol Prep) 70 % pads USE TWICE DAILY 06/19/19 22 Active aspirin 81 MG chewable tablet Chew 1 tablet at bed time. Active flecainide (Tambocor) 50 MG tablet Take 1 tablet by mouth 2 times daily. 03/14/20 22 Active Blood Glucose Monitoring Suppl (FreeStyle Lite) w/Device kitIndications: Type 2 diabetes mellitus with hyperglycemia, unspecified whether long term care pharmacist insulin use ([facility]) 1 Units 2 times daily. 1 unit to measure blood glucose BID and prn 1 kit 04/03/19 23 Active dilTIAZem (Cardizem) 30 MG immediate release tablet Take 1 tablet by mouth 2 times daily. 02/04/20 23 Active hydroCHLOROthia zide (Microzide) 12.5 MG capsule Take 1 capsule [...] 08/25/19 24 Active Lancets (OneTouch Delica Plus [id number]) miscIndications :Type 2 diabetes mellitus with hyperglycemia, without long-term current use of insulin ([facility]) TEST BLOOD SUGAR TWICE DAILY 100 each 08/29/19 24 Active OneTouch Ultra Test test stripIndication s:Type 2 diabetes mellitus with hyperglycemia, without long-term current use of insulin ([facility]) TEST BLOOD SUGAR TWICE DAILY 100 strip 08/29/19 24 Active cholecalciferol VITAMIN D (Vitamin D-3) 50 MCG (2000 UT) capsule TAKE ONE CAPSULE EVERY MORNING 90 capsule 3 01/12/20 24 Active polyethylene glycol, PEG, 3350 (Glycolax) 17 GM/SCOOP powderIndicatio ns:Constipation , unspecified constipation type Take 17 g by mouth Once per day. 510 g 3 07/23/19 25 Active buPROPion XL (Wellbutrin XL) 150 MG 24 hr tablet TAKE ONE TABLET EVERY MORNING 30 tablet 07/31/19 25 Active docusate sodium (Colace) 100 MG capsule TAKE ONE CAPSULE IN THE MORNING AND EVENING 60 capsule 07/31/19 25 Active lisinopril 20 MG tablet TAKE ONE TABLET EVERY MORNING 30 tablet 07/31/19 25 Active omeprazole (PriLOSEC) [address] capsule TAKE TWO CAPSULES EVERY MORNING 60 capsule 07/31/19 25 Active Stimulant Laxative 8.6-50 MG tabletIndicatio ns:Constipation , unspecified constipation type TAKE TWO TABLETS EVERY DAY AT BEDTIME 60 tablet 07/31/19 25 Active ferrous gluconate (Fergon) 324 (38 Fe) MG tablet Take 1 tablet (324 mg) by mouth with breakfast. 90 tablet 1 08/05/19 25 Active Incruse Ellipta 62.5 MCG/ACT aerosol powderIndicatio ns:Chronic obstructive pulmonary disease, unspecified COPD type ([facility]) INHALE 1 PUFF DAILY AT THE SAME TIME EACH DAY 30 each 08/27/19 25 Active fluticasone (Flonase) 50 MCG/ACT nasal sprayIndication s:Chronic obstructive pulmonary disease, unspecified COPD type ([facility]) INHALE 2 SPRAYS IN EACH NOSTRIL ONCE DAILY 16 mL 08/27/19 25 Active metFORMIN (Glucophage) 500 MG tabletIndicatio ns:Type 2 diabetes mellitus with hyperglycemia, unspecified whether long term care pharmacist insulin use ([facility]) TAKE ONE TABLET IN THE MORNING AND EVENING WITH MEALS 180 tablet 08/27/19 25 Active melatonin 5 MG tablet TAKE ONE TABLET EVERY NIGHT AT BEDTIME 90 tablet 1 09/24/19 25 Active LORazepam (Ativan) 0.5 MG tabletIndicatio ns:Anxiety Week 1: Reduce to twice daily dosing,Week 2: Reduce to once daily dosing Week 3: Alternate day dosing for 14 days , then discontinue 28 tablet 10/01/19 25 Active Ventolin HFA 108 (90 Base) MCG/ACT inhaler Inhale 2 puffs every 6 (six) hours if needed for wheezing. Pt moving medbox to [facility] thanks 18 g 2 10/01/19 25 Active Ventolin HFA 108 (90 Base) MCG/ACT inhaler INHALE TWO PUFFS FOUR TIMES DAILY NEEDED 06/19/19 22 2024 Discontinued(R eorder (will not trigger notification to Pharmacy)) melatonin 5 MG tablet TAKE ONE TABLET EVERY NIGHT AT BEDTIME 90 tablet 1 04/16/19 25 2024 Discontinued LORazepam (Ativan) 0.5 MG tabletIndicatio ns:Anxiety TAKE ONE TABLET THREE TIMES DAILY IN THE MORNING, AT NOON, AND AT BEDTIME FOR ANXIETY 84 tablet 09/02/19 25 2024 Discontinued LORazepam (Ativan) 0.5 MG tabletIndicatio ns:Anxiety TAKE ONE TABLET THREE TIMES DAILY IN THE MORNING, AT NOON, AND AT BEDTIME FOR ANXIETY 84 tablet 09/29/19 25 2024 Discontinued(R eorder (will not trigger notification to Pharmacy)) LORazepam (Ativan) 0.5 MG tabletIndicatio ns:Anxiety Week 1: Reduce to twice daily dosing,Week 2: Reduce to once daily dosing Week 3: Alternate day dosing for 14 days , then discontinue 28 tablet 10/01/19 25 2024 Discontinued(R eorder (will not trigger notification to Pharmacy)) Active Problems Problem Noted Date Diagnosed Date [...] presented decreased sensation of foot. Referral to Insurance Sales Agent for further evaluation. Left arm pain 08/25/2023 [...] Encounters Date Type Department Care Team Description 09/30/2024 1:45 PM EDT Office Visit [facility] [address] [place] [address] Heavenly Walters MD Anemia, unspecified type (Primary Dx); Health care maintenance; Poor balance; Chronic obstructive pulmonary disease, unspecified COPD type (CMS/HCC); Malignant tumor of prostate (CMS/HCC); Anxiety; Dementia with other behavioral disturbance, unspecified dementia severity, unspecified dementia type (CMS/HCC); Encounter for immunization 09/30/2024 Travel 09/29/2024 Telephone [facility] [address] [place] [address] Glo Delgadillo MD Chart Prep 09/23/2024 1:30 PM EDT Clinical Support [facility] [address] [place] [address] Yi Burgess RN Anxiety 09/23/2024 Patient Outreach [facility] [address] [place] [address] Glo Delgadillo MD Pre-visit Planning ([facility] unable to reach [facility] ) 09/23/2024 Telephone [facility] [address] [place] [address] Yi Burgess RN 09/23/2024 Travel 09/22/2024 Refill [facility] [address] [place] [address] Glo Delgadillo MD Anxiety 09/22/2024 Refill [facility] [address] [place] [address] Leodan Yap MD 08/25/2024 Refill [facility] [address] [place] [address] Glo Delgadillo MD Anxiety; Type 2 diabetes mellitus with hyperglycemia, unspecified whether long term care pharmacist insulin use ([facility]) 08/24/2024 Refill [facility] [address] [place] [address] Glo Delgadillo MD Chronic obstructive pulmonary disease, unspecified COPD type ([facility]) 08/04/2024 Results Follow-Up [facility] [address] [place] [address] Glo Delgadillo MD POCT Glucose, POCT HGB A1C, CBC auto differential, Additional followed-up results: 4 07/30/2024 Refill [facility] [address] [place] [address] Glo Delgadillo MD Type 2 diabetes mellitus with hyperglycemia, unspecified whether half-way insulin use ([facility]) 07/30/2024 Refill [facility] [address] [place] [address] Glo Delgadillo MD Type 2 diabetes mellitus with hyperglycemia, unspecified whether half-way insulin use ([facility]) 07/30/2024 Refill [facility] [address] [place] [address] Glo Delgadillo MD Anxiety 07/29/2024 Orders Only [facility] [address] [place] [address] Glo Delgadillo MD 07/29/2024 Refill [facility] [address] [place] [address] Glo Delgadillo MD Constipation, unspecified constipation type 07/22/2024 11:15 AM EDT Office Visit [facility] [address] [place] [address] Glo Delgadillo MD Type 2 diabetes mellitus with hyperglycemia, unspecified whether long term care pharmacist insulin use ([facility]) (Primary Dx); Constipation, unspecified constipation type; Poor balance; Anxiety 07/22/2024 Telephone [facility] [address] [place] [address] Glo Delgadillo MD 07/22/2024 Travel 07/15/2024 Patient Outreach [facility] [address] [place], [place] [phone] Glo Delgadillo MD Pre-visit Planning (Pre visit planning LVM ) 07/14/2024 10:30 AM EDT Clinical Support [facility] [address] [place] [address] Yi Burgess RN Anxiety 07/14/2024 Travel 07/06/2024 Refill [facility] [address] [place] [address] Michelle Holland MD Anxiety from Last 3 Months Immunizations Immunization Administration [...] 21,05/25/2020 Pneumococcal Conjugate PCV 13 04/06/2015 Pneumococcal Conjugate PCV 20 09/30/2024 Pneumococcal Polysaccharide PPSV23 05/10/2013 RSV Bivalent 07/22/2024 [...] Passive Smoke Exposure: Never Smokeless Tobacco: Never Comments:Started smoking 23 y of age and stopped at his 24 y of age -stopped already for > 50 years ,used to smoke 2 cig a day Alcohol Use Standard Drinks/Week Comments Never 0 (1 standard drink = 0.6 oz pur e alcohol) Depression Answer Date Recorded Patient Health Questionnaire-9 Score 0 09/30/2024 Patient Health Questionnaire-9 Score 0 09/30/2024 Last PHQ-9: Questionnaire Data Not on file 0 09/30/2024 Housing Stability Answer Date Recorded What is [...] Date Recorded Patient Health Questionnaire-2 Score 0 09/30/2024 Internet Access Answer Date Recorded Internet Access [...] Sign Reading Time Taken Comments Blood Pressure 136/66 09/30/2024 1:45 PM EDT Pulse 50 09/30/2024 1:45 PM EDT Temperature 36.8 C (98.2 F) 09/30/2024 1:45 PM EDT Respiratory Rate 18 09/30/2024 1:45 PM EDT Oxygen Saturation 98% 09/30/2024 1:45 PM EDT Inhaled Oxygen Concentration - - Weight 70.8 kg (156 lb) 09/30/2024 1:45 PM EDT Height 169 cm (5' 6.54 ) 09/30/2024 1:45 PM EDT Body Mass Index 24.77 09/30/2024 1:45 PM EDT Plan of Treatment Upcoming Encounters Date Type Department Care Team (Late st Contact Info) Description 12/03/2024 11:00 AM EDT Clinical Support [facility] [address] [place] [address] Yi Burgess, LISA [address] [place] [address] Health Maintenance Due Date Last Done Comments Diabetes: Urine Protein Screening 10/31/2023 10/30/2022, 05/29/2021, 06/13/2020 COVID-19 Vaccine ( season) 2023 03/28/2021, 06/22/2020, 05/25/2020 Diabetes: Foot Exam 08/24/2024 08/25/2023, 08/25/2023, 08/25/2023, Additional history exists Influenza Vaccine (#1) 2024 , 05/15/2023, 12/13/2021, Additional history exists Diabetes: Hemoglobin A1C 01/22/2025 025, 03/24/2024, 12/03/2023, Additional history exists Alcohol/Substance Use Screening 07/22/2025 07/22/2024 SDOH Screening 07/22/2025 07/22/2024 Lipid Panel 07/29/2025 07/29/2024, 08/15, 10/30/2022, Additional history exists Depression Screening 09/30/2025 09/30/2024, 10/01/19 Tobacco Screening 09/30/2025 09/30/2024 Eye Exam 12/01/2025 12/02/2023, 11/15, 12/02/2023, Additional history exists DTaP/Tdap/Td Vaccines (3 - Td or Tdap) 05/14/2033 05/15/2023, 06/16/2012, 12/05/1998 Hepatitis B Vaccines Completed 09/02/2017, 04/25/2017, 03/27/2017 Zoster Vaccines Completed 09/28/2019, 04/18, 04/06/2015 Hepatitis C Screening Completed 08/29/2023 RSV Patients and Patients Aged 60 years or older Completed 07/22/2024 Pneumococcal Vaccine: 50+ Years Completed 09/30/2024, 04/06/2015, 05/10/2013 HIB Vaccines Aged Out No longer eligi [...] Name Priority Date/Time Associated Diagnosis Comments POCT SHERRY-14 URINE DRUG SCREEN Routine 09/23/2024 1:41 PM EDT Anxiety SLIDE REVIEW Routine 07/29/2024 11:34 AM EDT VITAMIN B12/FOLATE, SERUM PANEL Routine 07/29/2024 11:34 AM EDT Type 2 diabetes mellitus with hyperglycemia, unspecified whether half-way insulin use (CMS/HCC) TSH W/REFLEX TO FT4 Routine 07/29/2024 1 1:34 AM EDT Type 2 diabetes mellitus with hyperglycemia, unspecified whether half-way insulin use (CMS/HCC) LIPID PANEL, STANDARD Routine 07/29/2024 11:34 AM EDT Type 2 diabetes mellitus with hyperglycemia, unspecified whether long term care pharmacist insulin use (CMS/HCC) COMPREHENSIVE METABOLIC PANEL Routine 07/29/2024 11:34 AM EDT Type 2 diabetes mellitus with hyperglycemia, unspecified whether long term care pharmacist insulin use (CMS/HCC) CBC WITH AUTO DIFFERENTIAL Routine 07/29/2024 11:34 AM EDT Type 2 diabetes mellitus with hyperglycemia, unspecified whether long term care pharmacist insulin use (CMS/HCC) POCT GLYCATED HEMOGLOBIN, TOTAL Routine 07/22/2024 11:23 AM EDT Type 2 diabetes mellitus with hyperglycemia, unspecified whether long term care pharmacist insulin use (CMS/HCC) POCT GLUCOSE Routine 07/22/2024 11:23 AM EDT Type 2 diabetes mellitus with hyperglycemia, unspecified whether half-way insulin use (CMS/HCC) POCT SHERRY-14 URINE DRUG SCREEN Routine 07/14/2024 11:09 AM EDT Anxiety HEPATITIS C AB W/REFL TO HCV RNA, QN, PCR Routine 08/29/2023 2:28 PM EDT Type 2 diabetes mellitus with hyperglycemia, unspecified whether half-way insulin use (CMS/HCC) ALBUMIN, RANDOM URINE W/CREATININE Routine 10/30/2022 12:05 PM EDT Type 2 diabetes mellitus with hyperglycemia, unspecified whether long term care pharmacist insulin use ([facility]) HP LINK DIABETIC FOOT EXAM Routine 10/29/2022 from Last 3 Months or Most Recently Relevant to Health Maintenance Results * (ABNORMAL) POCT SHERRY-14 Urine Drug Screen (09/23/2024 1:41 PM EDT) Only the most recent of2 resultswithin the time period is included. THC Negative Negative Cocaine Screen, Urine Negative Negative Opiate Screen, Urine Negative Negative Methamphetamine Screen Urine Negative Negative Amphetamine Screen, Urine Negative Negative Benzodiazepines Screen, Urine Positive(A) Negative Barbiturate Screen, Urine Negative Negative Methadone Screen, Urine Negative Negative Buprenophine Screen, Urine Negative Negative TCA, Urine Negative Negative MDMA Urine Negative Negative ng/mL Oxycodone Screen, Urine Negative Negative Phencyclidine (PCP), Urine Negative Negative Propoxyphene, Urine Negative Negative Fentanyl, Urine Negative Negative Urine Urine specimen obtained by clean catch procedure / Unknown 09/23/2024 1:41 PM EDT Glo Delgadillo MD POINT OF CARE TEST ENTER/EDIT ORDERABLES Final Result * Slide Review (07/29/2024 11:34 AM EDT) Slide Review VERIFIED [facility] 07/29/2024 11:3 4 AM EDT 07/29/2024 12:05 PM EDT Glo Delgadillo MD LAB BLOOD ORDERABLES Final Re sult [facility] [address] [place] [phone] * Vitamin B12 (Cobalamin) and Folate Panel, Serum (07/29/2024 11:34 AM EDT) Vitamin B12 239 200 - 900 pg/mL [facility] Comment:NORMAL 200-900 PG/ML INDETERMINATE 160-199 PG/ML DEFICIENT < 160 PG/ML Folate 11.7 > or = 4.0 ng/mL [facility] Comment:Reference Values:> o r = 4.0 ng/mL< 4.0 ng/mL suggests folate deficiency Methotrexate, aminopterin and folinic acid(leucovorin) are chemotherapeutic agents whose molecularstructures are similar to folate; therefore, the Architectfolate assay cannot be used for patients using these drugs. Blood Venous blood specimen / Unknown 07/29/2024 11:34 AM EDT 07/29/2024 12:05 PM EDT Glo Delgadillo MD LAB BLOOD ORDERABLES Final Re sult Performing Organization Address [facility] Co de Phone Number [facility] [address] [place] [phone] * TSH W/Reflex to FT4 (07/29/2024 11:34 AM EDT) TSH reflex Free T4 0.83 0.32 - 4.0 uIU/mL [facility] Blood Venous blood specimen / Unknown 07/29/2024 11:34 AM EDT 07/29/2024 12:05 PM EDT Glo Delgadillo MD LAB BLOOD ORDERABLES Final Re sult Performing Organization Address [facility]/ZIP Co de Phone Number [facility] [address] [place] [phone] * (ABNORMAL) CBC auto differential (07/29/2024 11:34 AM EDT) White Blood Count 4.0(L) 4.8 - 10.8 X10*3/uL [facility] Red Blood Count 3.93(L) 4.60 - 5.80 X10*6/uL [facility] Hemoglobin 11.7(L) 14.0 - 18.0 g/dl [facility] Hematocrit 35.7(L) 42.0 - 52.0 % [facility] Mean Corpuscular Volume 90.8 80.0 - 98.0 fL [facility] Mean Corpuscular Hemoglobin 29.8 27.0 - 33.0 pg [facility] Mean Corpuscular HGB Conc 32.8 31.0 - 36.0 g/dl [facility] Red Cell Distribution Width 12.2 11.0 - 16.0 % [facility] Platelet Count 201 160 - 400 X10*3/uL [facility] Mean Platelet Volume 9.4 9.4 - 12.4 fL [facility] Neutrophils Percent Auto 57.2 45 - 73 % [facility] Imm Gran Pct Auto 0.2 0.0 - 0.4 % [facility] Lymphocytes Percent Auto 31.2 20 - 40 % [facility] Monocytes Percent Auto 8.2 2 - 11 % [facility] Eosinophils Percent Auto 2.5 0 - 4 % [facility] Basophils Percent Auto 0.7 0 - 2 % [facility] NRBC Pct Auto 0.0 0.0 - 0.2 /100WBC [facility] Neutrophils Absolute Auto 2.3 2.0 - 8.3 x10*3/uL [facility] Imm Gran Abs Auto 0.01 0.00 - 0.03 X10*3/uL [facility] Lymphocytes Absolute Auto 1.3 1.2 - 4.9 X10*3/uL [facility] Monocytes Absolute Auto 0.3 0.1 - 1.2 X10*3/uL [facility] Eosinophils Absolute Auto 0.1 0.0 - 0.4 X10*3/uL [facility] Basophils Absolute Auto 0.0 0.0 - 0.2 X10*3/uL [facility] NRBC Abs Auto 0.000 0.0 - 0.012 X10*3/uL [facility] Blood Venous blood specimen / Unknown 07/29/2024 11:34 AM EDT 07/29/2024 12:05 PM EDT us Glo Delgadillo MD LAB BLOOD ORDERABLES Edited R esult - Final Performing Organization Address [facility]/ZIP Co de Phone Number [facility] [address] [place] [phone] * (ABNORMAL) Lipid Panel, Standard (07/29/2024 11:34 AM EDT) Triglycerides 88 <150 mg/dL [facility] Comment:Desirable Triglyceri de: less than 150 mg/dLBorderline High Triglyceride 150-199 mg/dLHigh Triglyceride: 200-499 mg/dLVery High Triglyceride: greater than or equal to 5OO mg/dL Cholesterol 135 <200 mg/dL [facility] Comment:Desirable Cholestero l: less than 200 mg/dLBorderline High Cholesterol: 200-239 mg/dLHigh Cholesterol: greater than 239 mg/dL LDL Cholesterol Calculated 87 <100 mg/dL [facility] Comment:Desirable LDL: less than 100 mg/dLNear Optimal/Above Optimal LDL: 110- 129 mg/dLBorderline High LDL: 130-159 mg/dLHigh LDL: 160-189 mg/dLVery High LDL: greater than or equal to 190 mg/dL HDL Cholesterol 31(L) >40 mg/dL [facility] Comment:Desirable HDL: great er than 40 mg/dL Note: This HDL assay may give artificially low results in patients with liver disease. Blood Venous blood specimen / Unknown 07/29/2024 11:34 AM EDT 07/29/2024 12:05 PM EDT us Glo Delgadillo MD LAB BLOOD ORDERABLES Final Re sult Performing Organization Address [facility]/ZIP Co de Phone Number [facility] [address] [place] [phone] * (ABNORMAL) Comprehensive Metabolic Panel (07/29/2024 11:34 AM EDT) Sodium 144 135 - 145 mmol/L [facility] Potassium 4.1 3.3 - 5.1 mmol/L [facility] Chloride 108 96 - 108 mmol/L [facility] Carbon Dioxide 26 22 - 29 mmol/L [facility] Anion Gap 14 12 - 20 [facility] Urea Nitrogen (BUN) 19(H) 9 - 16 mg/dL [facility] Creatinine, Serum 1.14 0.5 - 1.4 mg/dL [facility] Estimated Glomerular Filt Rate >60 [facility] Comment:Chronic Kidney Disea se: Estimated GFR < 60 mL/min/[id number] Kidney Disease: Estimated GFR < 15 mL/min/1.73m2 Glucose 191(H) 60 - 115 mg/dL [facility] Calcium 9.5 8.4 - 10.2 mg/dL [facility] Bilirubin, Total 0.4 0.0 - 1.0 mg/dL [facility] Aspartate Amino Transferase 21 5 - 37 U/L [facility] Alanine Aminotransferase 19 0 - 40 U/L [facility] Total Protein 6.7 6.5 - 8.0 g/dL [facility] Albumin Level 4.1 3.5 - 5.0 g/dL [facility] Alkaline Phosphatase 90 39 - 117 U/L [facility] Blood Venous blood specimen / Unknown 07/29/2024 11:34 AM EDT 07/29/2024 12:05 PM EDT us Glo Delgadillo MD LAB BLOOD ORDERABLES Final Re sult [facility] [address] [place] [phone] * POCT HGB A1C (07/22/2024 11:23 AM EDT) Hemoglobin A1C 5.5 4.0 - 6.0 % QC Media Lot # [id number] Lot# Expiration Date [id number] Blood 07/22/2024 11:2 3 AM EDT us Glo Delgadillo MD POINT OF CARE TEST ENTER/EDIT ORDERABLES Final Result * (ABNORMAL) POCT Glucose (07/22/2024 11:23 AM EDT) Pathologist [facility] Glucose Blood, POC 236(A) 60 - 200 mg/dL QC Media Lot # [id number] Lot# Expiration Date [id number] Blood Capillary blood specimen / Unknown 07/22/2024 11:23 AM EDT Glo Delgadillo MD POINT OF CARE TEST ENTER/EDIT ORDERABLES Final Result * Hepatitis C Antibody with Reflex to HCV, RNA, Quantitative, Real-Time PCR (08/29/2023 2:28 PM EDT) Pathologist [facility] Hepatitis C Antibody Nonreactive Nonreactive [facility] Comment:Antibodies to HCV no t detected; does not exclude early acuteHCV infection. Blood Venous blood specimen / Unknown 08/29/2023 2:28 PM EDT 08/29/2023 2:28 PM EDT Result [facility] Glo Delgadillo MD LAB BLOOD ORDERABLES Final Re sult [facility] [address] [place] [phone] * Albumin, Random Urine W/Creatinine (10/30/2022 12:05 PM EDT) Pathologist [facility] Creatinine, Urine 168.20 mg/dL [facility] Microalbumin Urine 18.0 mg/L [facility] Microalbum Creatinine Ratio Ur 10.7 ug/mg cr [facility] Comment:Albumin/Creatinine R atio Reference Ranges: Normal: < 30 ug/mg creatinine Microalbuminuria: 30 - 300 ug/mg creatinineClinical Albuminuria: > 300 ug/mg creatinine Urine (Urine, Random) 10/30/2022 12:05 PM EDT 10/30/2022 5:34 PM EDT Glo Delgadillo MD LAB URINE ORDERABLES Final Re sult [facility] [address] [place] [phone] * (ABNORMAL) HP Diabetic Foot Exam (10/29/2022) us Glo Delgadillo MD HEALTH MAINTENANCE Final Resu lt from Last 3 Months or Most Recently Relevant to Health Maintenance Insurance * Guarantor: [place] [employer] Account Type Relation to Patient Date of Phone Billing Address Personal/Family Self [address] [place] [address] [facility] STANDARD [facility] LONG TERM OPTIONS (HMO D-SNP) * Guarantor: [place] [employer] Account Type Relation to Patient Date of Phone Billing Address Personal/Family Self [address] [place] [address] * Guarantor: [place] [employer] Account Type Relation to Patient Date of Phone Billing Address Personal/Family Self [address] [place] [address] Care Teams Youth Worker Relationship Specialty Start Date End Date Heavenly Walters MD [address] [place] [address] [phone] PCP - General Internal Medicine 09/30/24 Blank [address] Reshma Gilliam, [facility] [address], [place] [address] Consulting Physician Urology 03/13/23
[2024-09-30 17:19] LABS: Microalbum/Creatinine Ratio Ur 30.5 ug/mg cr (<30)
== END 2024-09-30 16:14 | disposition home or self-care (01) ==
LOC: HO.LNP 16:13
PROVIDERS: Visit Provider Student in an Organized Health Care Education/Training Program
DX: Z00.00 Encounter for general adult medical examination without abnormal findings (principal); D64.9 Anemia, unspecified
CPT/HCPCS: 82043; 82570

== ENCOUNTER 2024-10-07 12:48 | Outpatient (AMB) | payer OTHER, SELFPAY ==
--- NOTE | 2024-10-07 13:35 | AM.OFFVISNUR ---
Intake Visit Reasons: EKG Allergies No Known Allergies Allergy (Mild, Verified 05/08/23 14:27) NONE Nursing Note pt is here for nurse visit with ekg pt has no complaints pt is on Flecainide 50 mg PO Q12H ekg reviewed by Dr Soriano Office Procedures EKG [id number], Complete Coding CPT Codes EKG - CPT: 80371-[id number], Complete ([id number])
== END 2024-10-07 13:49 | disposition home or self-care (01) ==
LOC: HO.HCS 12:48
PROVIDERS: PCP Family Medicine; Visit Provider Internal Medicine Cardiovascular Disease
DX: I49.1 Atrial premature depolarization (principal); R00.1 Bradycardia, unspecified
CPT/HCPCS: 93010

== ENCOUNTER → 2024-10-07 12:48 | Outpatient (BNVA) | payer OTHER, SELFPAY | PROVIDERS: PCP Family Medicine; Visit Provider Internal Medicine Cardiovascular Disease | DX: I49.1 Atrial premature depolarization (principal); R94.31 Abnormal electrocardiogram [ECG] [EKG] | CPT/HCPCS: 93005 ==

== ENCOUNTER 2024-12-20 10:04 | Outpatient (REF) | payer OTHER, SELFPAY ==
--- OUTSIDE RECORDS SUMMARY | 2024-12-16 11:15 | XMS_ITS | Encounter Summary ---
Author Organization [employer] Address [address] [place] [address] [address] [address] Care Team Providers Care Executive Coach Name Role Phone Heavenly Walters MD Primary Care Pro vider Reason for Referral * Neurology (Routine) - Authorized Specialty Diagnoses / Procedures Referred By Kori anderson Referred To Contact Diagnoses Numbness Procedures Nerve conduction test Heavenly Walters MD [address] [place] [address] Phone: tel: fax: [address] Phone: tel: fax: Referral ID Status Reason Start Date Expiration Date V isits Requested Visits Authorized [id number] Authorized 12/16/2024 12/16/2025 1 1 * Neurology (Routine) - Authorized Specialty Diagnoses / Procedures Referred By Contac t Referred To Contact Diagnoses Numbness Procedures EMG Heavenly Walters MD [address] [place] [address] Phone: tel: fax: [address] Phone: tel: fax: Referral ID Status Reason Start Date Expiration Date V isits Requested Visits Authorized [id number] Authorized 12/16/2024 12/16/2025 1 1 * Imaging (Routine) - Pending Review Specialty Diagnoses / Procedures Referred By Contac t Referred To Contact Radiology Diagnoses Numbness Procedures MR Cervical Spine w/o Contrast Heavenly Walters MD [address] [place] [address] Phone: tel: fax: [address] Phone: tel: fax: Referral ID Status Reason Start Date Expiration Date V isits Requested Visits Authorized [id number] Pending Review 12/16/2024 12/16/2025 1 1 Encounter Details Date Type Department Care Team (Late st Contact Info) Description 12/16/2024 11:15 AM EDT Office Visit [facility] [address] [place] [address] Heavenly Walters MD [address] [place] [address] Numbness (Primary Dx); Type 2 diabetes mellitus with hyperglycemia, unspecified whether termite treater insulin use (HCC); Encounter for vaccination; Encounter for immunization; Dietary counseling; Exercise counseling Social History Tobacco Use Types Packs/Day Years Used Date Smoking Tobacco: Former Cigarettes Passive Smoke Exposure: Never Smokeless Tobacco: Never Tobacco Cessation:Counseling Given: Not Answered Comments:Started smoking 23 y of age and [...] AM EDT documented as of this encounter Last Filed Vital Signs Vital Sign Reading Time Taken Comments Blood Pressure 134/62 12/16/2024 11:25 AM EDT Pulse 53 12/16/2024 11:25 AM EDT Temperature 36.2 C (97.1 F) 12/16/2024 11:25 AM EDT Respiratory Rate 20 12/16/2024 11:25 AM EDT Oxygen Saturation 98% 12/16/2024 11:25 AM EDT Inhaled Oxygen Concentration - - Weight 71.9 kg (158 lb 9.6 oz) 12/16/2024 11:25 AM EDT Height 169 cm (5' 6.54 ) 12/16/2024 11:25 AM EDT Body Mass Index 25.18 12/16/2024 11:25 AM EDT documented in this encounter Progress Notes * Heavenly Gardner MD - 12/16/2024 11:15 AM EDT Subjective Patient ID: Washington Key is a 79 y.o. 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 Bx: Fragments of tubular adenomata; negative for high-grade dysplasia or carcinoma -vaccines s/p hep B x3, P13 2015-P20 09/2024 , RSV 07/2024 ,Covid 19 X3, Tdap 2023 ,Shingrix 3,COVID 19 and Flu vaccine Today here ---- -Advised to bring medbox at next apt and I request to [facility] pharmacy to start doing box here for nextmonth -ask today ,pt wants to be FULL CODE and states will choose for health care proxy----gave paperwork today to bring at next apt -had labs done in 07/2024 Will do missing labs for annual exam-will do once STI test for baseline ifneg will stop given no active sexual life -pd labs for annual printed today to do in fasting DM2 Today capillary hb1AC 5.9, CBG 225 --usually after meals < 200 rare main depending of what he is eating -07/2024 capillary hb1AC 5.5 total ch 135, LDL 87,chem wnl -09/2024 Microalb 30.5 on Gabriel inh -apt w eye 04/19/25 -will do foot exam at next apt -metformin 500 mg BID -on ASA for primary prevention ? --if that is the case may need to consider discussion to stop to avoid risk of bleeding given pt 's age -will do lipids first HTN BP controlled -09/2024 Microalb 30.5 on Gabriel inh -EKG f w his geological engineering teacher -apt w eye 04/19/25 -lisinopril 20 mg daily + HDCTZ 12.5----> will check w pt at next apt will offer to give combination pill to decrease pill burden PAC Thoracic aortic aneurysm -Saw Cards -Dr Soriano 03/2024 for Premature atrial contractions and Thoracic aortic aneurysm Highly symptomatic and frequent PACs which are very well suppressed on flecainide therapy. Needs combination of diltiazem therapy. Continue the same. If symptoms she was advised office especially if he was fr equent and prolonged palpitations. EKGs and every 6 months as well planned for TTE in 6 mo -On Flecainide 50 mg BID and Diltiazem 30 mg BID Prostate ca-active -Low volume prostate ca-f w urologist at [facility] -last seen 05/2024 ,No hx of tx -pt is been monitored every 6 months -per last visit ,PSA was 9.2 w plan to repeat PSA in 6 mo and if stable maydo MRI -Bladder US 03/2024 :Urinary bladder demonstrate a mildly thickened and trabeculated wall with 34 mLpost void residual.Marked prostatic enlargement -saw urologist 11/2024 for f up on low volume proate ca plan to see again 6 to 8 weeks Depression/anxiety -PHQ9 0 BRISA 0 Stopped BZD w taper 2 mo ago w no issues ,reports doing ok -Wellbutrin 150 mg,melatonin 5 mg HS COPD Reports to be controlled -Incruse ellipta ( umeclidinium) -LEONA PRN GERD -on omeprazole 2 tab of 20 mg--pt would like to decrease to 20 mg daily -denies history of GIB --ifat future doing ok w lower dose will do PRN only Anemia -07/2024 WBC 4, hb 11.7<--12.4 , MCV 90.8,Vit B12 and folic acid wnl, TSH wnl Denies melenas,nor BRPR ,hx of microscopic hematuria Possibly associated w prostate ca? -iron and vit C daily -started 4 mo ago -repeat CBC,iron panel and FOBT-pd to do Constipation -last TSH in 07/2024 was wnl -colonoscopy 04/2022: Colon polyps, diverticulosis, melanosis coli . Bx: Fragments of tubular adenomata; negative for high-grade dysplasia or carcinoma -Colace BID ,Senna , miralax PRN -start metamucil for constipation to current regimen Chronic rhinitis -loratadine PRN -Flonase ---avoid chronic use--states no needing not using -removed from system today Poor memory -07/2024 Vit B12 and folic acid wnl, TSH wnl Pt imbalance ,dementia and reported urinary frequency-from chart -no incontinence Will r/o normal pressure hydrocephalus -will do Brain MRI order already--gave today info to call -will need to do MOCA eval at future apt request again today to RN -req today RN for call [facility] to get CM to help w pt s apt and VNA weekly Imbalance Numbness in extremities Pt reports years of numbness sensation in right arm described as constant sensation and now in his feet ,never hx of stroke,denies weakness ,thinks imbalance from numbness sensation. And most recently in left arm and left side of chest From exam today normal strength in 4 ext , no focalizing findings normal CN exam Seems symptoms most likely from DM neuropathy Vit b12 deff, Peripheral polyneuropathy vs Cervical spondylotic myelopathy ,seems less likely but other diagnosis as Multiple sclerosis needs to be consider Pt imbalance ,dementia and reported urinary frequency-from chart -no incontinence Will r/o normal pressure hydrocephalus -Given dementia will start eval w Brain MRI to r/o brain ischemic findings or findings of NPH -referred to physiatry by previous PCP but given location is in [place] ,pt refuse to be seen but agreed today to be referre for PT here in [place] --gave info today -advised pt to use RW and cane that has at home -Pd to get labs vit B 12 -referred today for cervical MRI -referred for EMG/NCS -may need neuro referral if no explanation Review of Systems Chronic worsening numbness in extremities Objective BP 134/62 (BP Location: Left arm, Patient Position: Sitting, BP Cuff Size: Adult) Pulse 53 Temp97.1 ??F (36.2 ??C) (Temporal) Resp 20 Ht 5' 6.54 (1.69 m) Wt 158 lb 9.6 oz (71.9 kg) PnK109% BMI 25.18 kg/m?? Physical Exam Constitutional: General: Washington is not in acute distress. Appearance: Normal appearance. Washington is not ill-appearing. Neurological: General: No focal deficit present. Mental Status: Washington is alert. Cranial Nerves: No cranial nerve deficit. Sensory: No sensory deficit. Motor: No weakness. Comments: Strength in 4 extremities 5/5 ,normal sensory evaluation in all extremities. Assessment/Plan Problem List Items Addressed This Visit Type 2 diabetes mellitus with hyperglycemia (HCC) Relevant Orders POCT Glucose (Completed) POCT Hgb A1c (Completed) Other Visit Diagnoses Numbness - Primary Relevant Orders MR Cervical Spine w/o Contrast EMG Nerve conduction test Encounter for vaccination Relevant Orders COVID-19 VACCINE [id number] (Comirnaty) 12 yrs + (Completed) Encounter for immunization Relevant Orders FLU VACCINE TRIVALENT HIGH DOSE (Fluzone) 65 yrs + (Completed) Dietary counseling Exercise counseling documented in this encounter Plan of Treatment Upcoming Encounters Date Type Department Care Team (Late st Contact Info) Description 04/19/2025 1:00 PM EST Office Visit [facility] [address] [place] [address] Davis, Violetta, OD [address] [place] [address] Scheduled Orders Name Type Priority Associated Diagnoses Orde r Schedule MR Cervical Spine w/o Contrast Imaging Routine Numbness Expected: 12/16/2024, Expires: 12/16/2025 EMG Neurology Routine Numbness Expected: 12/16/2024 (Approximate), Expires: 12/16/2025 Nerve conduction test Neurology Routine Numbness Expected: 12/16/2024 (Approximate), Expires: 12/16/2025 documented as of this encounter Procedures Procedure Name Priority Date/Time Associated Diagnosis Comments POCT GLYCATED HEMOGLOBIN, TOTAL Routine 12/16/2024 11:29 AM EDT Type 2 diabetes mellitus with hyperglycemia, unspecified whether termite treater insulin use (HCC) POCT GLUCOSE Routine 12/16/2024 11:26 AM EDT Type 2 diabetes mellitus with hyperglycemia, unspecified whether snf insulin use (HCC) documented in this encounter Results * (ABNORMAL) POCT Hgb A1c (12/16/2024 11:29 AM EDT) Hemoglobin A1C 5.9(A) 4.0 - 5.7 % QC Media Lot # [id number] Lot# Expiration Date ,671,027 Blood 12/16/2024 11:2 9 AM EDT Heavenly Gardner MD POINT OF CARE EVA T ENTER/EDIT ORDERABLES Final Result * (ABNORMAL) POCT Glucose (12/16/2024 11:26 AM EDT) Glucose Blood, POC 225(A) 60 - 200 mg/dL QC Media Lot # [id number] Lot# Expiration Date ,026 Blood Capillary blood specimen / Unknown 12/16/2024 11:26 AM EDT Heavenly Gardner MD POINT OF CARE EVA T ENTER/EDIT ORDERABLES Final Result documented in this encounter Visit Diagnoses Diagnosis Numbness- Primary Disturbance of skin sensation Type 2 diabetes mellitus with hyperglycemia, unspecified whether snf insulin use (HCC) Encounter for vaccination Encounter for immunization Dietary counseling Dietary surveillance and counseling Exercise counseling documented in this encounter Additional Health Concerns Assessment Noted Time PHQ-9 Depression Total Score: 0 10/01/19 25 1:47 PM EDT documented as of this encounter Care Teams Executive Coach Relationship Specialty Start Date End Date Heavenly Walters MD [address] [place] [address] PCP - General Internal Medicine 09/30/24 Blank Gilliam, [facility] [address], [place] [address] Consulting Physician Urology 03/13/23 documented as of this encounter
[2024-12-20 11:33] LABS: Hematocrit 36.4 % (42.0-52.0); Hemoglobin 12.3 g/dl (14.0-18.0); Mean Corpuscular HGB Conc 33.8 g/dl (31.0-36.0); Mean Corpuscular Hemoglobin 30.5 pg (27.0-33.0); Mean Corpuscular Volume 90.3 fL (80.0-98.0); NRBC Abs Auto 0.000 X10*3/uL (0.0-0.012); NRBC Pct Auto 0.0 /100WBC (0.0-0.2); Platelet Count 184 X10*3/uL (160-400); Red Blood Count 4.03 X10*6/uL (4.60-5.80); White Blood Count 3.9 X10*3/uL (4.8-10.8)
--- OUTSIDE RECORDS SUMMARY | 2024-12-20 11:42 | XMS_ITS | Encounter Summary ---
Author Organization [employer] Address [address] [facility] 7t [place] [address] Care Team Providers Care Garment Manufacturing Supervisor Name Role Phone Heavenly Walters MD Primary Care Pro vider Reason for Visit * Reason Onset Date Comments Care Coordination 12/16/2024 VNA Referral 12/16/2024 Appointment Request 12/16/2024 Encounter Details Date Type Department Care Team ([facility] st Contact Info) Description 12/16/2024 Telephone [facility] [address] [place] [address] Sarah Cobos, RN [address] [place] [address] Care Coordination; VNA Referral; Appointment Request Social History Tobacco Use Types Packs/Day Years [...] encounter Miscellaneous Notes * Telephone Encounter - Sarah Cobos RN - 12/16/2024 1:11 PM EDT Telephone call placed to [facility]. Spoke with Gwen who states will send message to director career Marlys Angela. Informed that pt has dementia and struggles to schedule and keep appts. Informed PCP orderedNCS, EMG, and MR of spine to be sent to [facility]. Please assist pt in scheduling and remembering to keep these appts. Gave my direct ext for call back as needed. VNA referral order generated and placed on PCP's desk. Pending signature. Pt not on recall to see PCP until April will send task to contact pt to schedule in March. Please can you help pt He has [facility] but needs help w CM to remind apt, pt has dementia and lives alone w Also needs VNA to check on pt at least once a week -please help pt w MOCA evaluation prior next apt w me Thanks documented in this encounter Plan of Treatment Upcoming Encounters Date Type Department Care Team ([facility] st Contact Info) Description 04/19/2025 1:00 PM EST Office Visit [facility] [address] [place] [address] [id number] Violetta Cannon, OD [address] [place] [address] documented as of this encounter Visit Diagnoses Not on filedocumented in this encounter Additional Health Concerns Assessment Noted Time PHQ-9 Depression Total Score: 0 10/01/19 25 1:47 PM EDT documented as of this encounter Care Teams Garment Manufacturing Supervisor Relationship Specialty Start Date End Date Heavenly Walters MD [address] [place], [place] [phone] PCP - General Internal Medicine 09/30/24 Blank Gilliam [facility] [address], [place] [address] Consulting Physician Urology 03/13/23 documented as of this encounter
--- OUTSIDE RECORDS SUMMARY | 2024-12-20 11:42 | XMS_ITS | Encounter Summary ---
Author Organization [employer] Address [address] [place] [address] 7 [place] [address] Care Team Providers Care Accounts Payable Clerk Name Role Phone Glo Delgadillo MD Primary Care Provider [phone] Heavenly Walters MD Primary Care Pro vider Reason for Visit * Reason Comments Med Refill Encounter Details Date Type Department Care Team ([facility] Contact Info) Description 11/21/2022 Refill [facility] [address] [place], [place] [phone] Michelle Holland MD [address] [place] [address] Anxiety Social History Tobacco Use Types Packs/Day [...] Upcoming Encounters Date Type Department Care Team ([facility] Contact Info) Description 04/19/2025 1:00 PM EST Office Visit [facility] [address] [place], [place] [phone] Violetta Cannon OD [address] [place] [address] documented as of this encounter Visit Diagnoses Diagnosis Anxiety Anxiety state, unspecified documented in this encounter Additional Health Concerns Assessment Noted Time PHQ-9 Depression Total Score: 1 04/18/19 23 3:01 PM EST documented as of this encounter Care Teams Accounts Payable Clerk Relationship Specialty Start Date End Date Glo Delgadillo MD [address] [place] [address] PCP - General Family Medicine 12/18/20 09/29/24 Heavenly Walters MD [address] [place] [address] PCP - General Internal Medicine 09/30/24 Blank Gilliam, [facility] [address], [place] [address] Consulting Physician Urology 03/13/23 documented as of this encounter
--- OUTSIDE RECORDS SUMMARY | 2024-12-20 11:42 | XMS_ITS | Encounter Summary ---
Author Organization [id number] Address [address] [facility] 7t [place] [address] Care Team Providers Care Glass Robot Operator Name Role Phone Heavenly Walters MD Primary Care Pro vider Encounter Details Date Type Department Care Team ([facility] st Contact Info) Description 12/15/2024 Telephone [facility] [address] [place] [address] Heavenly Walters MD [address] [place] [address] Social History Tobacco Use Types Packs/Day Years [...] encounter Miscellaneous Notes * Telephone Encounter - Sara Daily MA - 12/15/2024 2:41 PM EDT Chart Prep Labs: not done Images: not done Screenings: Foot Exam Vaccines due: Covid Due and Flu Due Referrals: Completed Overdue care gaps: A1C and Glucose documented in this encounter Plan of Treatment Upcoming Encounters Date Type Department Care Team (Late st Contact Info) Description 04/19/2025 1:00 PM EST Office Visit [facility] [address] [place] [address] Violetta Cannon, OD [address] [place] [address] documented as of this encounter Visit Diagnoses Not on filedocumented in this encounter Additional Health Concerns Assessment Noted Time PHQ-9 Depression Total Score: 0 10/01/19 1:47 PM EDT documented as of this encounter Care Teams Glass Robot Operator Relationship Specialty Start Date End Date Heavenly Walters MD [address] [place] [address] PCP - General Internal Medicine 09/30/24 Blank [address] Res[address] Gilliam, [address], [place] [address] Consulting Physician Urology 03/13/23 documented as of this encounter
--- OUTSIDE RECORDS SUMMARY | 2024-12-20 11:42 | XMS_ITS | Encounter Summary ---
Author Organization [employer] Address [address] 7[address] [place] [address] Care Team Providers Care Small Wind Energy Installer Name Role Phone Glo Delgadillo MD Primary Care Provider [phone] Heavenly Walters MD Primary Care Pro vider Encounter Details Date Type Department Care Team (Late st Contact Info) Description 03/24/2024 Orders Only [facility] [address] [place], [place] [phone] Doreen nAderson MD [address] [place], [place] [phone] Social History Tobacco Use Types Packs/Day Years [...] is your housing situation today? I have alondramarianna tello 01/06/[address] you [...] Description 04/19/2025 1:00 PM EST Office Visit [facility] [address] [place] [address] Davis, Violetta, OD [address] [place] [address] documented as of this encounter Procedures Procedure Name Priority Date/Time Associated Diagnosis Comments US BLADDER Routine 03/25/2024 3:01 PM EST documented in this encounter Results * US BLADDER (03/25/2024 3:01 PM EST) Anatomical Region Laterality Modality Abdomen Ultrasound 03/25/2024 3:01 PM EST Narrative 03/25/2024 4:10 PM EST [address] [address] Ultrasound Report Signed Patient: Washington Key MR#: [id number] : 1945 Acct:[id number] Age/Sex: 79 / M ADM Date: 03/25/24 Loc: HO.US Attending Dr: Doreen Anderson MD Ordering Physician: Doreen Anderson MD Date of Service: 03/25/24 Procedure(s): US bladder Accession Number(s): [id number] cc: Doreen Anderson MD; Glo Delgadillo MD [...] by: Adriano Lee MD 03/25/2024 04:08 PM [facility] Dictated By: Adriano Lee MD Signed By: <Electronically signed by Adriano Lee MD in OV> 03/25/24 1608 DD/ 1501 TD/TT: 03/25/24 1511 Bread Wrapping Machine Feeder: Procedure Note Donotuseinterpreter, Image - 03/25/2024 [place] [address] Ultrasound Report Signed Patient: Washington Key AMR#: [id number] : 6Acct:[id number] Age/Sex: 79 / MADM Date: 03/25/24 Loc: HO.US Attending Dr: Doreen Anderson MD Ordering Physician: Doreen Anderson MD Date of Service: 03/25/24 Procedure(s): US bladder Accession Number(s): [id number] cc: Doreen Anderson MD; Glo Delgadillo MD [...] Lee MD 03/25/2024 04:08 PM EST RP Workstation: [id number] Dictated By: Adriano Lee MD Signed By: <Electronically signed by Adriano Lee MD in OV> 03/25/24 1608 DD/ 1501 TD/TT: 03/25/24 1511 Bread Wrapping Machine Feeder: us Doreen Anderson MD IMG US PROCEDURES Final Resul t documented in this encounter Visit Diagnoses Not on filedocumented in this encounter Additional Health Concerns Assessment Noted Time PHQ-9 Depression Total Score: 3 05/15/19 24 3:05 PM EST documented as of this encounter Care Teams Small Wind Energy Installer Relationship Specialty Start Date End Date Glo Delgadillo MD [address] [place] [address] PCP - General Family Medicine 12/18/20 09/29/24 Heavenly Walters MD [address] [place] [address] PCP - General Internal Medicine 09/30/24 Blank Gilliam, [facility] [address], [place] [address] Consulting Physician Urology 03/13/23 documented as of this encounter
--- OUTSIDE RECORDS SUMMARY | 2024-12-20 11:42 | XMS_ITS | Encounter Summary ---
Author Organization [employer] Address [address] [place] [address] Care Team Providers Care Forge Tender Name Role Phone Heavenly Walters MD Primary Care Pro vider Encounter Details Date Type Department Care Team (Latest Contact Info) Description 12/16/2024 Travel Social History Tobacco Use Types Packs/Day [...] housing situation today? I have alondramarianna tello 07/22/[address] you [...] 1:00 PM EST Office Visit [facility] [address] [place], [place] [phone] Davis, Violetta, OD [address] [place] [address] documented as of this encounter Visit Diagnoses Not on filedocumented in this encounter Additional Health Concerns Assessment Noted Time PHQ-9 Depression Total Score: 0 10/01/19 25 1:47 PM EDT documented as of this encounter Care Teams Forge Tender Relationship Specialty Start Date End Date Heavenly Walters MD [address] [place] [address] PCP - General Internal Medicine 09/30/24 Blank Gilliam, [place] [address], [place] [address] Consulting Physician Urology 03/13/23 documented as of this encounter
--- OUTSIDE RECORDS SUMMARY | 2024-12-20 11:42 | XMS_ITS | Clinical Summary ---
Author Organization [employer] Address [address] [facility] [address] [place] [address] Care Team Providers Care Body Shop Supervisor Name Role Phone Heavenly Walters MD [...] 2 diabetes mellitus with hyperglycemia, unspecified whether custodial insulin use (HCC) 1 Units 2 times daily. 1 unit [...] times daily. 200 g 08/25/19 24 Active polyethylene glycol, PEG, 3350 (Glycolax) [...] THE MORNING AND EVENING 60 capsule 5 07/31/19 25 Active lisinopril 20 MG tablet TAKE ONE TABLET EVERY MORNING 30 tablet 5 07/31/19 25 Active Stimulant Laxative 8.6-50 MG tabletIndicatio ns:Constipation , unspecified constipation type TAKE TWO TABLETS EVERY DAY AT BEDTIME 60 tablet 5 07/31/19 25 Active ferrous gluconate (Fergon) 324 (38 Fe) MG tablet Take 1 tablet (324 mg) by mouth with breakfast. 90 tablet 1 08/05/19 25 Active Incruse Ellipta 62.5 MCG/ACT aerosol powderIndicatio ns:Chronic obstructive pulmonary disease, unspecified COPD type (CMS/HCC) ([facility]) INHALE 1 PUFF DAILY AT THE SAME TIME EACH DAY 30 each 5 08/27/19 25 Active metFORMIN (Glucophage) 500 MG tabletIndicatio ns:Type 2 diabetes mellitus with hyperglycemia, unspecified whether long wall mining machine helper insulin use ([facility]) TAKE ONE TABLET IN THE MORNING AND EVENING WITH MEALS 180 tablet 08/27/19 25 Active melatonin 5 MG tablet TAKE ONE TABLET EVERY NIGHT AT BEDTIME 90 tablet 1 09/24/19 25 Active Ventolin HFA 108 (90 Base) MCG/ACT inhaler Inhale 2 puffs every 6 (six) hours if needed for wheezing. Pt moving [facility] to [facility] thanks 18 g 2 10/01/19 25 Active cholecalciferol VITAMIN D (Vitamin D-3) 50 MCG (1999 UT) capsule TAKE ONE CAPSULE EVERY MORNING 90 capsule 1 11/13/19 25 Active Lancets (OneTouch Delica Plus [id number]) miscIndications :Type 2 diabetes mellitus with hyperglycemia, without long-term current use of insulin ([facility]) TEST BLOOD SUGAR TWICE DAILY 100 each 11/20/19 25 Active OneTouch Ultra Test test stripIndication s:Type 2 diabetes mellitus with hyperglycemia, without long-term current use of insulin ([facility]) TEST BLOOD SUGAR TWICE DAILY 100 strip 11/20/19 25 Active omeprazole (PriLOSEC) [address] capsule Take 1 capsule (20 mg) by mouth before breakfast. Do not crush or chew. 90 capsule 12/17/19 25 2025 Active psyllium (Metamucil Smooth Texture) 58.6 % powder Take 5.12 g (3 g of fiber) by mouth 2 times daily. 283 g 2 12/17/19 25 2025 Active omeprazole (PriLOSEC) [address] capsule TAKE TWO CAPSULES EVERY MORNING 60 capsule 5 07/31/19 25 2024 Discontinued(R eorder (will not trigger notification to Pharmacy)) fluticasone (Flonase) 50 MCG/ACT nasal sprayIndication s:Chronic obstructive pulmonary disease, unspecified COPD type (CMS/HCC) (HCC) INHALE 2 SPRAYS IN EACH NOSTRIL ONCE DAILY 16 mL 5 08/27/19 25 2024 Discontinued(O ther) LORazepam (Ativan) 0.5 MG tabletIndicatio ns:Anxiety Week 1: Reduce to twice daily dosing,Week 2: Reduce to once daily dosing Week 3: Alternate day dosing for 14 days , then discontinue 28 tablet 10/01/192024 Discontinued(O ther) Active Problems Problem Noted Date Diagnosed Date Numbness and tingling 09/30/2024 Anxiety 07/22/2024 Assessment & Plan (07/22/2024 12:31 [...] 06/04/19 25 MCI (mild cognitive impairment) 12/03/2023 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 During examination noticed hard bumps he stated were itchy. I have prescribed Triamcinolone 0.5% ointment. PAC (premature atrial contraction) 03/13/2023 Poor balance [...] Maxillofacial Surgery. Residual hemorrhoidal skin tags 04/03/2022 Type 2 diabetes mellitus with hyperglycemia 02/15 [...] control. Labs sent Malignant tumor of prostate (CMS/HCC) 07/19/2021 Tremor 04/06/2015 Seborrheic dermatitis 04/06/2015 Assessment & Plan (08/25/2023 10:05 AM EDT): Visible Dermatitis, prescribing Nizoral for treatment of symptoms. Relevant Medications Ketoconazole (Nizoral) 2% shampoo. Assessment & Plan (10/29/2022 4:45 PM EDT): Concerns of scalp itchiness. Will send derma-soothe 0.01% oil and ketoconazole 2% shampoo for symptoms relief. Hemospermia 04/06/2015 Gastroesophageal reflux disease without esophagi tis 04/06/2015 Depressive disorder 04/06/2015 Chronic obstructive lung disease 04/06/2015 Constipation 04/06/2015 Assessment & Plan (04/03/2022 12:46 PM EST): Will trial miralax and senokot-S. Recommended lifestyle modification. Benign prostatic hyperplasia without lower urinary tract symptoms 04/06/2015 Allergic rhinitis 04/06/2015 Resolved Problems Problem Noted Date Diagnosed Date Resolved Date Decreased sensation of foot 08/25/2023 09/30/2024 Assessment & Plan (08/25/2023 10:06 AM EDT): Foot Exam presented decreased sensation of foot. Referral to [employer] for further evaluation. Encounters Date Type Department Care Team Description 12/16/2024 11:15 AM EDT Office Visit [address] [phone] Heavenly Walters MD Numbness (Primary Dx); Type 2 diabetes mellitus with hyperglycemia, unspecified whether long wall mining machine helper insulin use (HCC); Encounter for vaccination; Encounter for immunization; Dietary counseling; Exercise counseling 12/16/[address] [address] Sarah Cobos, LISA Care Coordination; VNA Referral; Appointment Request 12/16/2024 Travel 12/15/[address] [address] Heavenly Walters MD 12/03/2024 11:00 AM EDT Clinical Support [address] [address] Yi Burgess RN Long-term current use of benzodiazepine (Primary Dx) 12/03/2024 Travel 11/19/2024 Refill [facility] [address] [place] [address] Glo Delgadillo MD Type 2 diabetes mellitus with hyperglycemia, without long-term current use of insulin ([facility]/HCC) 11/12/2024 Refill [facility] [address] [place] [address] Glo Delgadillo MD 10/15/2024 Telephone [facility] [address] [place] [address] Yi Burgess RN 10/08/[address] [address] Heavenly Walters MD SEP RECALL 10/07/2024 Telephone [facility] [address] [place] [address] Yi Burgess RN 10/04/2024 Orders Only [address] [address] Heavenly Walters MD Gait instability (Primary Dx) 10/04/[address] [address] Heavenly Walters MD Referral 09/30/2024 1:45 PM EDT Office Visit [address] [address] Heavenly Walters MD Anemia, unspecified type (Primary Dx); Health care maintenance; Poor balance; Chronic obstructive pulmonary disease, unspecified COPD type ([facility]/HCC); Malignant tumor of prostate ([facility]); Anxiety; Dementia with other behavioral disturbance, unspecified dementia severity, unspecified dementia type ([facility]); Encounter for immunization; Long-term current use of benzodiazepine; Hypertension, unspecified type; Type 2 diabetes mellitus with hyperglycemia, unspecified whether long wall mining machine helper insulin use ([facility]); Numbness and tingling 09/30/2024 Travel 09/29/[address] [address] Glo Delgadillo MD Chart Prep 09/23/2024 1:30 PM EDT Clinical Support [facility] [address] [place] [address] Yi Burgess RN Anxiety 09/23/2024 Patient Outreach [facility] [address] [place] [address] Glo Delgadillo MD Pre-visit Planning ([facility] unable to reach [facility] ) 09/23/2024 Telephone [facility] [address] [place] [address] Yi Burgess RN 09/23/2024 Travel 09/22/2024 Refill [facility] [address] [place] [address] Glo Delgadillo MD Anxiety 09/22/2024 Refill [facility] [address] [place] [address] Leodan Yap MD from Last 3 Months Immunizations Immunization Administration Dates Next Due Hep B, adult 09/02/2017,04/25/2017,03/27/2017 Influenza High-dose Quadriva lent Preservative Free 12/13/2021,12/18/2020 Influenza injectable quadriv alent IIV4 with preservative 01/30/2017,02/15/2016,12/02/2014 Influenza injectable quadriv alent preservative free 05/15/2023 Influenza, High Dose Seasona l, Preservative Free 12/16/2024,12/03/2023,02/02/2019,12/01 Influenza, IIV3, injectable 12/11/2010 Influenza, Split (incl. mayuri fied surface antigen) 12/09/2012,11/25/2011 Moderna Covid-19 Vaccine 12+ 03/28/2021,06/23/19 21,05/25/2020 Pfizer Covid-19 Vaccine 12+ 12/16/2024 Pneumococcal Conjugate PCV 13 04/06/2015 Pneumococcal Conjugate [...] Mass Index 25.18 12/16/2024 11:25 AM EDT Plan of Treatment Upcoming Encounters Date Type Department Care Team (Late st Contact Info) Description 04/19/2025 1:00 PM EST Office Visit [facility] [address] [place], [place] [phone] Davis, Violetta, OD [address] [place], [place] [phone] Health Maintenance Due Date Last Done Comments Diabetes: Foot Exam 08/24/2024 08/25/2023, 08/25/2023, 08/25/2023, Additional history exists Diabetes: Hemoglobin A1C 03/18/2025 025, 07/22/2024, 03/24/2024, Additional history exists COVID-19 Vaccine ( season) 2025 12/16/2024, 03/28/2021, 06/22/2020, Additional history exists Alcohol/Substance Use Screening 07/22/2025 07/22/2024 SDOH Screening 07/22/2025 07/22/2024 Lipid Panel 07/29/2025 07/29/2024, 08/15, 10/30/2022, Additional history exists Depression Screening 09/30/2025 09/30/2024, 10/01/19 25 Diabetes: Urine Protein Screening 09/30/2025 09/30/2024, 10/30/2022, 05/29/2021, Additional history exists Eye Exam 12/01/2025 12/02/2023, 11/15, 12/02/2023, Additional history exists Tobacco Screening 12/16/2025 12/16/2024 DTaP/Tdap/Td Vaccines (3 - Td or Tdap) 05/14/2033 05/15/2023, 06/16/2012, 12/05/1998 Hepatitis B Vaccines Completed 09/02/2017, 04/25/2017, 03/27/2017 Zoster Vaccines Completed 09/28/2019, 04/18, 04/06/2015 Hepatitis C Screening Completed 08/29/2023 RSV Patients and Patients Aged 60 years or older Completed 07/22/2024 Pneumococcal Vaccine: 50+ Years Completed 09/30/2024, 04/06/2015, 05/10/2013 Influenza Vaccine Completed 12/16/2024, , 05/15/2023, Additional history exists HIB Vaccines Aged Out No longer eligi [...] Procedure Name Priority Date/Time Associated Diagnosis Comments CBC Routine 12/20/2024 10:29 AM EDT Anemia, unspecified type POCT GLYCATED HEMOGLOBIN, TOTAL Routine 12/16/2024 11:29 AM EDT Type 2 diabetes mellitus with hyperglycemia, unspecified whether custodial insulin use (HCC) POCT GLUCOSE Routine 12/16/2024 11:26 AM EDT Type 2 diabetes mellitus with hyperglycemia, unspecified whether long wall mining machine helper insulin use (HCC) POCT SHERRY-14 URINE DRUG SCREEN Routine 12/03/2024 11:43 AM EDT Long-term current use of benzodiazepine ALBUMIN, RANDOM URINE W/CREATININE Routine 09/30/2024 3:13 PM EDT Health care maintenance POCT SHERRY-14 URINE DRUG SCREEN Routine 09/23/2024 1:41 PM EDT Anxiety LIPID PANEL, STANDARD Routine 07/29/2024 11:34 AM EDT Type 2 diabetes mellitus with hyperglycemia, unspecified whether long wall mining machine helper insulin use (CMS/HCC) HEPATITIS C AB W/REFL TO HCV RNA, QN, PCR Routine 08/29/2023 2:28 PM EDT Type 2 diabetes mellitus with hyperglycemia, unspecified whether custodial insulin use (CMS/HCC) HP LINK DIABETIC FOOT EXAM Routine 10/29/2022 from Last 3 Months or Most Recently Relevant to Health Maintenance Results * (ABNORMAL) CBC (12/20/2024 10:29 AM EDT) White Blood Count 3.9(L) 4.8 - 10.8 X10*3/uL [facility] Red Blood Count 4.03(L) 4.60 - 5.80 X10*6/uL [facility] Hemoglobin 12.3(L) 14.0 - 18.0 g/dl [facility] Hematocrit 36.4(L) 42.0 - 52.0 % [facility] Mean Corpuscular Volume 90.3 80.0 - 98.0 fL [facility] Mean Corpuscular Hemoglobin 30.5 27.0 - 33.0 pg [facility] Mean Corpuscular HGB Conc 33.8 31.0 - 36.0 g/dl [facility] Red Cell Distribution Width 12.1 11.0 - 16.0 % [facility] Platelet Count 184 160 - 400 X10*3/uL [facility] Mean Platelet Volume 9.4 9.4 - 12.4 fL [facility] NRBC Pct Auto 0.0 0.0 - 0.2 /100WBC [facility] NRBC Abs Auto 0.000 0.0 - 0.012 X10*3/uL [facility] Blood Venous blood specimen / Unknown 12/20/2024 10:29 AM EDT 12/20/2024 11:22 AM EDT Heavenly Gardner MD LAB BLOOD ORDERAB LES Final Result [facility] [address] [place] [phone] * (ABNORMAL) POCT Hgb A1c (12/16/2024 11:29 AM EDT) Pathologist [facility] Hemoglobin A1C 5.9(A) 4.0 - 5.7 % QC Media Lot # [id number] Lot# Expiration Date [id number] Blood 12/16/2024 11:2 9 AM EDT Heavenly Gardner MD POINT OF CARE EVA T ENTER/EDIT ORDERABLES Final Result * (ABNORMAL) POCT Glucose (12/16/2024 11:26 AM EDT) Pathologist [facility] Glucose Blood, POC 225(A) 60 - 200 mg/dL QC Media Lot # [id number] Lot# Expiration Date [id number] Blood Capillary blood specimen / Unknown 12/16/2024 11:26 AM EDT Heavenly Gardner MD POINT OF CARE EVA T ENTER/EDIT ORDERABLES Final Result * POCT SHERRY-14 Urine Drug Screen (12/03/2024 11:43 AM EDT) Only the most recent of2 resultswithin the time period is included. [facility] THC Negative Negative Cocaine Screen, Urine Negative Negative Opiate Screen, Urine Negative Negative Methamphetamine Screen Urine Negative Negative Amphetamine Screen, Urine Negative Negative Benzodiazepines Screen, Urine Negative Negative Barbiturate Screen, Urine Negative Negative Methadone Screen, Urine Negative Negative Buprenophine Screen, Urine Negative Negative TCA, Urine Negative Negative MDMA Urine Negative Negative ng/mL Oxycodone Screen, Urine Negative Negative Phencyclidine (PCP), Urine Negative Negative Propoxyphene, Urine Negative Negative Fentanyl, Urine Negative Negative Urine Urine specimen obtained by clean catch procedure / Unknown 12/03/2024 11:43 AM EDT Narrative Yi Burgess RN - 12/03/2024 11:43 AM EDT .UTOX cup Lot#[id number] Exp. 12/21/25 Internal Pass Control Heavenly Gardner MD POINT OF CARE EVA T ENTER/EDIT ORDERABLES Final Result * (ABNORMAL) Albumin, Random Urine W/Creatinine (09/30/2024 3:13 PM EDT) Pathologist [facility] Creatinine, Urine 95.04 mg/dL [facility] Microalbumin Urine 29.0 mg/L H [facility] Microalbum Creatinine Ratio Ur 30.5(H) <30 ug/mg cr [facility] Comment:Albumin/Creatinine R atio Reference Ranges: Normal: < 30 ug/mg creatinine Microalbuminuria: 30 - 300 ug/mg creatinineClinical Albuminuria: > 300 ug/mg creatinine Urine (Urine, Random) 09/30/2024 3:13 PM EDT 09/30/2024 4:13 PM EDT us Heavenly Gardner MD LAB URINE ORDERAB LES Final Result Performing Organization Address [facility] Co de Phone Number [facility] [address] [place] [phone] * (ABNORMAL) Lipid Panel, Standard (07/29/2024 11:34 AM EDT) Triglycerides 88 <150 mg/dL [facility] Comment:Desirable Triglyceri de: less than 150 mg/dLBorderline High Triglyceride 150-199 mg/dLHigh Triglyceride: 200-499 mg/dLVery High Triglyceride: greater than or equal to 5OO mg/dL Cholesterol 135 <200 mg/dL [facility] Comment:Desirable Cholestero l: less than 200 mg/dLBorderline High Cholesterol: 200-239 mg/dLHigh Cholesterol: greater than 239 mg/dL LDL Cholesterol Calculated 87 <100 mg/dL [facility] Comment:Desirable LDL: less than 100 mg/dLNear Optimal/Above Optimal LDL: 110- 129 mg/dLBorderline High LDL: 130-159 mg/dLHigh LDL: 160-189 mg/dLVery High LDL: greater than or equal to 190 mg/dL HDL Cholesterol 31(L) >40 mg/dL [facility] Comment:Desirable HDL: great er than 40 mg/dL Note: This HDL assay may give artificially low results in patients with liver disease. Blood Venous blood specimen / Unknown 07/29/2024 11:34 AM EDT 07/29/2024 12:05 PM EDT us Glo Delgadillo MD LAB BLOOD ORDERABLES Final Re sult [facility] [address] [place] [phone] * Hepatitis C Antibody with Reflex to HCV, RNA, Quantitative, Real-Time PCR (08/29/2023 2:28 PM EDT) Hepatitis C Antibody Nonreactive Nonreactive [facility] Comment:Antibodies to HCV no t detected; does not exclude early acuteHCV infection. Blood Venous blood specimen / Unknown 08/29/2023 2:28 PM EDT 08/29/2023 2:28 PM EDT us Glo Delgadillo MD LAB BLOOD ORDERABLES Final Re sult [facility] [address] [place] [phone] * (ABNORMAL) HP Diabetic Foot Exam (10/29/2022) us Glo Delgadillo MD HEALTH MAINTENANCE Final Resu lt from Last 3 Months or Most Recently Relevant to Health Maintenance Insurance [facility] RESIDENTIAL OPTIONS (HMO D-SNP) Care Teams Body Shop Supervisor Relationship Specialty Start Date End Date Heavenly Walters MD [address] [place] [phone] PCP - General Internal Medicine 09/30/24 Blank [address], [facility] [address], [place] [address] Consulting Physician Urology 03/13/23
[2024-12-20 12:11] LABS: Iron 116 mcg/dL (45-160); Percent Iron Saturation 45 % (15-50); Total Iron Binding Capacity 257 mcg/dL (228-428); Unsaturated Iron Binding 141 ug/dL
[2024-12-20 12:27] LABS: HBS Num1 0.00 mIU/mL (0-7.99); HBc Num1 0.07 S/CO (0.00-0.79); HBsAGNum1 0.30 S/CO (0.00-0.99); HIV Num 1 0.05 S/CO (0.00-0.99); Hepatitis B Surface Antigen Negative (Negative); Syphilis Screen Nonreactive (Nonreactive); ~HepC Num1 0.06 S/CO (0.00-0.79); ~Hepatitis B Surface Antibody NONREACTIVE (Nonreactive); ~Hepatitis C Antibody Nonreactive (Nonreactive)
[2024-12-20 12:29] LABS: Ferritin 68 ng/mL (20-250)
[2024-12-20 12:44] LABS: Folate 12.3 ng/mL (> or = 4.0); Vitamin B12 293 pg/mL (200-900)
[2024-12-20 16:43] LABS: CT PCR Urine NOT DETECTED (Not Detect.); NG PCR Urine NOT DETECTED (Not Detect.)
== END 2024-12-20 10:05 | disposition home or self-care (01) ==
LOC: HO.HHCL 10:04
PROVIDERS: PCP Student in an Organized Health Care Education/Training Program; Visit Provider Student in an Organized Health Care Education/Training Program
DX: Z00.00 Encounter for general adult medical examination without abnormal findings (principal); Z13.1 Encounter for screening for diabetes mellitus; Z13.21 Encounter for screening for nutritional disorder; D64.9 Anemia, unspecified
CPT/HCPCS: 36415; 82306; 82607; 82728; 82746; 83036; 83540; 85027; 86704; 86706; 86780; 86803; 87340; 87389; 87491; 87591

== ENCOUNTER 2025-01-29 10:53 | Outpatient (REF) | payer OTHER, SELFPAY ==
--- NOTE | ~2025-01-29 | MR_ITS ---
EXAMINATION: MR CERVICAL SPINE WITHOUT CONTRAST CLINICAL INFORMATION: Progressive numbness, left upper extremity. COMPARISON: Correlated to CT dated December 03, 2019. TECHNIQUE: MRI of the cervical spine was obtained using routine sequences without contrast. FINDINGS: Craniocervical junction is intact. Normal position of the cerebellar tonsils. No bone marrow STIR signal abnormality. Bone marrow inhomogeneity throughout the axial skeleton. Incomplete ankylosis C3 C5. Buckling deformity in the dorsal aspect of the thecal sac secondary to ligamentum flavum hypertrophy at C5-6. Multilevel marginal osteophyte formation and disc desiccation with endplate irregularities and decreased disc height at C5-6, C6-7. Grade 1 anterolisthesis C7-T1 and T1 to. S-shaped curvature of the cervical thoracic spine. C2-3: No disc herniation. Right neuroforamina and stenosis secondary to degenerative changes. C3-4: Left sided disc osteophyte complex formation resulting in ventral deformity of spinal cord. No cord signal abnormality. Bilateral neuroforamina narrowing. C4-5: Left-sided disc osteophyte compresses formation resulting in ventral deformity of spinal cord. No cord signal abnormality. Left neuroforamina and narrowing. C5-6: Broad-based disc osteophyte compresses formation hypertrophy of ligamentum flavum resulting in CSF effacement of the thecal sac flattening of the spinal cord. No gross cord signal abnormality. Bilateral neural foramina stenosis. C6-7: Broad-based base disc osteophyte compresses formation resulting in ventral deformity of the thecal sac. Bilateral neuroforamina narrowing. C7-T1: Broad-based disc osteophyte consummation. Facet joint and ligamentum flavum hypertrophy. Reduced AP diameter of the thecal sac. No neuroforamina stenosis. There is a 3 mm cystic structure beneath the left ligamentum flavum. No prevertebral compartment hematoma, mass or fluid collection. Flow-void signal within the main vessels is normal. Right vertebral artery is dominant. MR/MR cervical spine wo con IMPRESSION: Multilevel cervical thoracic spondylosis and scoliosis resulting in central spinal canal stenosis likely cord compression without cord edema and or myelopathy at C5-6. Electronically signed by: Rey Jacob MD 01/31/2025 07:44 AM EST
--- NOTE | ~2025-01-29 | MR_ITS ---
EXAMINATION: MR BRAIN WITHOUT CONTRAST CLINICAL INFORMATION: Dementia. Behavioral disturbances. COMPARISON: March 27, 2021. TECHNIQUE: MRI of the brain was obtained using routine sequences without contrast. FINDINGS: No restricted diffusion. No acute intracranial hemorrhage, mass effect, midline shift, hydrocephalus or herniation. Numerous hyperintense T2 FLAIR signal involving corpus striatum nuclei with a cribriform pattern. Old lacunar infarcts in the thalami, benigno and midbrain. Prominence of the extra-axial CSF spaces cerebral sulci and ventricles involving mostly the bifrontal bitemporal lobes. There is prominent to temporal horn right lateral ventricle secondary to probable volume loss in the hippocampi. Flow-void signal within the main cerebral vessels is normal. 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 Sellar/suprasellar region demonstrated no signal abnormality or gross masses. Craniocervical junction is intact with normal position of the cerebellar tonsils.. MR/MR head/brain wo con IMPRESSION: No acute ischemia/stroke. 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 Bifrontal bitemporal lobe atrophy. Electronically signed by: Rey Jacob MD 01/31/2025 07:04 AM EST
== END 2025-01-29 10:54 | disposition home or self-care (01) ==
LOC: HO.MRI 10:53
PROVIDERS: PCP Student in an Organized Health Care Education/Training Program; Visit Provider Student in an Organized Health Care Education/Training Program
DX: F03.918 Unspecified dementia, unspecified severity, with other behavioral disturbance (principal); R20.0 Anesthesia of skin
CPT/HCPCS: 70551; 72141

== ENCOUNTER → 2025-01-29 11:24 | Outpatient (BNV) | payer OTHER, SELFPAY | PROVIDERS: PCP Student in an Organized Health Care Education/Training Program; Visit Provider Radiology Diagnostic Radiology | DX: M47.812 Spondylosis without myelopathy or radiculopathy, cervical region (principal); F03.90 Unspecified dementia, unspecified severity, without behavioral disturbance, psychotic disturbance, mood disturbance, and anxiety; F98.9 Unspecified behavioral and emotional disorders with onset usually occurring in childhood and adolescence; R90.82 White matter disease, unspecified; G31.9 Degenerative disease of nervous system, unspecified | CPT/HCPCS: 70551; 72141 ==

== ENCOUNTER 2025-02-21 14:16 | Outpatient (REF) | payer OTHER, SELFPAY ==
--- NOTE | ~2025-02-21 | XR_ITS ---
EXAMINATION: XR CERVICAL SPINE CLINICAL INFORMATION: G95.9 - Disease of spinal cord, unspecified COMPARISON: 07/01/[address] spine cervical 12/03/2019. MR cervical [[id number]. TECHNIQUE: 4 views of the cervical spine were obtained, inclusive of flexion and extension lateral views. FINDINGS: There is a mild to moderate right convex scoliosis, with mild straightening of the normal lordosis. There is no fracture, compression deformity, or suspicious bone lesion. Notable sclerosis of the endplates is present at C5-6 and C6-7, with severe intervening disc degeneration. There is no fracture, compression deformity, or suspicious bone lesion. There is a subtle degenerative anterolisthesis of C4 on C5, C5 on C6. In flexion, these subluxations remain unchanged. In extension, this subluxations remain unchanged. There is no evidence of instability. Craniocervical junction and C1-2 articulation are intact and aligned. There are advanced degenerative changes in the anterior atlantoaxial joint. There are multilevel hypertrophic degenerative facet changes. There is no prevertebral soft tissue abnormality. XR/XR cervical spine 4V IMPRESSION: 1. No acute bony or soft tissue abnormalities. 2. Advanced cervical spondylosis most significant at C5-6 and C6-7. Right convex scoliosis. 3. No definite evidence of instability on flexion and extension views. Electronically signed by: Adriano Lee MD 02/21/2025 03:26 PM PETERSON GRAVES
== END 2025-02-21 14:17 | disposition home or self-care (01) ==
LOC: HO.HOSX 14:16
PROVIDERS: PCP Student in an Organized Health Care Education/Training Program; Referring Provider Student in an Organized Health Care Education/Training Program; Visit Provider Physician Assistant
DX: G95.9 Disease of spinal cord, unspecified (principal)
CPT/HCPCS: 72050; 99202

== ENCOUNTER 2025-02-21 14:16 | Outpatient (AMB) | payer OTHER, SELFPAY ==
--- NOTE | 2025-02-21 14:20 | A.SPINEOV_ITS ---
Intake Visit Reasons: left arm pain Intake Note: Mr. Key is here today c/o hand numbness, and leg numbness. MRI done at [facility]. Composing Machine Operator/Tender Required: Yes Composing Machine Operator/Tender Language: Naphthol Soaping Machine Operator Services: Composing Machine Operator/Tender Present Composing Machine Operator/Tender Name: Kaya Dumont LM Allergies No Known Allergies Allergy (Mild, Verified 02/21/25 14:31) NONE Assessment & Plan Assessment & Plan (1) Cervical myelopathy: Code(s): G95.9 - Disease of spinal cord, unspecified Category: Medical Plan Dear Dr Florin Gardner, Thank you for referring Mr Bonilla to our office today. This is a 79-year-old gentleman Bangladeshi-speaking diabetic, presents to the office today for evaluation of bilateral arm numbness and leg numbness. This visit was done with the help of bakery chef Kaya Cartwright. He reports the symptoms have been going on for 7 months. They have been getting steadily worse. He notices issues with fine motor movements like buttoning buttons. Also his balance has not been good. His hands feel like they are burning and very sensitive to touch. He underwent a cervical MRI showing spinal cord compression at C5-6 was referred today for an evaluation. PMH: The patient is a poor historian, he did not recall much of his medical history so I am going off strictly what is in the [place] records chart. He has a history of low blood pressure, syncope, thoracic aortic aneurysm, vertigo, COPD. Diabetes, his A1c was less than 6 when it was checked. History of memory impairment, BPH, tremor, GERD, constipation, left anterior fascicular block and premature atrial contractions. He is followed by Dr. Soriano. Social hx: He does not smoke, drink or use any recreational drugs Medications: He did not bring her medication list with him here today, the only medications I have access to either ones listed here in the [employer] chart. Allergies: Denies any allergies Physical exam: Awake alert oriented no acute distress, able to stand on his own independently, gait slightly unsteady, hands are weak rated 4/5, iliopsoas also 4/5. Rest of his motor examination is full. Diffusely hyperreflexic with Rodriguez's sign. Imaging review: Cervical MRI done at [place] shows degenerative changes a throughout the whole cervical spine, he has what looks like auto fusion of C3- C5. He has a disc bulge at C5-6 in combination with ligamentous hypertrophy causing moderate to severe central canal stenosis. At C6-7 he has degenerative disc disease with foraminal narrowing, C7-T1 degenerative disc disease with foraminal narrowing. Impression: 79-year-old diabetic gentleman, Bangladeshi-speaking, presents for evaluation of 7 months of progressive issues with numbness of both of his arms in his legs, burning pain in his hands, gait imbalance and loss of fine motor movement. While he does have diabetes, it is fairly well controlled. There could be a component of neuropathy overlapping his diagnosis, but the major thing I see is that there is significant spinal cord compression at C5-6. I think he has cervical myelopathy in light of his reflexes in his weakness in his hands and hip flexors. I am going to review his case with Dr. Townsend but I think he will need an anterior cervical fusion C5-6 to address this. I will get a set of flexion-extension x-rays to rule out any occult instability. He may need a preoperative risk evaluation from you prior to surgery. As of right now what is listed on his medication list, he should not need to stop anything prior to surgery, but he will get me an updated list and drop it off at the office ahead of time. He is followed by Dr. Soriano here at cardiology, so I think those notes will help our anesthesia team better understand some of his risk profile as well. Once I have a final plan from Dr. Townsend I will call the patient back and get him a surgical date. Thank you for allowing us to care for your patient. The total time spent with this visit with this patient was 45 minutes reviewing history, physical exam, cervical MRI imaging review, and implementation of treatment plan or further diagnostic testing Elder Townsend MD,PhD [facility] Orders: Orders XR cervical spine 4V Today G95.9 - Disease of spinal cord, unspecified Coding Level of Care Code New Pt Level 4 (14287) Diagnoses Cervical myelopathy G95.9
--- OUTSIDE RECORDS SUMMARY | 2025-02-21 23:13 | XMS_ITS | Encounter Summary ---
Author Organization [employer] Address [address] [place] [address] Care Team Providers Care Eap Consultant Name Role Phone Heavenly Walters MD Primary Care Pro vider Reason for Visit * Reason Comments Med Refill Encounter Details Date Type Department Care Team ([facility] Contact Info) Description 01/07/2025 Refill [facility] [address], [place] [phone] Glo Delgadillo MD [address] [place], [place] [phone] Social History Tobacco Use Types Packs/Day Years [...] Care Team (Late st Contact Info) Description 03/28/2025 3:00 PM EST Clinical Support [address] [address] 04/07/2025 1:15 PM EST Office Visit [address] [address] Heavenly Walters MD [address] [place] [phone] documented as of this encounter Visit Diagnoses Not on filedocumented in this encounter Additional Health Concerns Assessment Noted Time PHQ-9 Depression Total Score: 0 10/01/19 25 1:47 PM EDT documented as of this encounter Care Teams Eap Consultant Relationship Specialty Start Date End Date Heavenly Walters MD [address] [place] [id number] PCP - General Internal Medicine 09/30/24 Blank Gilliam, [address], [place] [address] Consulting Physician Urology 03/13/23 [email or web address] [facility] 12/24/24 documented as of this encounter
--- OUTSIDE RECORDS SUMMARY | 2025-02-21 23:13 | XMS_ITS | Encounter Summary ---
Author Organization [employer] Address [address] [place] [address] 7 [place] [address] Care Team Providers Care Nutritional Services Host Name Role Phone Glo Delgadillo MD Primary Care Provider [phone] Heavenly Walters MD Primary Care Pro vider Reason for Visit * Reason Comments Med Refill Encounter Details Date Type Department Care Team ([facility] Contact Info) Description 11/21/2022 Refill [facility] PEDS [address] [place], [place] [phone] Michelle Holland MD [address] [place] [address] Anxiety Social History Tobacco Use Types Packs/Day [...] Upcoming Encounters Date Type Department Care Team ([facility] Contact Info) Description 03/28/2025 3:00 PM EST Clinical Support [facility] [address] [place], [place] [phone] 04/07/2025 1:15 PM EST Office Visit [facility] [address] [place] [address] Heavenly Walters MD [address] [place] [address] documented as of this encounter Visit Diagnoses Diagnosis Anxiety Anxiety state, unspecified documented in this encounter Additional Health Concerns Assessment Noted Time PHQ-9 Depression Total Score: 1 04/18/19 23 3:01 PM EST documented as of this encounter Care Teams Nutritional Services Host Relationship Specialty Start Date End Date Glo Delgadillo MD [address] [place] [address] PCP - General Family Medicine 12/18/20 09/29/24 Heavenly Walters MD [address] [place] [address] PCP - General Internal Medicine 09/30/24 Blank Gilliam, [facility] [address], [place] [address] Consulting Physician Urology 03/13/23 [employer] [facility] 12/24/24 documented as of this encounter
--- OUTSIDE RECORDS SUMMARY | 2025-02-21 23:13 | XMS_ITS | Encounter Summary ---
Author Organization [employer] Address [address] [place] [address] Care Team Providers Care Radioactive Waste Disposal Dispatcher Name Role Phone Heavenly Walters MD Primary Care Pro vider Encounter Details Date Type Department Care Team ([facility] Contact Info) Description 02/21/2025 Orders Only [facility] External Provider, [facility] Social History Tobacco Use Types Packs/Day Years [...] Description 03/28/2025 3:00 PM EST Clinical Support [address] [address] 04/07/2025 1:15 PM EST Office Visit [address] [phone] Heavenly Walters MD [address] [place] [phone] documented as of this encounter Procedures Procedure Name Priority Date/Time Associated Diagnosis Comments XR CERVICAL SPINE 4V Routine 02/21/2025 2:58 PM EST documented in this encounter Results * XR CERVICAL SPINE 4V (02/21/2025 2:58 PM EST) Anatomical Region Laterality Modality Abdomen Radiographic Siria ging 02/21/2025 2:58 PM EST Narrative 02/21/2025 3:29 PM EST [facility] [address] [place] [address] XRay Report Signed Patient: Washington Key MR#: [id number] : 1945 Acct:[id number] Age/Sex: 79 / M ADM Date: 02/21/25 Loc: HO.HOSX Attending Dr: Elder MANZANO Ordering Physician: Elder Maier Date of Service: 02/21/25 Procedure(s): XR cervical spine 4V Accession Number(s): [id number] cc: Elder Maier; Heavenly Walters MD Reason for Exam: G95.9 - Disease of spinal cord, unspecified EXAMINATION: XR CERVICAL SPINE CLINICAL INFORMATION: G95.9 - Disease of spinal cord, unspecified COMPARISON: 07/01/[address] spine cervical 12/03/2019. MR cervical [1525. TECHNIQUE: 4 views of the cervical spine were obtained, inclusive of flexion and extension lateral views. FINDINGS: There is a mild to moderate right convex scoliosis, with mild straightening of the normal lordosis. There is no fracture, compression deformity, or suspicious bone lesion. Notable sclerosis of the endplates is present at C5-6 and C6-7, with severe intervening disc degeneration. There is no fracture, compression deformity, or suspicious bone lesion. There is a subtle degenerative anterolisthesis of C4 on C5, C5 on C6. In flexion, these subluxations remain unchanged. In extension, this subluxations remain unchanged. There is no evidence of instability. Craniocervical junction and C1-2 articulation are intact and aligned. There are advanced degenerative changes in the anterior atlantoaxial joint. There are multilevel hypertrophic degenerative facet changes. There is no prevertebral soft tissue abnormality. XR/XR cervical spine 4V IMPRESSION: 1. No acute bony or soft tissue abnormalities. 2. Advanced cervical spondylosis most significant at C5-6 and C6-7. Right convex scoliosis. 3. No definite evidence of instability on flexion and extension views. Electronically signed by: Adriano Lee MD 02/21/2025 03:26 PM [facility] Dictated By: Adriano Lee MD Signed By: <Electronically signed by Adriano Lee MD in OV> 02/21/25 1526 DD/ 1458 TD/TT: 02/21/25 1502 Lime Boiler: Procedure Note Donotuseinterpreter, Image - 02/21/2025 [facility] [address] [place] [address] Drive [address] [place] [address] XRay Report Signed Patient: Washington Key [facility]#: [id number] : 1945cct:[id number] Age/Sex: 79 / MADM Date: 02/21/25 Loc: HO.HOSX Attending Dr: Elder MANZANO Ordering Physician: Elder Maier Date of Service: 02/21/25 Procedure(s): XR cervical spine 4V Accession Number(s): [id number] cc: Elder Maier; Heavenly Walters MD Reason for Exam: G95.9 - Disease of spinal cord, unspecified EXAMINATION: XR CERVICAL SPINE CLINICAL INFORMATION: G95.9 - Disease of spinal cord, unspecified COMPARISON: 07/01/[address] spine cervical 12/03/2019. MR cervical [1525. TECHNIQUE: 4 views of the cervical spine were obtained, inclusive of flexion and extension lateral views. FINDINGS: There is a mild to moderate right convex scoliosis, with mild straightening of the normal lordosis. There is no fracture, compression deformity, or suspicious bone lesion. Notable sclerosis of the endplates is present at C5-6 and C6-7, with severe intervening disc degeneration. There is no fracture, compression deformity, or suspicious bone lesion. There is a subtle degenerative anterolisthesis of C4 on C5, C5 on C6. In flexion, these subluxations remain unchanged. In extension, this subluxations remain unchanged. There is no evidence of instability. Craniocervical junction and C1-2 articulation are intact and aligned. There are advanced degenerative changes in the anterior atlantoaxial joint. There are multilevel hypertrophic degenerative facet changes. There is no prevertebral soft tissue abnormality. XR/XR cervical spine 4V IMPRESSION: 1. No acute bony or soft tissue abnormalities. 2. Advanced cervical spondylosis most significant at C5-6 and C6-7. Right convex scoliosis. 3. No definite evidence of instability on flexion and extension views. Electronically signed by: Adriano Lee MD 02/21/2025 03:26 PM [facility] Dictated By: Adriano Lee MD Signed By: <Electronically signed by Adriano Lee MD in OV> 02/21/25 1526 DD/ 1458 TD/TT: 02/21/25 1502 Lime Boiler: [facility] External Provider IMG XR PROCEDURES Final Result documented in this encounter Visit Diagnoses Not on filedocumented in this encounter Additional Health Concerns Assessment Noted Time PHQ-9 Depression Total Score: 0 10/01/19 1:47 PM EDT documented as of this encounter Care Teams Radioactive Waste Disposal Dispatcher Relationship Specialty Start Date End Date Heavenly Walters MD [address] [place] [id number] PCP - General Internal Medicine 09/30/24 Blank [address] Reshma Gilliam, [facility] [address], [place] [address] Consulting Physician Urology 03/13/23 [email or web address] [facility] 12/24/24 documented as of this encounter
--- OUTSIDE RECORDS SUMMARY | 2025-02-21 23:13 | XMS_ITS | Clinical Summary ---
Author Organization [email or web address] Address [address] [facility] [address] [place] [address] Care Team Providers Care Extrusion Supervisor Name Role Phone Heavenly Walters MD Primary Care Pro vider Allergies No known active allergies Medications flecainide (Tambocor) 50 MG tablet Take 1 tablet by mouth 2 times daily. 2 Active dilTIAZem (Cardizem) 30 MG immediate release tablet Take 1 tablet by mouth 2 times daily. 3 Active hydroCHLOROthiazi de (Microzide) 12.5 MG capsule Take 1 capsule by mouth in the morning. 3 Active polyethylene glycol, PEG, 3350 (Glycolax) 17 GM/SCOOP powderIndications :Constipation, unspecified constipation type Take 17 g by mouth Once per day. 510 g 3 5 Active Incruse Ellipta 62.5 MCG/ACT aerosol powderIndications :Chronic obstructive pulmonary disease, unspecified COPD type (CMS/HCC) ([facility]) INHALE 1 PUFF DAILY AT THE SAME TIME EACH DAY 30 each 5 5 Active melatonin 5 MG tablet TAKE ONE TABLET EVERY NIGHT AT BEDTIME 90 tablet 1 5 Active Ventolin HFA 108 (90 Base) MCG/ACT inhaler Inhale 2 puffs every 6 (six) hours if needed for wheezing. Pt moving medbox to [facility] thanks 18 g 2 5 Active cholecalciferol VITAMIN D (Vitamin D-3) 50 MCG (2000 UT) capsule TAKE ONE CAPSULE EVERY MORNING 90 capsule 1 5 Active Lancets (OneTouch Delica Plus [id number]) miscIndications:T ype 2 diabetes mellitus with hyperglycemia, without long-term current use of insulin ([facility]) TEST BLOOD SUGAR TWICE DAILY 100 each 11 5 Active OneTouch Ultra Test test stripIndications: Type 2 diabetes mellitus with hyperglycemia, without long-term current use of insulin ([facility]) TEST BLOOD SUGAR TWICE DAILY 100 strip 11 Active omeprazole (PriLOSEC) [address] capsule Take 1 capsule (20 mg) by mouth before breakfast. Do not crush or chew. 90 capsule 5 12/17/19 Active psyllium (Metamucil Smooth Texture) 58.6 % powder Take 5.12 g (3 g of fiber) by mouth 2 times daily. 283 g 2 5 12/17/19 Active cyanocobalamin (Vitamin B-12) 500 MCG tablet Take 1 tablet (500 mcg) by mouth Once per day. 90 tablet 1 5 12/21/19 Active buPROPion XL (Wellbutrin XL) 150 MG 24 hr tablet TAKE ONE TABLET EVERY MORNING 28 tablet 5 Active docusate sodium (Colace) 100 MG capsule TAKE ONE CAPSULE IN THE MORNING AND EVENING 56 capsule 5 Active lisinopril 20 MG tablet TAKE ONE TABLET EVERY MORNING 28 tablet 5 Active Stimulant Laxative 8.6-50 MG tabletIndications :Constipation, unspecified constipation type TAKE TWO TABLETS EVERY DAY AT BEDTIME 56 tablet 5 Active metFORMIN (Glucophage) 500 MG tabletIndications :Type 2 diabetes mellitus with hyperglycemia, unspecified whether care home insulin use ([facility]) TAKE 1 TABLET BY MOUTH TWICE DAILY IN THE MORNING AND IN THE EVENING WITH FOOD 180 tablet Active ferrous gluconate (Fergon) 324 (38 Fe) MG tablet Take 1 tablet (324 mg) by mouth with breakfast. 90 tablet 1 Active tamsulosin (Flomax) 0.4 MG 24 hr capsule 5 Active Active Problems Problem Noted Date Diagnosed Date [...] control. Labs sent Malignant tumor of prostate ([facility]/HCC) 07/19/2021 Tremor 04/06/2015 Seborrheic dermatitis 04/06/2015 Assessment [...] presented decreased sensation of foot. Referral to Recycling Operator for further evaluation. Encounters Date Type Department Care Team Description 02/21/2025 Orders Only [facility] External Provider, [facility] 02/18/[address] [address] Heavenly Walters MD FYI 02/17/[address] [address] Heavenly Walters MD Referral 02/15/2025 Orders Only [address] [address] Heavenly Walters MD Prostate cancer (CMS/HCC) (HCC) (Primary Dx) 02/08/2025 Orders Only [address] [address] Heavenly Walters MD Numbness (Primary Dx); Poor balance; Abnormal MRI, cervical spine 02/08/2025 Results Follow-Up [facility] [address] [place] [address] Heavenly Walters MD MR Cervical Spine w/o Contrast 02/03/2025 Telephone [facility] [address] [place] [address] Heavenly Walters MD order 02/03/2025 Results Follow-Up [address] [address] Heavenly Walters MD Client Education Tracking, Fecal Globin By Immunochemistry 02/03/2025 Orders Only [facility] [address] [place] [address] Heavenly Walters MD Anemia, unspecified type (Primary Dx) 01/25/2025 Orders Only [facility] [address] [place] [address] Heavenly Walters MD 01/24/2025 Orders Only [facility] [address] [place] [phone] Stephan Hannon MD Urinary incontinence, urge (Primary Dx) 01/20/[address] [address] Heavenly Walters MD Care Coordination; Referral 01/10/[address] [address] Heavenly Walters MD vinnie recall 01/07/2025 Refill [facility] [address] [place] [address] Glo Delgadillo MD 01/06/2025 Refill [facility] [address] [place] [address] Heavenly Walters MD 01/06/2025 Refill [facility] [address] [place] [address] Glo Delgadillo MD Type 2 diabetes mellitus with hyperglycemia, unspecified whether care home insulin use (HCC) 01/05/2025 Refill [facility] [address] [place] [address] Glo Delgadillo MD Constipation, unspecified constipation type 12/29/2024 10:00 AM EDT Office Visit [facility] OPTOMET[facility] [address] [place] [address] Davis, Violetta, OD Diabetes type 2, no ocular involvement (HCC) (Primary Dx); Epiretinal membrane (ERM) of both eyes; Pseudophakia of both eyes; Meibomian gland disease of both eyes, unspecified eyelid; Presbyopia 12/29/2024 Telephone [facility] [address] [place] [phone] Heavenly Walters MD Medication Question 12/29/2024 Travel 12/27/2024 Telephone [facility] [place] [address] Heavenly Walters MD Verbal order; Durable Medical Equipment 12/22/2024 3:00 PM EDT Immunization [facility] [place] [address] Sarah Cobos, RN Encounter for immunization 12/22/2024 Travel 12/20/2024 Results Follow-Up [facility] [place] [address] Heavenly Walters MD CBC, Hemoglobin A1c, Hepatitis B Core Antibody, Total, Additional followed-up results: 9 12/20/2024 Orders Only [facility] [place] [address] Heavenly Walters MD 12/20/2024 Telephone [facility] [place] [address] Heavenly Walters MD Paperwork/Forms 12/16/2024 11:15 AM EDT Office Visit [facility] [place] [address] Heavenly Walters MD Numbness (Primary Dx); Type 2 diabetes mellitus with hyperglycemia, unspecified whether care home insulin use (HCC); Encounter for vaccination; Encounter for immunization; Dietary counseling; Exercise counseling 12/16/2024 Telephone [facility] [place] [address] Sarah Cobos, RN Care Coordination; VNA Referral; Appointment Request 12/16/2024 Travel 12/15/2024 Telephone [facility] [place] [address] Heavenly Walters MD 12/03/2024 11:00 AM EDT Clinical Support [facility] [place] [address] Yi Burgess, LISA Long-term current use of benzodiazepine (Primary Dx) 12/03/2024 Travel from Last 3 Months Immunizations Immunization Administration Dates Next Due Hep B, adult 09/02/2017,04/25/2017,03/27/2017 HepB-CpG 12/22/2024 Influenza High-dose Quadriva lent Preservative Free 12/13/2021,12/18/2020 [...] Description 03/28/2025 3:00 PM EST Clinical Support [facility] [address] [place] [address] 04/07/2025 1:15 PM EST Office Visit [facility] [address] [place] [address] Heavenly Walters MD [address] [place] [address] Health Maintenance Due Date Last Done Comments Diabetes: Foot Exam 08/24/2024 08/25/2023, 08/25/2023, 08/25/2023, Additional history exists Diabetes: Hemoglobin A1C 03/22/2025 025, 12/16/2024, 07/22/2024, Additional history exists COVID-19 Vaccine ( season) 2025 12/16/2024, 03/28/2021, 06/22/2020, Additional history exists Alcohol/Substance Use Screening 07/22/2025 07/22/2024 SDOH Screening 07/22/2025 07/22/2024 Lipid Panel 07/29/2025 07/29/2024, 08/15, 10/30/2022, Additional history exists Depression Screening 09/30/2025 09/30/2024, 10/01/19 25 Diabetes: Urine Protein Screening 09/30/2025 09/30/2024, 10/30/2022, 05/29/2021, Additional history exists Tobacco Screening 01/13/2026 01/13/2025 Eye Exam 12/29/2026 12/29/2024, 12/15, 12/29/2024, Additional history exists DTaP/Tdap/Td Vaccines (3 - Td or Tdap) 05/14/2033 05/15/2023, 06/16/2012, 12/05/1998 Zoster Vaccines Completed 09/28/2019, 04/18, 04/06/2015 RSV Patients and Patients Aged 60 years or older Completed 07/22/2024 Pneumococcal Vaccine: 50+ Years Completed 09/30/2024, 04/06/2015, 05/10/2013 Influenza Vaccine Completed 12/16/2024, , 05/15/2023, Additional history exists Hepatitis C Screening Completed 12/20/2024, 024 Hepatitis B Vaccines Completed 12/22/2024, 09/02/2017, 04/25/2017, Additional history exists Colorectal Cancer Screening Discontinued FIT Discontinued 01/25/2025 FOBT Discontinued 01/25/2025 CT Colonography Discontinued Colonoscopy Discontinued FIT DNA/Cologuard Discontinued HIB Vaccines Aged Out No longer eligi [...] on patient's age to complete this topic Sigmoidoscopy Discontinued Procedures Procedure Name Priority Date/Time Associated Diagnosis Comments XR CERVICAL SPINE 4V Routine 02/21/2025 2:58 PM EST MR CERVICAL SPINE WO CONTRAST Routine 01/29/2025 11:24 AM EST Numbness MR BRAIN WO CONTRAST Routine 01/29/2025 11:05 AM EST Dementia with other behavioral disturbance, unspecified dementia severity, unspecified dementia type (CMS/HCC) (HCC) FECAL GLOBIN BY IMMUNOCHEMISTRY Routine 01/25/2025 6:12 AM EST CLIENT EDUCATION TRACKING Routine 01/25/2025 6:12 AM EST OCT, RETINA - OU - BOTH EYES Routine 12/29/2024 10:00 AM EDT Epiretinal membrane (ERM) of both eyes CHLAMYDIA/TRICHOMONAS/ NEISSERIA GONORRHOEAE, PCR, URINE Routine 12/20/2024 12:28 PM EDT Health care maintenance FERRITIN Routine 12/20/2024 10:29 AM EDT Anemia, unspecified type IRON AND TOTAL IRON BINDING CAPACITY Routine 12/20/2024 10:29 AM EDT Anemia, unspecified type VITAMIN D,25-OH,TOTAL,IA Routine 12/20/2024 10:29 AM EDT Health care maintenance VITAMIN B12/FOLATE, SERUM PANEL Routine 12/20/2024 10:29 AM EDT Anemia, unspecified type Health care maintenance SYPHILIS SCREEN Routine 12/20/2024 10:29 AM EDT Health care maintenance HIV 1/2 ANTIGEN/ANTIBODY, FOURTH GENERATION W/RFL Routine 12/20/2024 10:29 AM EDT Health care maintenance HEPATITIS C AB W/REFL TO HCV RNA, QN, PCR Routine 12/20/2024 10:29 AM EDT Health care maintenance HEPATITIS B SURFACE ANTIGEN, EIA Routine 12/20/2024 10:29 AM EDT Health care maintenance HEPATITIS B SURFACE ANTIBODY, QUALITATIVE Routine 12/20/2024 10:29 AM EDT Health care maintenance HEPATITIS B CORE AB TOTAL Routine 12/20/2024 10:29 AM EDT Health care maintenance HEMOGLOBIN A1C Routine 12/20/2024 10:29 AM EDT Health care maintenance CBC Routine 12/20/2024 10:29 AM EDT Anemia, unspecified type POCT GLYCATED HEMOGLOBIN, TOTAL Routine 12/16/2024 11:29 AM EDT Type 2 diabetes mellitus with hyperglycemia, unspecified whether termite control servicer insulin use (HCC) POCT GLUCOSE Routine 12/16/2024 11:26 AM EDT Type 2 diabetes mellitus with hyperglycemia, unspecified whether termite control servicer insulin use (HCC) POCT SHERRY-14 URINE DRUG SCREEN Routine 12/03/2024 11:43 AM EDT Long-term current use of benzodiazepine ALBUMIN, RANDOM URINE W/CREATININE Routine 09/30/2024 3:13 PM EDT Health care maintenance LIPID PANEL, STANDARD Routine 07/29/2024 11:34 AM EDT Type 2 diabetes mellitus with hyperglycemia, unspecified whether care home insulin use ([facility]) HP LINK DIABETIC FOOT EXAM Routine 10/29/2022 from Last 3 Months or Most Recently Relevant to Health Maintenance Results * XR CERVICAL SPINE 4V (02/21/2025 2:58 PM EST) Anatomical Region Laterality Modality Abdomen Radiographic Siira ging 02/21/2025 2:58 PM EST Narrative 02/21/2025 3:29 PM EST [facility] [address] [place] [address] [place] [address] XRay Report Signed Patient: Washington Key MR#: [id number] : 1945 Acct:[id number] Age/Sex: 79 / M ADM Date: 02/21/25 Loc: PAM Attending Dr: Elder MANZANO Ordering Physician: Elder Maier Date of Service: 02/21/25 Procedure(s): XR cervical spine 4V Accession Number(s): [id number] cc: Elder Maier; Heavenly Walters MD Reason [...] by: Adriano Lee MD 02/21/2025 03:26 PM EST Dictated By: Adriano Lee MD Signed By: <Electronically signed by Adriano Lee MD in OV> 02/21/25 1526 DD/ 1458 TD/TT: 02/21/25 1502 Network Field Engineer: Procedure Note Donotuseinterpreter, Image - 02/21/2025 [facility] [address] [place] [address] [place] [address] XRay Report Signed Patient: Washington Key AMR#: [id number] : 6Acct:[id number] Age/Sex: 79 / MADM Date: 02/21/25 Loc: HO.HOSX Attending Dr: Elder MANZANO Ordering Physician: Elder Maier Date of Service: 02/21/25 Procedure(s): XR cervical spine 4V Accession Number(s): [id number] cc: Elder Maier; Heavenly Walters MD Reason [...] by: Adriano Lee MD 02/21/2025 03:26 PM EST Dictated By: Adriano Lee MD Signed By: <Electronically signed by Adriano Lee MD in OV> 02/21/25 1526 DD/ 1458 TD/TT: 02/21/25 1502 Network Field Engineer: [facility] External Provider IMG XR PROCEDURES Final Result * MR Cervical Spine w/o Contrast (01/29/2025 11:24 AM EST) Anatomical Region Laterality Modality Spine, C-spine Magnetic Resonan ce 01/29/2025 11:2 4 AM EST Narrative 01/31/2025 7:47 AM EST [address] [address] Magnetic Resonance Report Signed Patient: Washington Key MR#: [id number] : 1945 Acct:[id number] Age/Sex: 79 / M ADM Date: 01/29/25 Loc: HO.MRI Attending Dr: Heavenly Gardner MD Ordering Physician: Heavenly Walters MD Date of Service: 01/29/25 Procedure(s): MR cervical spine wo con Accession Number(s): [id number] cc: Heavenly Walters MD Reason for Exam: PROGRESSIVE NUMBNESS LT ARM , HANDS FEET EXAMINATION: MR CERVICAL SPINE WITHOUT CONTRAST CLINICAL INFORMATION: Progressive numbness, left upper extremity. COMPARISON: Correlated to CT dated December 03, 2019. TECHNIQUE: MRI of the cervical spine was obtained using routine sequences without contrast. FINDINGS: Craniocervical junction is intact. Normal position of the cerebellar tonsils. No bone marrow STIR signal abnormality. Bone marrow inhomogeneity throughout the axial skeleton. Incomplete ankylosis C3 C5. Buckling deformity in the dorsal aspect of the thecal sac secondary to ligamentum flavum hypertrophy at C5-6. Multilevel marginal osteophyte formation and disc desiccation with endplate irregularities and decreased disc height at C5-6, C6-7. Grade 1 anterolisthesis C7-T1 and T1 to. S-shaped curvature of the cervical thoracic spine. C2-3: No disc herniation. Right neuroforamina and stenosis secondary to degenerative changes. C3-4: Left sided disc osteophyte complex formation resulting in ventral deformity of spinal cord. No cord signal abnormality. Bilateral neuroforamina narrowing. C4-5: Left-sided disc osteophyte compresses formation resulting in ventral deformity of spinal cord. No cord signal abnormality. Left neuroforamina and narrowing. C5-6: Broad-based disc osteophyte compresses formation hypertrophy of ligamentum flavum resulting in CSF effacement of the thecal sac flattening of the spinal cord. No gross cord signal abnormality. Bilateral neural foramina stenosis. C6-7: Broad-based base disc osteophyte compresses formation resulting in ventral deformity of the thecal sac. Bilateral neuroforamina narrowing. C7-T1: Broad-based disc osteophyte consummation. Facet joint and ligamentum flavum hypertrophy. Reduced AP diameter of the thecal sac. No neuroforamina stenosis. There is a 3 mm cystic structure beneath the left ligamentum flavum. No prevertebral compartment hematoma, mass or fluid collection. Flow-void signal within the main vessels is normal. Right vertebral artery is dominant. MR/MR cervical spine wo con IMPRESSION: Multilevel cervical thoracic spondylosis and scoliosis resulting in central spinal canal stenosis likely cord compression without cord edema and or myelopathy at C5-6. Electronically signed by: Rey Jacob MD 01/31/2025 07:44 AM EST Dictated By: Rey Munoz MD Signed By: <Electronically signed by Rey Cobos MD in OV> 01/31/25 0744 DD/ 1124 TD/TT: 01/29/25 1144 Network Field Engineer: Procedure Note Donotuseinterpreter, Image - 01/31/2025 [place] [address] Magnetic Resonance Report Signed Patient: Washington Key#: [id number] : 6Acct:[id number] Age/Sex: 79 / MADM Date: 01/29/25 Loc: HO.MRI Attending Dr: Heavenly Gardner MD Ordering Physician: Heavenly Walters MD Date of Service: 01/29/25 Procedure(s): MR cervical spine wo con Accession Number(s): [id number] cc: Heavenly Walters MD Reason for Exam: PROGRESSIVE NUMBNESS LT ARM , HANDS FEET EXAMINATION: MR CERVICAL SPINE WITHOUT CONTRAST CLINICAL INFORMATION: Progressive numbness, left upper extremity. COMPARISON: Correlated to CT dated December 03, 2019. TECHNIQUE: MRI of the cervical spine was obtained using routine sequences without contrast. FINDINGS: Craniocervical junction is intact. Normal position of the cerebellar tonsils. No bone marrow STIR signal abnormality. Bone marrow inhomogeneity throughout the axial skeleton. Incomplete ankylosis C3 C5. Buckling deformity in the dorsal aspect of the thecal sac secondary to ligamentum flavum hypertrophy at C5-6. Multilevel marginal osteophyte formation and disc desiccation with endplate irregularities and decreased disc height at C5-6, C6-7. Grade 1 anterolisthesis C7-T1 and T1 to. S-shaped curvature of the cervical thoracic spine. C2-3: No disc herniation. Right neuroforamina and stenosis secondary to degenerative changes. C3-4: Left sided disc osteophyte complex formation resulting in ventral deformity of spinal cord. No cord signal abnormality. Bilateral neuroforamina narrowing. C4-5: Left-sided disc osteophyte compresses formation resulting in ventral deformity of spinal cord. No cord signal abnormality. Left neuroforamina and narrowing. C5-6: Broad-based disc osteophyte compresses formation hypertrophy of ligamentum flavum resulting in CSF effacement of the thecal sac flattening of the spinal cord. No gross cord signal abnormality. Bilateral neural foramina stenosis. C6-7: Broad-based base disc osteophyte compresses formation resulting in ventral deformity of the thecal sac. Bilateral neuroforamina narrowing. C7-T1: Broad-based disc osteophyte consummation. Facet joint and ligamentum flavum hypertrophy. Reduced AP diameter of the thecal sac. No neuroforamina stenosis. There is a 3 mm cystic structure beneath the left ligamentum flavum. No prevertebral compartment hematoma, mass or fluid collection. Flow-void signal within the main vessels is normal. Right vertebral artery is dominant. MR/MR cervical spine wo con IMPRESSION: Multilevel cervical thoracic spondylosis and scoliosis resulting in central spinal canal stenosis likely cord compression without cord edema and or myelopathy at C5-6. Electronically signed by: Rey Jacob MD 01/31/2025 07:44 AM EST Dictated By: Rey Munoz MD Signed By: <Electronically signed by Rey Cobos MDin OV> 01/31/25 0744 DD/ 1124 TD/TT: 01/29/25 1144 Network Field Engineer: us Heavenly Gardner MD IMG MRI PROCEDURE S Final Result * MR Brain w/o Contrast (01/29/2025 11:05 AM EST) Anatomical Region Laterality Modality Brain Magnetic Resonan ce 01/29/2025 11:0 5 AM EST Narrative 01/31/2025 7:07 AM EST [place] [address] Magnetic Resonance Report Signed Patient: [place] Key MR#: [id number] : 1945 Acct:[id number] Age/Sex: 79 / M ADM Date: 01/29/25 Loc: HO.MRI Attending Dr: Heavenly Gardner MD Ordering Physician: Heavenly Walters MD Date of Service: 01/29/25 Procedure(s): MR head/brain wo con Accession Number(s): [id number] cc: Heavenly Walters MD Reason for Exam: DEMENTIA, DEHAVORIAL DISTURBANCE EXAMINATION: MR BRAIN WITHOUT CONTRAST CLINICAL INFORMATION: Dementia. Behavioral disturbances. COMPARISON: March 27, 2021. TECHNIQUE: MRI of the brain was obtained using routine sequences without contrast. FINDINGS: No restricted diffusion. No acute intracranial hemorrhage, mass effect, midline shift, hydrocephalus or herniation. Numerous hyperintense T2 FLAIR signal involving corpus striatum nuclei with a cribriform pattern. Old lacunar infarcts in the thalami, benigno and midbrain. Prominence of the extra-axial CSF spaces cerebral sulci and ventricles involving mostly the bifrontal bitemporal lobes. There is prominent to temporal horn right lateral ventricle secondary to probable volume loss in the hippocampi. Flow-void signal within the main cerebral vessels is normal. 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 Sellar/suprasellar region demonstrated no signal abnormality or gross masses. Craniocervical junction is intact with normal position of the cerebellar tonsils.. MR/MR head/brain wo con IMPRESSION: No acute ischemia/stroke. 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 Bifrontal bitemporal lobe atrophy. Electronically signed by: Rey Jacob MD 01/31/2025 07:04 AM EST Dictated By: Rey Munoz MD Signed By: <Electronically signed by Rey Cobos MD in OV> 01/31/25 0704 DD/ 1105 TD/TT: 01/29/25 1122 Network Field Engineer: Procedure Note Donotuseinterpreter, Image - 01/31/[address] [address] Magnetic Resonance Report Signed Patient: [place] Key AMR#: [id number] : 6Acct:[id number] Age/Sex: 79 / MADM Date: 01/29/25 Loc: HO.MRI Attending Dr: Heavenly Gardner MD Ordering Physician: Heavenly Walters MD Date of Service: 01/29/25 Procedure(s): MR head/brain wo con Accession Number(s): [id number] cc: Heavenly Walters MD Reason for Exam: DEMENTIA, DEHAVORIAL DISTURBANCE EXAMINATION: MR BRAIN WITHOUT CONTRAST CLINICAL INFORMATION: Dementia. Behavioral disturbances. COMPARISON: March 27, 2021. TECHNIQUE: MRI of the brain was obtained using routine sequences without contrast. FINDINGS: No restricted diffusion. No acute intracranial hemorrhage, mass effect, midline shift, hydrocephalus or herniation. Numerous hyperintense T2 FLAIR signal involving corpus striatum nuclei with a cribriform pattern. Old lacunar infarcts in the thalami, benigno and midbrain. Prominence of the extra-axial CSF spaces cerebral sulci and ventricles involving mostly the bifrontal bitemporal lobes. There is prominent to temporal horn right lateral ventricle secondary to probable volume loss in the hippocampi. Flow-void signal within the main cerebral vessels is normal. 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 Sellar/suprasellar region demonstrated no signal abnormality or gross masses. Craniocervical junction is intact with normal position of the cerebellar tonsils.. MR/MR head/brain wo con IMPRESSION: No acute ischemia/stroke. 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 Bifrontal bitemporal lobe atrophy. Electronically signed by: Rey Jacob MD 01/31/2025 07:04 AM EST Dictated By: Rey Munoz MD Signed By: <Electronically signed by Rey Cobos MDin OV> 01/31/25 0704 DD/ 1105 TD/TT: 01/29/25 1122 Network Field Engineer: us Heavenly Gardner MD IMG MRI PROCEDURE S Final Result * Client Education Tracking (01/25/2025 6:12 AM EST) Client Education Tracking [facility] [employer] Comment: The Requisition we received did not include a [employer] account number. To prevent delays in testing and processing of your orders please provide the following information with every order submitted: [facility] account number and account name Client address Client phone and fax number NPI number of ordering physician along with the physician name. 01/25/2025 6:0 9 AM EST Narrative [facility] - 01/25/2025 6:12 AM EST FASTING: UNKNOWN Heavenly Gardner MD LAB BLOOD BANK ST ORDERABLES Final Result Performing Organization Address [facility] Co de Phone Number [facility] [address], [place] [address] [employer] [place] [facility] [address] [place] [address] * Fecal Globin By Immunochemistry (01/25/2025 6:12 AM EST) Fecal Globin By Immunochemistry SEE NOTE [employer] [place] [employer] Comment: FECAL GLOBIN BY IMMUNOCHEMISTRY Micro Number: [id number] Test Status: Final Specimen Source: Stool Specimen Quality: Inadequate Fecal Globin: Test not performed. Improper collection of the sample by patient. Reference Range: Not Detected NO COLLECTION DATE RECEIVED. WE HAVE USED THE DATE THE SPECIMEN WAS RECEIVED BY THIS LABORATORY THE COLLECTION DATE. IF THIS IS INCORRECT, PLEASE CONTACT CLIENT SERVICES. PHONE NUMBER: 01/25/2025 6:0 9 AM EST Narrative [facility] - 01/25/2025 6:12 AM EST FASTING: UNKNOWN Heavenly Gardner MD LAB BODY FLUIDS A ND STOOLS ORDERABLES Final Result Performing Organization Address [facility] Co de Phone Number [facility] [address], [place] [address] [facility] [place] [facility] [address] [place] [address] * OCT, Retina - OU - Both Eyes (12/29/2024 10:00 AM EDT) Violetta Swnason, OD - 01/14/2025 9:59 AM EDT Images from the original result were not included. OCT [facility] Optical Coherence Tomography Interpretation Report Measurements: OD OS Macula Thickness 254 microns 263 microns Test findings: OD: Normal foveal contour, patchy epiretinal membrane throughout the macula, no cystoid macular edema, no subretinal fluid OS: Normal foveal contour, mild epiretinal membrane superior to fovea, no cystoid macular edema, no subretinal fluid Impression and Plan: Epiretinal membrane in both eyes. No treatment necessary. Will monitor at his next exam. Violetta [place] OD OPHTH TOMOGRAPHY Final Result * Chlamydia/Trichomonas/Neisseria gonorrhoeae, PCR, Urine (12/20/2024 12:28 PM EDT) CT PCR, Urine NOT DETECTED Not Detect. [facility] Comment:A not detected test result does not exclude the possibilityof infection because test results can be affected byimproper specimen collection, concurrent antibiotic therapy,or the number of organisms in the specimen which may bebelow the sensitivity of the test. As with many diagnostictests, results from the Xpert CT/NG assay should beinterpreted in conjunction with other laboratory andclinical data available to the clinician.The Xpert CT/NG assay should not be used for the evaluationof suspected sexual abuse or for other medico-legalindications. Additional testing is recommended in anycircumstance when false positive or false negative resultscould lead to adverse medical, social or psychologicalconsequences. NG PCR, Urine NOT DETECTED Not Detect. [facility] Comment:A not detected test result does not exclude the possibilityof infection because test results can be affected byimproper specimen collection, concurrent antibiotic therapy,or the number of organisms in the specimen which may bebelow the sensitivity of the test. As with many diagnostictests, results from the Xpert CT/NG assay should beinterpreted in conjunction with other laboratory andclinical data available to the clinician.The Xpert CT/NG assay should not be used for the evaluationof suspected sexual abuse or for other medico-legalindications. Additional testing is recommended in anycircumstance when false positive or false negative resultscould lead to adverse medical, social or psychologicalconsequences. Urine (Urine, Random) 12/20/2024 12:28 PM EDT 12/20/2024 1:29 PM EDT Heavenly Gardner MD LAB URINE ORDERAB LES Final Result Performing Organization Address [facility]/ZIP Co de Phone Number [facility] [address] [place] [phone] * Syphilis Screen (12/20/2024 10:29 AM EDT) Syphilis Screen Nonreactive Nonreactive [facility] Blood 12/20/2024 10:2 9 AM EDT 12/20/2024 11:17 AM EDT Heavenly Gardner MD LAB BLOOD ORDERAB LES Final Result Performing Organization Address [facility] Co de Phone Number [facility] [address] [place] [phone] * Vitamin D, 25-Hydroxy, Total, Immunoassay (12/20/2024 10:29 AM EDT) Vitamin D 25-OH Total 57.5 >30 ng/mL [facility] Comment: Health Based Reference Values*< 20 ng/mL Vkfbeljai11-32 ng/mL Insufficient> 30 ng/mL Sufficient*Jack MEADOWS. N Engl J Med. 2007;357:266-280There is no well-established upper level of normal vitamin Dlevels. Some laboratories use 50 ng/mL as an upper limit ofnormal. However, toxicity is patient-dependent and may occurat any level. Careful correlation with the patient'spresentation is necessary and, if there is concern forvitamin D toxicity, treatment should be consideredirrespective of the serum level.Care must be taken in interpreting Vitamin D results fromdifferent laboratories and methodologies. Published datademonstrated that results from patients undergoinghemodialysis may show a negative bias when tested withvarious automated 25-OH vitamin D assays when compared toLC-MS/MS.When testing samples from patients whose predominant form ofVitamin D is Vitamin D2, such as patients receiving VitaminD2 supplementation, results that are subtherapeutic shouldbe confirmed with another method such as LC-MS/MS. Blood Venous blood specimen / Unknown 12/20/2024 10:29 AM EDT 12/20/2024 11:17 AM EDT us Heavenly Gardner MD LAB BLOOD ORDERAB LES Final Result Performing Organization Address [facility]/ZIP Co de Phone Number [facility] [address] [place] [phone] * Vitamin B12 (Cobalamin) and Folate Panel, Serum (12/20/2024 10:29 AM EDT) Vitamin B12 293 200 - 900 pg/mL [facility] Comment:NORMAL 200-900 PG/ML INDETERMINATE 160-199 PG/ML DEFICIENT < 160 PG/ML Folate 12.3 > or = 4.0 ng/mL [facility] Comment:Reference Values:> o r = 4.0 ng/mL< 4.0 ng/mL suggests folate deficiency Methotrexate, aminopterin and folinic acid(leucovorin) are chemotherapeutic agents whose molecularstructures are similar to folate; therefore, the Architectfolate assay cannot be used for patients using these drugs. Blood 12/20/2024 10:2 9 AM EDT 12/20/2024 11:17 AM EDT us Heavenly Gardner MD LAB BLOOD ORDERAB LES Final Result Performing Organization Address [facility] Co de Phone Number [facility] [address] [place] [phone] * Hepatitis C Antibody with Reflex to HCV, RNA, Quantitative, Real-Time PCR (12/20/2024 10:29 AM EDT) Hepatitis C Antibody Nonreactive Nonreactive [facility] Comment:Antibodies to HCV no t detected; does not exclude early acuteHCV infection. Blood Venous blood specimen / Unknown 12/20/2024 10:29 AM EDT 12/20/2024 11:17 AM EDT us Heavenly Gardner MD LAB BLOOD ORDERAB LES Final Result Performing Organization Address [facility]/ZIP Co de Phone Number [facility] [address] [place] [phone] * Iron And Total Iron Binding Capacity (12/20/2024 10:29 AM EDT) Iron 116 45 - 160 mcg/dL [facility] Total Iron Binding Capacity 257 228 - 428 mcg/dL [facility] Percent Iron Saturation 45 15 - 50 % [facility] Unsaturated Iron Binding 141 ug/dL [facility] Blood Venous blood specimen / Unknown 12/20/2024 10:29 AM EDT 12/20/2024 11:17 AM EDT us Heavenly Gardner MD LAB BLOOD ORDERAB LES Final Result Performing Organization Address [facility] Co de Phone Number [facility] [address] [place] [phone] * Hepatitis B surface antigen, EIA (12/20/2024 10:29 AM EDT) Hepatitis B Surface Ag Negative Negative [facility] Blood Venous blood specimen / Unknown 12/20/2024 10:29 AM EDT 12/20/2024 11:17 AM EDT us Heavenly Gardner MD LAB BLOOD ORDERAB LES Final Result Performing Organization Address City/[facility] Co de Phone Number [facility] [address] [place] [phone] * Hepatitis B Core Antibody, Total (12/20/2024 10:29 AM EDT) Hepatitis B Core Antibody Nonreactive Nonreactive [facility] Blood Venous blood specimen / Unknown 12/20/2024 10:29 AM EDT 12/20/2024 11:17 AM EDT Heavenly Gardner MD LAB BLOOD ORDERAB LES Final Result Performing Organization Address City/[facility]/ZIP Co de Phone Number [facility] [address] [place] [phone] * HIV-1/2 Antigen and Antibodies, Fourth Generation, with Reflexes (12/20/2024 10:29 AM EDT) [facility] HIV AB/AG Nonreactive Nonreactive [facility] Comment:HIV-1 p24 Ag and/or HIV-1/HIV-2 Ab not detected.A test result that is nonreactive does not exclude thepossibility of exposure to or infection with HIV-1 and/orHIV-2. Nonreactive results in this assay for individualswith prior exposure to HIV-1 and/or HIV-2 may be due toantigen and antibody levels that are below the limit ofdetection of this assay.The [place] HIV Ag/Ab Combo assay result andsupplemental assay results should be interpreted inconjunction with the patient's clinical presentation,history and other laboratory results. If the results areinconsistent with clinical evidence, additional testing issuggested to confirm the result. Blood Venous blood specimen / Unknown 12/20/2024 10:29 AM EDT 12/20/2024 11:17 AM EDT us Heavenly Gardner MD LAB BLOOD ORDERAB LES Final Result Performing Organization Address City/[facility]/ZIP Co de Phone Number [facility] [address] [place] [phone] * Hepatitis B Surface Antibody, Qualitative (12/20/2024 10:29 AM EDT) [facility] ~Hepatitis B Surface Antibody NONREACTIVE Nonreactive [facility] Comment:Nonreactive: < 8.00 mIU/mL Blood Venous blood specimen / Unknown 12/20/2024 10:29 AM EDT 12/20/2024 11:17 AM EDT us Heavenly Gardner MD LAB BLOOD ORDERAB LES Final Result Performing Organization Address [facility] Co de Phone Number [facility] [address] [place] [phone] * (ABNORMAL) CBC (12/20/2024 10:29 AM EDT) White Blood Count 3.9(L) 4.8 - 10.8 X10*3/uL [facility] Red Blood Count 4.03(L) 4.60 - 5.80 X10*6/uL [facility] Hemoglobin 12.3(L) 14.0 - 18.0 g/dl [facility] Hematocrit 36.4(L) 42.0 - 52.0 % [facility] Mean Corpuscular Volume 90.3 80.0 - 98.0 fL [facility] Mean Corpuscular Hemoglobin 30.5 27.0 - 33.0 pg [facility] Mean Corpuscular HGB Conc 33.8 31.0 - 36.0 g/dl [facility] Red Cell Distribution Width 12.1 11.0 - 16.0 % [facility] Platelet Count 184 160 - 400 X10*3/uL [facility] Mean Platelet Volume 9.4 9.4 - 12.4 [facility] NRBC Pct Auto 0.0 0.0 - 0.2 /100WBC [facility] NRBC Abs Auto 0.000 0.0 - 0.012 X10*3/uL [facility] Blood Venous blood specimen / Unknown 12/20/2024 10:29 AM EDT 12/20/2024 11:22 AM EDT us Heavenly Gardner MD LAB BLOOD ORDERAB LES Final Result Performing Organization Address City/[facility]/ZIP Co de Phone Number [facility] [address] [place] [phone] * Hemoglobin A1c (12/20/2024 10:29 AM EDT) Hemoglobin A1c 5.9 <6.0 % [facility] Comment:Hemoglobin A1C Refer ence Range Adults: 4.8 - 6.0 % Non diabetic: < 6.0 % Goal: < 7.0 %Additional Action Suggested: > 8.0 %Note: Hemoglobin A1c results are invalid for patients with abnormal amounts of HbF. Blood transfusions may impact the HbA1c concentration in the patient sample. Estimated Average Glucose 123 mg/dL [facility] Comment:eAG = Estimated ave rage glucose which is %A1C expressed asaverage glucose, using the formula of the H7X-PhfziokWvjqhfb Glucose study (ADAG), Diabetes Care, Vol.31,#8,Oct. 2007 Blood Venous blood specimen / Unknown 12/20/2024 10:29 AM EDT 12/20/2024 11:22 AM EDT us Heavenly Gardner MD LAB BLOOD ORDERAB LES Final Result Performing Organization Address [facility] Co de Phone Number [facility] [address] [place] [phone] * Ferritin (12/20/2024 10:29 AM EDT) Ferritin 68 20 - 250 ng/mL [facility] Blood Venous blood specimen / Unknown 12/20/2024 10:29 AM EDT 12/20/2024 11:17 AM EDT us Heavenly Gardner MD LAB BLOOD ORDERAB LES Final Result Performing Organization Address [facility] Co de Phone Number [facility] [address] [place] [phone] * (ABNORMAL) POCT Hgb A1c (12/16/2024 11:29 AM EDT) Pathologist [facility] Hemoglobin A1C 5.9(A) 4.0 - 5.7 % QC Media Lot # [id number] Lot# Expiration Date 775,624 Blood 12/16/2024 11:2 9 AM EDT Heavenly Gardner MD POINT OF CARE EVA T ENTER/EDIT ORDERABLES Final Result * (ABNORMAL) POCT Glucose (12/16/2024 11:26 AM EDT) [facility] Glucose Blood, POC 225(A) 60 - 200 mg/dL QC Media Lot # [id number] Lot# Expiration Date 897,800 Blood Capillary blood specimen / Unknown 12/16/2024 11:26 AM EDT Heavenly Gardner MD POINT OF CARE EVA T ENTER/EDIT ORDERABLES Final Result * POCT SHERRY-14 Urine Drug Screen (12/03/2024 11:43 AM EDT) [facility] THC Negative Negative Cocaine Screen, Urine Negative [...] - 12/03/2024 11:43 AM EDT .UTOX cup Lot#[id number] Exp. 12/21/25 Internal Pass Control Heavenly Gardner MD POINT OF CARE EVA T ENTER/EDIT ORDERABLES Final Result * (ABNORMAL) Albumin, Random Urine W/Creatinine (09/30/2024 3:13 PM EDT) Creatinine, Urine 95.04 mg/dL [facility] Microalbumin Urine 29.0 mg/L H [facility] Microalbum Creatinine Ratio Ur 30.5(H) <30 ug/mg cr [facility] Comment:Albumin/Creatinine R atio Reference Ranges: Normal: < 30 ug/mg creatinine Microalbuminuria: 30 - 300 ug/mg creatinineClinical Albuminuria: > 300 ug/mg creatinine Urine (Urine, Random) 09/30/2024 3:13 PM EDT 09/30/2024 4:13 PM EDT Heavenly Gardner MD LAB URINE ORDERAB LES Final Result [facility] [address] [place] [phone] * (ABNORMAL) Lipid Panel, Standard (07/29/2024 11:34 AM EDT) Triglycerides 88 <150 mg/dL [facility] Comment:Desirable Triglyceri de: less than 150 mg/dLBorderline High Triglyceride 150-199 mg/dLHigh Triglyceride: 200-499 mg/dLVery High Triglyceride: greater than or equal to 5OO mg/dL Cholesterol 135 <200 mg/dL [facility] Comment:Desirable Cholestero l: less than 200 mg/dLBorderline High Cholesterol: 200-239 mg/dLHigh Cholesterol: greater than 239 mg/dL LDL Cholesterol Calculated 87 <100 mg/dL [facility] Comment:Desirable LDL: less than 100 mg/dLNear Optimal/Above Optimal LDL: 110- 129 mg/dLBorderline High LDL: 130-159 mg/dLHigh LDL: 160-189 mg/dLVery High LDL: greater than or equal to 190 mg/dL HDL Cholesterol 31(L) >40 mg/dL [facility] Comment:Desirable HDL: great er than 40 mg/dL Note: This HDL assay may give artificially low results in patients with liver disease. Blood Venous blood specimen / Unknown 07/29/2024 11:34 AM EDT 07/29/2024 12:05 PM EDT us Glo Delgadillo MD LAB BLOOD ORDERABLES Final Re sult [facility] [address] [place] [phone] * (ABNORMAL) HP Diabetic Foot Exam (10/29/2022) us Glo Delgadillo MD HEALTH MAINTENANCE Final Resu lt from Last 3 Months or Most Recently Relevant to Health Maintenance Insurance * Guarantor: Washington Key Account Type Relation to Patient Date of Phone Billing Address Personal/Family Self [address] [place] [address] [facility] STANDARD [facility] ALF OPTIONS (HMO D-SNP) * Guarantor: Washington Key Account Type Relation to Patient Date of Phone Billing Address Personal/Family Self [address] [place] [address] Care Teams Extrusion Supervisor Relationship Specialty Start Date End Date Heavenly Walters MD [address] [place] [phone] PCP - General Internal Medicine 09/30/24 Blank [address] Reshma Gilliam, [facility] [address], [place] [address] Consulting Physician Urology 03/13/23 [employer] [facility] 12/24/24
--- OUTSIDE RECORDS SUMMARY | 2025-02-21 23:13 | XMS_ITS | Encounter Summary ---
Author Organization [employer] Address [address] [facility] 7 [place] [address] Care Team Providers Care Transplanter Name Role Phone Heavenly Walters MD Primary Care Pro vider Reason for Visit * Reason Onset Date Comments Referral 02/17/2025 Encounter Details Date Type Department Care Team ([facility] st Contact Info) Description 02/17/2025 Telephone [facility] [address] [place] [phone] Heavenly Walters MD [address] [place] [address] Referral Social History Tobacco Use Types Packs/Day Years [...] Telephone Encounter - Sara Daily [place] - 02/17/2025 10:11 AM EST T/C-[employer] Director asked Patient if he's back still hurt. Patient stated yes and [employer] Director provided with neurosurgery phone number to office [phone] so he could call and schedule his appointment. Patient agreed. documented in this encounter Plan of Treatment Upcoming Encounters Date Type Department Care Team (Late st Contact Info) Description 03/28/2025 3:00 PM EST Clinical Support [address] [address] 04/07/2025 1:15 PM EST Office Visit [address] [address] Heavenly Walters MD [address] [place] [phone] documented as of this encounter Visit Diagnoses Not on filedocumented in this encounter Additional Health Concerns Assessment Noted Time PHQ-9 Depression Total Score: 0 10/01/19 25 1:47 PM EDT documented as of this encounter Care Teams Transplanter Relationship Specialty Start Date End Date Heavenly Walters MD [address] [place] [phone] PCP - General Internal Medicine 09/30/24 Blank [address], [place] [address] Consulting Physician Urology 03/13/23 [employer] [facility] 12/24/24 documented as of this encounter
--- OUTSIDE RECORDS SUMMARY | 2025-02-21 23:13 | XMS_ITS | Encounter Summary ---
Author Organization [employer] Address [address] [place] [address] Care Team Providers Care Hourly Manager Name Role Phone Glo Delgadillo MD Primary Care Provider [phone] Heavenly Walters MD Primary Care Pro vider Encounter Details Date Type Department Care Team (Late st Contact Info) Description 03/24/2024 Orders Only [facility] [address] [place], [place] [phone] Doreen Anderson MD [address] [place], [place] [phone] Social History Tobacco Use Types Packs/Day Years [...] Description 03/28/2025 3:00 PM EST Clinical Support [address] [phone] 04/07/2025 1:15 PM EST Office Visit [address] [address] Heavenly Wlaters MD [address] [place] [address] [phone] documented as of this encounter Procedures Procedure Name Priority Date/Time Associated Diagnosis Comments US BLADDER Routine 03/25/2024 3:01 PM EST documented in this encounter Results * US BLADDER (03/25/2024 3:01 PM EST) Anatomical Region Laterality Modality Abdomen Ultrasound 03/25/2024 3:01 PM EST Narrative 03/25/2024 4:10 PM EST [address] [address] Ultrasound Report Signed Patient: Washington Key MR#: [id number] : 1945 Acct:[id number] Age/Sex: 79 / M ADM Date: 03/25/24 Loc: HO.US Attending Dr: Doreen Anderson MD Ordering Physician: Doreen Anderson MD Date of Service: 03/25/24 Procedure(s): US bladder Accession Number(s): [id number] cc: Doreen Anderson MD; Glo Delgadillo MD [...] by: Adriano Lee MD 03/25/2024 04:08 PM [facility] Dictated By: dAriano Lee MD Signed By: <Electronically signed by Adriano Lee MD in OV> 03/25/24 1608 DD/ 1501 TD/TT: 03/25/24 1511 Pot Pusher: Procedure Note Donotuseinterpreter, Image - 03/25/[address] [address] Ultrasound Report Signed Patient: Washington Key AMR#: [id number] : 1945cct:[id number] Age/Sex: 79 / MADM Date: 03/25/24 Loc: .US Attending Dr: Doreen Anderson MD Ordering Physician: Doreen Anderson MD Date of Service: 03/25/24 Procedure(s): bladder Accession Number(s): [id number] cc: Doreen Anderson MD; Glo Delgadillo MD [...] 03/25/24 1608 DD/ 1501 TD/TT: 03/25/24 1511 Pot Pusher: us Doreen Anderson MD IMG US PROCEDURES Final Resul t documented in this encounter Visit Diagnoses Not on filedocumented in this encounter Additional Health Concerns Assessment Noted Time PHQ-9 Depression Total Score: 3 05/15/19 24 3:05 PM EST documented as of this encounter Care Teams Hourly Manager Relationship Specialty Start Date End Date Glo Delgadillo MD [address] [place] [address] PCP - General Family Medicine 12/18/20 09/29/24 Heavenly Walters MD [address] [place] [address] PCP - General Internal Medicine 09/30/24 Blank 100 Reshma Gilliam, [facility] [address] [address] Consulting Physician Urology 03/13/23 [facility] 12/24/24 documented as of this encounter
--- OUTSIDE RECORDS SUMMARY | 2025-02-21 23:13 | XMS_ITS | Encounter Summary ---
Author Organization [employer] Address [address] [facility] 7 [place] [address] Care Team Providers Care Nail Specialist Name Role Phone Heavenly Walters MD Primary Care Pro vider Reason for Visit * Reason Onset Date Comments FYI 02/18/2025 Encounter Details Date Type Department Care Team ([facility] Contact Info) Description 02/18/[address] [facility] [address] [place] [id number] Heavenly Walters MD [address] [place] [address] FYI Social History Tobacco Use Types Packs/Day Years [...] encounter Miscellaneous Notes * Telephone Encounter - Nancy Gong RN - 02/21/2025 11:33 AM EST Noted * Telephone Encounter - Yo Perkins - 02/18/2025 4:43 PM EST Tc from Hollie with [employer] calling to inform pcp that pt has been discharged from at home PT. Any questions contact [facility] at [phone]. documented in this encounter Plan of Treatment Upcoming Encounters Date Type Department Care Team (Late st Contact Info) Description 03/28/2025 3:00 PM EST Clinical Support [facility] [address] [place] [phone] 04/07/2025 1:15 PM EST Office Visit [facility] [address] [place] [phone] Heavenly Walters MD [address] [place] [address] documented as of this encounter Visit Diagnoses Not on filedocumented in this encounter Additional Health Concerns Assessment Noted Time PHQ-9 Depression Total Score: 0 10/01/19 1:47 PM EDT documented as of this encounter Care Teams Nail Specialist Relationship Specialty Start Date End Date Heavenly Walters MD [address] [place] [id number] PCP - General Internal Medicine 09/30/24 Blank Gilliam, [facility] [address], [place] [address] Consulting Physician Urology 03/13/23 [employer] [facility] 12/24/24 documented as of this encounter
== END 2025-02-21 15:21 | disposition home or self-care (01) ==
LOC: HO.HNS 14:17
PROVIDERS: PCP Student in an Organized Health Care Education/Training Program; Referring Provider Student in an Organized Health Care Education/Training Program; Visit Provider Physician Assistant
DX: G95.9 Disease of spinal cord, unspecified (principal)
CPT/HCPCS: 99204

== ENCOUNTER → 2025-02-21 14:58 | Outpatient (BNV) | payer OTHER, SELFPAY | PROVIDERS: PCP Student in an Organized Health Care Education/Training Program; Referring Provider Student in an Organized Health Care Education/Training Program; Visit Provider Radiology Diagnostic Radiology | DX: M47.812 Spondylosis without myelopathy or radiculopathy, cervical region (principal) | CPT/HCPCS: 72050 ==

== ENCOUNTER 2025-03-03 13:28 | Outpatient (AMB) | payer OTHER, SELFPAY ==
--- NOTE | 2025-03-03 13:31 | MHC.OFFVIS ---
Intake Visit Reasons: prostate cancer/ urinary incontinence SET UA Intake Note: Reason for Visit: New Patient is present for Prostate Cancer/Urinary Incontinence Urology Meds: None Blood Thinners: None Antibiotic Allergy: None Labs: PSA 9.10 10/17/2023 Imaging: Abd/Pel US 03/25/2024 Last PVR: None Family History Prostate Cancer? No Bladder Cancer?no Previous Urology? PVU-Requested Records Allergies No Known Allergies Allergy (Mild, Verified 02/21/25 14:31) NONE HPI Comments Details: [place] has a [place]-speaking male. He is a patient of Dr.Ponce Gardner. He is seen for the following urologic conditions - prostate cancer - lower urinary tract symptoms [place]ian translation provided by qualified medical pathology teacher via telephone Notes reviewed Recommend initiation of BPH medications drug regulatory affairs specialist prominent prostate and mild thickening bladder wall Start finasteride Six-month follow-up MRI and repeat PSA Low volume prostate cancer diagnosed [facility] 2023 PSA slowly rising PSA 06/08 9.2 Bladder ultrasound thickened bladder wall and prominent prostate PFSH Medical History (Updated 03/03/25 @ 13:53 by Rajesh Villafuerte MD) Urinary incontinence Prostate cancer PUD (peptic ulcer disease) GERD (gastroesophageal reflux disease) DM (diabetes mellitus) Arthritis Anxiety and depression COPD (chronic obstructive pulmonary disease) Asthma History of basal cell carcinoma Depression Left anterior fascicular block Premature atrial contractions Surgical History History of bilateral cataract extraction Hx of hemorrhoidectomy S/P TURP Hx of laminectomy Hx of colonoscopy Family History Father No problems noted. Mother Colon cancer Social History Patient Tobacco Use Status: Former Tobacco user Tobacco use type: Cigarette Assessment & Plan Assessment & Plan (1) Prostate cancer: Code(s): C61 - Malignant neoplasm of prostate Category: Medical (2) BPH (benign prostatic hyperplasia): Code(s): N40.0 - Benign prostatic hyperplasia without lower urinary tract symptoms Category: Medical Plan Start finasteride Orders: Orders PSA,Total (Free>4and<10) 6 Months C61 - Malignant neoplasm of prostate MR Prostate wo/w con Today C61 - Malignant neoplasm of prostate PSA,Total (Free>4and<10) Today C61 - Malignant neoplasm of prostate Medications: New finasteride 5 mg PO DAILY 90 tabs 1RF 90 days C61 - Malignant neoplasm of prostate Patient Instructions: This note is constructed using voice recognition software. While every effort has been made to ensure accuracy comfort filler errors may have been included. Imaging studies, laboratory and physical exam results were discussed and reviewed in detail. No major barriers to patient understanding were identified. An opportunity to ask questions regarding the treatment plan was provided. All questions were answered. The patient expressed understanding and agreement with the above treatment plan. The patient is aware they should contact our office by phone for worsening of their current condition or the appearance of new urologic symptoms. Compliance is encouraged with any medications and followup testing that is ordered. It is a privilege to participate in the urologic care of your patient. If you have any questions or concerns regarding treatment for the above conditions, or other urologic issues, please do not hesitate to contact me. The office telephone contact is [phone]. Sincerely, Dr Rajesh Villafuerte MD, [facility] - Urology Compassionate Specialist Care for the Genitourinary System Coding Level of Care Code New Pt Level 3 (26830) Add On Problem Visit Only Diagnoses Prostate cancer C61 BPH (benign prostatic hyperplasia) N40.0
--- OUTSIDE RECORDS SUMMARY | 2025-03-03 17:36 | XMS_ITS | Encounter Summary ---
Author Organization [employer] Address [address] [place] [address] [address] [place] [address] Care Team Providers Care Seamer Elastic Band Name Role Phone Glo Delgadillo MD Primary Care Provider [phone] Heavenly Walters MD Primary Care Pro vider Reason for Visit * Reason Comments Med Refill Encounter Details Date Type Department Care Team ([facility] Contact Info) Description 11/21/2022 Refill [facility] [address] [place], [place] [phone] Michelle Holland MD [address] [place] [address] Anxiety Social History Tobacco Use Types Packs/Day [...] Upcoming Encounters Date Type Department Care Team ([facility] Contact Info) Description 03/28/2025 3:00 PM EST Clinical Support [facility] [address] [place], [place] [phone] 04/07/2025 1:15 PM EST Office Visit [facility] [address] [place] [address] Heavenly Walters MD [address] [place] [address] documented as of this encounter Visit Diagnoses Diagnosis Anxiety Anxiety state, unspecified documented in this encounter Additional Health Concerns Assessment Noted Time PHQ-9 Depression Total Score: 1 04/18/19 23 3:01 PM EST documented as of this encounter Care Teams Seamer Elastic Band Relationship Specialty Start Date End Date Glo Delgadillo MD [address] [place] [address] PCP - General Family Medicine 12/18/20 09/29/24 Heavenly Walters MD [address] [place] [phone] PCP - General Internal Medicine 09/30/24 Blank Gilliam, [facility] [address], [place] [address] Consulting Physician Urology 03/13/[address] [employer] [facility] 12/24/24 documented as of this encounter
--- OUTSIDE RECORDS SUMMARY | 2025-03-03 17:36 | XMS_ITS | Encounter Summary ---
Author Organization [employer] Address [address] [facility] [address] [place] [address] Care Team Providers Care Cripple Cutter Name Role Phone Heavenly Walters MD Primary Care Pro vider Reason for Visit * Reason Onset Date Comments Results 03/02/2025 Encounter Details Date Type Department Care Team ([facility] Contact Info) Description 03/02/2025 Telephone [facility] [address] [place] [phone] Heavenly Walters MD [address] [place] [address] Results Social History Tobacco Use Types Packs/Day Years [...] Telephone Encounter - Sarah Cobos RN - 03/03/2025 1:09 PM EST Telephone call returned to pt. No answer, left v/m. If pt returns call please tell him that the lab did not run the stool test because the amount they got wasn't enough. He needs to do it again. He can peanut picker kit from 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 Thank you! * Telephone Encounter - Yo Perkins - 03/02/2025 12:17 PM EST TC from pt requesting call back regarding Results. Type of results: Labs Date when done: 01/25/25 Facility: [facility] Please contact pt at [phone]. (Romanian Speaker) documented in this encounter Plan of Treatment Upcoming Encounters Date Type Department Care Team ([facility] st Contact Info) Description 03/28/2025 3:00 PM EST Clinical Support [address] [address] 04/07/2025 1:15 PM EST Office Visit [facility] [address] [place] [address] Heavenly Walters MD [address] [place], [place] [phone] documented as of this encounter Visit Diagnoses Not on filedocumented in this encounter Additional Health Concerns Assessment Noted Time PHQ-9 Depression Total Score: 0 10/01/19 1:47 PM EDT documented as of this encounter Care Teams Cripple Cutter Relationship Specialty Start Date End Date Heavenly Walters MD [address] [place] [address] PCP - General Internal Medicine 09/30/24 Blank Gilliam, [facility] [address], [place] [address] Consulting Physician Urology 03/13/23 [employer] [facility] 12/24/24 documented as of this encounter
--- OUTSIDE RECORDS SUMMARY | 2025-03-03 17:36 | XMS_ITS | Clinical Summary ---
Author Organization [employer] Address [address] [facility] [address] [place] [address] Care Team Providers Care Fashion Editor Name Role Phone Heavenly Walters MD Primary Care Pro vider Allergies No known active allergies Medications flecainide (Tambocor) 50 MG tablet Take 1 tablet by mouth 2 times daily. 03/14/20 22 Active dilTIAZem (Cardizem) 30 MG immediate release tablet Take 1 tablet by mouth 2 times daily. 02/04/20 23 Active hydroCHLOROthiaz lavelle (Microzide) 12.5 MG capsule Take 1 capsule by mouth in the morning. 02/04/20 23 Active polyethylene glycol, PEG, 3350 (Glycolax) 17 GM/SCOOP powderIndication s:Constipation, unspecified constipation type Take 17 g by mouth Once per day. 510 g 3 07/23/19 25 Active Incruse Ellipta 62.5 MCG/ACT aerosol powderIndication s:Chronic obstructive pulmonary disease, unspecified COPD type (CMS/HCC) ([facility]) INHALE 1 PUFF DAILY AT THE SAME TIME EACH DAY 30 each 5 08/27/19 25 Active Ventolin HFA 108 (90 Base) MCG/ACT inhaler Inhale 2 puffs every 6 (six) hours if needed for wheezing. Pt moving medbox to [facility] thanks 18 g 2 10/01/19 25 Active cholecalciferol VITAMIN D (Vitamin D-3) 50 MCG (1999 UT) capsule TAKE ONE CAPSULE EVERY MORNING 90 capsule 1 11/13/19 25 Active Lancets (OneTouch Delica Plus [id number]) miscIndications: Type 2 diabetes mellitus with hyperglycemia, without long-term current use of insulin ([facility]) TEST BLOOD SUGAR TWICE DAILY 100 each 11 11/20/19 Active OneTouch Ultra Test test stripIndications :Type 2 diabetes mellitus with hyperglycemia, without long-term current use of insulin ([facility]) TEST BLOOD SUGAR TWICE DAILY 100 strip 11 11/20/19 Active omeprazole (PriLOSEC) [address] capsule Take 1 capsule (20 mg) by mouth before breakfast. Do not crush or chew. 90 capsule 12/17/19 Active psyllium (Metamucil Smooth Texture) 58.6 % powder Take 5.12 g (3 g of fiber) by mouth 2 times daily. 283 g 2 12/17/19 25 Active cyanocobalamin (Vitamin B-12) 500 MCG tablet Take 1 tablet (500 mcg) by mouth Once per day. 90 tablet 1 12/21/19 25 Active buPROPion XL (Wellbutrin XL) 150 MG 24 hr tablet TAKE ONE TABLET EVERY MORNING 28 tablet 5 01/06/20 Active docusate sodium (Colace) 100 MG capsule TAKE ONE CAPSULE IN THE MORNING AND EVENING 56 capsule 5 01/06/20 Active lisinopril 20 MG tablet TAKE ONE TABLET EVERY MORNING 28 tablet 5 01/06/20 Active Stimulant Laxative 8.6-50 MG tabletIndication s:Constipation, unspecified constipation type TAKE TWO TABLETS EVERY DAY AT BEDTIME 56 tablet 5 01/06/20 Active metFORMIN (Glucophage) 500 MG tabletIndication s:Type 2 diabetes mellitus with hyperglycemia, unspecified whether skilled nursing insulin use ([facility]) TAKE 1 TABLET BY MOUTH TWICE DAILY IN THE MORNING AND IN THE EVENING WITH FOOD 180 tablet 01/07/20 Active ferrous gluconate (Fergon) 324 (38 Fe) MG tablet Take 1 tablet (324 mg) by mouth with breakfast. 90 tablet 1 01/07/20 Active tamsulosin (Flomax) 0.4 MG 24 hr capsule 01/07/20 Active melatonin 5 MG tablet TAKE ONE TABLET EVERY NIGHT AT BEDTIME 90 tablet 1 03/02/20 Active melatonin 5 MG tablet TAKE ONE TABLET EVERY NIGHT AT BEDTIME 90 tablet 1 09/24/19 25 025 Discontinued Active Problems Problem Noted Date Diagnosed Date [...] control. Labs sent Malignant tumor of prostate ([facility]/HCC) 07/19/2021 Tremor 04/06/2015 Seborrheic dermatitis 04/06/2015 Assessment [...] presented decreased sensation of foot. Referral to Power Brake Operator for further evaluation. Encounters Date Type Department Care Team Description 03/02/2025 Telephone [facility] MEDICINE [address] [place] [address] Heavenly Walters MD Results 03/02/2025 Refill [facility] CHC MED & PEDS [address] [place], [place] [phone] Glo Delgadillo MD 02/21/2025 Orders Only [facility] External Provider, [facility] 02/18/2025 Telephone [facility] MEDICINE [address] [place] [address] Heavenly Walters MD FYI 02/17/[address] [address] Heavenly Walters MD Referral 02/15/2025 Orders Only [facility] MEDICINE [address] [place] [address] Heavenly Walters MD Prostate cancer (CMS/HCC) (HCC) (Primary Dx) 02/08/2025 Orders Only [facility] [address] [place] [address] Heavenly Walters MD Numbness (Primary Dx); Poor balance; Abnormal MRI, cervical spine 02/08/2025 Results Follow-Up [facility] MEDICINE [address] [place] [phone] Heavenly Walters MD MR Cervical Spine w/o Contrast 02/03/2025 Telephone [facility] MEDICINE [address] [place] [phone] Heavenly Walters MD order 02/03/2025 Results Follow-Up [address] [address] Heavenly Walters MD Client Education Tracking, Fecal Globin By Immunochemistry 02/03/2025 Orders Only [facility] MEDICINE [address] [place] [address] Heavenly Walters MD Anemia, unspecified type (Primary Dx) 01/25/2025 Orders Only [address] [address] Heavenly Walters MD 01/24/2025 Orders Only [facility] WALK-IN CENTER [address] [place] [address] Stehpan Hannon MD Urinary incontinence, urge (Primary Dx) 01/20/2025 Telephone [facility] MEDICINE [address] [place] [phone] Heavenly Walters MD Care Coordination; Referral 01/10/2025 Telephone [facility] MEDICINE [address] [place] [address] Heavenly Walters MD vinnie recall 01/07/2025 Refill [facility] MED & PEDS [address] [place] [address] Glo Delgadillo MD 01/06/2025 Refill [facility] MEDICINE [address] [place] [address] Heavenly Walters MD 01/06/2025 Refill [facility] MED & PEDS [address] [place] [address] Glo Delgadillo MD Type 2 diabetes mellitus with hyperglycemia, unspecified whether skilled nursing insulin use (HCC) 01/05/2025 Refill [facility] MED & PEDS [address] [place] [address] Glo Delgadillo MD Constipation, unspecified constipation type 12/29/2024 10:00 AM EDT Office Visit [facility] OPTOMETRY [address] [facility] [place] [address] Davis, Violetta, OD Diabetes type 2, no ocular involvement (HCC) (Primary Dx); Epiretinal membrane (ERM) of both eyes; Pseudophakia of both eyes; Meibomian gland disease of both eyes, unspecified eyelid; Presbyopia 12/29/2024 Telephone [facility] [address] [place] [address] Heavenly Walters MD Medication Question 12/29/2024 Travel 12/27/[address] [address] Heavenly Walters MD Verbal order; Durable Medical Equipment 12/22/2024 3:00 PM EDT Immunization [facility] [address] [place] [address] Sarah Cobos, RN Encounter for immunization 12/22/2024 Travel 12/20/2024 Results Follow-Up [address] [address] Heavenly Walters MD CBC, Hemoglobin A1c, Hepatitis B Core Antibody, Total, Additional followed-up results: 9 12/20/2024 Orders Only [address] [address] Heavenly Walters MD 12/20/[address] [address] Heavenly Walters MD Paperwork/Forms 12/16/2024 11:15 AM EDT Office Visit [address] [address] Heavenly Walters MD Numbness (Primary Dx); Type 2 diabetes mellitus with hyperglycemia, unspecified whether field artillery operations specialist insulin use (HCC); Encounter for vaccination; Encounter for immunization; Dietary counseling; Exercise counseling 12/16/[address] [address] Sarah Cobos, RN Care Coordination; VNA Referral; Appointment Request 12/16/2024 Travel 12/15/2024 Telephone [facility] MEDICINE [address] [place] [address] Heavenly Walters MD 12/03/2024 11:00 AM EDT Clinical Support [facility] MEDICINE [address] [place] [address] Yi Burgess RN Long-term current use of [...] Description 03/28/2025 3:00 PM EST Clinical Support [facility] MEDICINE [address] [place] [address] 04/07/2025 1:15 PM EST Office Visit [facility] MEDICINE [address] [place] [phone] Heavenly Walters MD [address] [place] [address] [phone] Health Maintenance Due Date Last Done Comments [...] 2 diabetes mellitus with hyperglycemia, unspecified whether field artillery operations specialist insulin use (HCC) POCT GLUCOSE Routine 12/16/2024 11:26 AM EDT Type 2 diabetes mellitus with hyperglycemia, unspecified whether field artillery operations specialist insulin use (HCC) POCT SHERRY-14 URINE DRUG SCREEN Routine 12/03/2024 11:43 AM EDT Long-term current use of benzodiazepine ALBUMIN, RANDOM URINE W/CREATININE Routine 09/30/2024 3:13 PM EDT Health care maintenance LIPID PANEL, STANDARD Routine 07/29/2024 11:34 AM EDT Type 2 diabetes mellitus with hyperglycemia, unspecified whether field artillery operations specialist insulin use (CMS/HCC) HP LINK DIABETIC FOOT EXAM Routine 10/29/2022 from Last 3 Months or Most Recently Relevant to Health Maintenance Results * XR CERVICAL SPINE 4V (02/21/2025 2:58 PM EST) Anatomical Region Laterality Modality Abdomen Radiographic Siria ging 02/21/2025 2:58 PM EST Narrative 02/21/2025 3:29 PM EST [facility] [address] [place] [address] Drive [address] [place] [address] XRay Report Signed Patient: Washington Key MR#: [id number] : 1945 Acct:[id number] Age/Sex: 79 / M ADM Date: 02/21/25 Loc: HO.HOSX Attending Dr: Elder MANZANO Ordering Physician: Elder Maier Date of Service: 02/21/25 Procedure(s): XR cervical spine 4V Accession Number(s): [id number] cc: Elder Maier; Heavenly Walters MD Reason [...] by: Adriano Lee MD 02/21/2025 03:26 PM [facility] Dictated By: Adriano Lee MD Signed By: <Electronically signed by Adriano Lee MD in OV> 02/21/25 1526 DD/ 1458 TD/TT: 02/21/25 1502 Patrol Police Sergeant: Procedure Note Donotuseinterpreter, Image - 02/21/2025 [facility] [address] [place] [address] XRay Report Signed Patient: Washington Key [facility]#: [id number] : 1945Acct:[id number] Age/Sex: 79 / MADM Date: 02/21/25 Loc: HO.HOSX Attending Dr: Elder MANZANO Ordering Physician: Elder Maier Date of Service: 02/21/25 Procedure(s): XR cervical spine 4V Accession Number(s): [id number] cc: Elder Maier; Heavenly Walters MD Reason [...] 02/21/25 1526 DD/ 1458 TD/TT: 02/21/25 1502 Patrol Police Sergeant: [facility] External Provider IMG XR PROCEDURES Final Result * MR Cervical Spine w/o Contrast (01/29/2025 11:24 AM EST) Anatomical Region Laterality Modality Spine, C-spine Magnetic Resonan ce 01/29/2025 11:2 4 AM EST Narrative 01/31/2025 7:47 AM EST [place] [address] Magnetic Resonance Report Signed Patient: Washington Key MR#: [id number] : 1945 Acct:[id number] Age/Sex: 79 / M ADM Date: 01/29/25 Loc: HO.MRI Attending Dr: Heavenly Gardner MD Ordering Physician: Heavenly Walters MD Date of Service: 01/29/25 Procedure(s): MR cervical spine wo con Accession Number(s): [id number] cc: Heavenly Walters MD Reason for Exam: [...] MD Signed By: <Electronically signed by Rey Cboos MD in OV> 01/31/25 0744 DD/ 1124 TD/TT: 01/29/25 1144 Patrol Police Sergeant: Procedure Note Donotuseinterpreter, Image - 01/31/2025 [place] [address] Magnetic Resonance Report Signed Patient: Washington Key [facility]#: [id number] : 6Acct:[id number] Age/Sex: 79 / MADM Date: 01/29/25 Loc: HO.MRI Attending Dr: Heavenly Gardner MD Ordering Physician: Heavenly Walters MD Date of Service: 01/29/25 Procedure(s): MR cervical spine wo con Accession Number(s): [id number] cc: Heavenly Walters MD Reason for Exam: [...] 01/31/25 0744 DD/ 1124 TD/TT: 01/29/25 1144 Patrol Police Sergeant: Heavenly Gardner MD IM MRI PROCEDURE S Final Result * MR Brain w/o Contrast (01/29/2025 11:05 AM EST) Anatomical Region Laterality Modality Brain Magnetic Resonan ce 01/29/2025 11:0 5 AM EST Narrative 01/31/2025 7:07 AM EST [address] [address] Magnetic Resonance Report Signed Patient: Washington Key MR#: [id number] : 1945 Acct:[id number] Age/Sex: 79 / M ADM Date: 01/29/25 Loc: HO.MRI Attending Dr: Heavenly Gardner MD Ordering Physician: Heavenly Waltres MD Date of Service: 01/29/25 Procedure(s): MR head/brain wo con Accession Number(s): [id number] cc: Heavenly Walters MD Reason for Exam: [...] 01/31/25 0704 DD/ 1105 TD/TT: 01/29/25 1122 Patrol Police Sergeant: Procedure Note Donotuseinterpreter, Image - 01/31/2025 [place] [address] Magnetic Resonance Report Signed Patient: Washington Key AMR#: [id number] : 6Acct:[id number] Age/Sex: 79 / MADM Date: 01/29/25 Loc: HO.MRI Attending Dr: Heavenly Gardner MD Ordering Physician: Heavenly Walters MD Date of Service: 01/29/25 Procedure(s): MR head/brain wo con Accession Number(s): [id number] cc: Heavenly Walters MD Reason for Exam: [...] 01/31/25 0704 DD/ 1105 TD/TT: 01/29/25 1122 Patrol Police Sergeant: Heavenly Gardner MD IMG MRI PROCEDURE S Final Result * Client Education Tracking (01/25/2025 6:12 AM EST) Client Education Tracking [facility] Comment: The Requisition we received did not include a [employer] account number. To prevent delays in testing [...] UNKNOWN Heavenly Gardner MD LAB BLOOD BANK [facility] ORDERABLES Final Result [facility] [address], [place] [address] [facility] [address] [place] [address] * Fecal Globin By Immunochemistry (01/25/2025 6:12 AM EST) Fecal Globin By Immunochemistry SEE NOTE [facility] Comment: FECAL GLOBIN BY IMMUNOCHEMISTRY Micro Number: [id number] Test Status: Final Specimen Source: Stool Specimen [...] FLUIDS A ND STOOLS ORDERABLES Final Result [facility] [address] [facility], [place] [address] [employer] [facility] [address] [place] [address] * OCT, Retina - OU - Both Eyes (12/29/2024 10:00 AM EDT) Narrative Violetta Cannon, OD - 01/14/2025 9:59 AM EDT Images [...] CT PCR, Urine NOT DETECTED Not Detect. [facility] Comment:A not detected test result [...] NG PCR, Urine NOT DETECTED Not Detect. [facility] Comment:A not detected test result [...] ORDERAB LES Final Result Performing Organization Address [facility] Co de Phone Number [facility] [address] [place] [phone] * Syphilis Screen (12/20/2024 10:29 AM EDT) Syphilis Screen Nonreactive Nonreactive [facility] Blood 12/20/2024 10:2 9 AM EDT 12/20/2024 11:17 AM EDT Heavenly Gardner MD LAB BLOOD ORDERAB LES Final Result Performing Organization Address [facility] Co de Phone Number [facility] [address] [place] [phone] * Vitamin D, 25-Hydroxy, Total, Immunoassay (12/20/2024 10:29 AM EDT) Vitamin D 25-OH Total 57.5 >30 ng/mL [facility] Comment: Health Based Reference Values*< 20 ng/mL Trdbmxpxj80-24 ng/mL Insufficient> 30 ng/mL Sufficient*Jack MEADOWS. N [...] ORDERAB LES Final Result Performing Organization Address City/State/[facility] Co de Phone Number [facility] [address] [place] [phone] * Vitamin B12 (Cobalamin) and Folate Panel, Serum (12/20/2024 10:29 AM EDT) Vitamin B12 293 200 - 900 pg/mL [facility] Comment:NORMAL 200-900 PG/ML INDETERMINATE 160-199 PG/ML DEFICIENT < 160 PG/ML Folate 12.3 > or = 4.0 ng/mL [facility] Comment:Reference Values:> o r = 4.0 ng/mL< 4.0 ng/mL suggests folate deficiency Methotrexate, aminopterin and folinic acid(leucovorin) are chemotherapeutic agents whose molecularstructures are similar to folate; therefore, the Architectfolate assay cannot be used for patients using these drugs. Blood 12/20/2024 10:2 9 AM EDT 12/20/2024 11:17 AM EDT Heavenly Gardner MD LAB BLOOD ORDERAB LES Final Result Performing Organization Address City/State/[facility] Co de Phone Number [facility] [address] [place] [address] [phone] * Hepatitis C Antibody with Reflex to HCV, RNA, Quantitative, Real-Time PCR (12/20/2024 10:29 AM EDT) Pathologist [facility] Hepatitis C Antibody Nonreactive Nonreactive [facility] Comment:Antibodies to HCV no t detected; does not exclude early acuteHCV infection. Blood Venous blood specimen / Unknown 12/20/2024 10:29 AM EDT 12/20/2024 11:17 AM EDT Heavenly Gardner MD LAB BLOOD ORDERAB LES Final Result Performing Organization Address [facility] Co de Phone Number [facility] [address] [place] [phone] * Iron And Total Iron Binding Capacity (12/20/2024 10:29 AM EDT) [facility] Iron 116 45 - 160 mcg/dL [facility] Total Iron Binding Capacity 257 228 - 428 mcg/dL [facility] Percent Iron Saturation 45 15 - 50 % [facility] Unsaturated Iron Binding 141 ug/dL [facility] Blood Venous blood specimen / Unknown 12/20/2024 10:29 AM EDT 12/20/2024 11:17 AM EDT us Heavenly Gardner MD LAB BLOOD ORDERAB LES Final Result Performing Organization Address [facility] Co de Phone Number [facility] [address] [place] [phone] * Hepatitis B surface antigen, EIA (12/20/2024 10:29 AM EDT) Pathologist [facility] Hepatitis B Surface Ag Negative Negative [facility] Blood Venous blood specimen / Unknown 12/20/2024 10:29 AM EDT 12/20/2024 11:17 AM EDT Heavenly Gardner MD LAB BLOOD ORDERAB LES Final Result [facility] [address] [place] [phone] * Hepatitis B Core Antibody, Total (12/20/2024 10:29 AM EDT) Hepatitis B Core Antibody Nonreactive Nonreactive [facility] Blood Venous blood specimen / Unknown 12/20/2024 10:29 AM EDT 12/20/2024 11:17 AM EDT Heavenly Gardner MD LAB BLOOD ORDERAB LES Final Result Performing Organization Address [facility]/ZIP Co de Phone Number [facility] [address] [place] [phone] * HIV-1/2 Antigen and Antibodies, Fourth Generation, with Reflexes (12/20/2024 10:29 AM EDT) HIV AB/AG Nonreactive Nonreactive [facility] Comment:HIV-1 p24 Ag and/or HIV-1/HIV-2 Ab not detected.A test result that is nonreactive does not exclude thepossibility of exposure to or infection with HIV-1 and/orHIV-2. Nonreactive results in this assay for individualswith prior exposure to HIV-1 and/or HIV-2 may be due toantigen and antibody levels that are below the limit ofdetection of this assay.The [employer] HIV Ag/Ab Combo assay result andsupplemental assay results should be interpreted inconjunction with the patient's clinical presentation,history and other laboratory results. If the results areinconsistent with clinical evidence, additional testing issuggested to confirm the result. Blood Venous blood specimen / Unknown 12/20/2024 10:29 AM EDT 12/20/2024 11:17 AM EDT Heavenly Gardner MD LAB BLOOD ORDERAB LES Final Result Performing Organization Address City/[facility]/ZIP Co de Phone Number [facility] [address] [place] [phone] * Hepatitis B Surface Antibody, Qualitative (12/20/2024 10:29 AM EDT) [facility] ~Hepatitis B Surface Antibody NONREACTIVE Nonreactive [facility] Comment:Nonreactive: < 8.00 mIU/mL Blood Venous blood specimen / Unknown 12/20/2024 10:29 AM EDT 12/20/2024 11:17 AM EDT us Heavenly Gardner MD LAB BLOOD ORDERAB LES Final Result Performing Organization Address [facility] Co de Phone Number [facility] [address] [place] [phone] * (ABNORMAL) CBC (12/20/2024 10:29 AM EDT) [facility] White Blood Count 3.9(L) 4.8 - 10.8 X10*3/uL [facility] Red Blood Count 4.03(L) 4.60 - 5.80 X10*6/uL [facility] Hemoglobin 12.3(L) 14.0 - 18.0 g/dl [facility] Hematocrit 36.4(L) 42.0 - 52.0 % [facility] Mean Corpuscular Volume 90.3 80.0 - 98.0 fL [facility] Mean Corpuscular Hemoglobin 30.5 27.0 - 33.0 pg [facility] Mean Corpuscular HGB Conc 33.8 31.0 - 36.0 g/dl [facility] Red Cell Distribution Width 12.1 11.0 - 16.0 % [facility] Platelet Count 184 160 - 400 X10*3/uL [facility] Mean Platelet Volume 9.4 9.4 - 12.4 fL [facility] NRBC Pct Auto 0.0 0.0 - 0.2 /100WBC [facility] NRBC Abs Auto 0.000 0.0 - 0.012 X10*3/uL [facility] Blood Venous blood specimen / Unknown 12/20/2024 10:29 AM EDT 12/20/2024 11:22 AM EDT Heavenly Gardner MD LAB BLOOD ORDERAB LES Final Result [facility] [address] [place] [phone] * Hemoglobin A1c (12/20/2024 10:29 AM EDT) Hemoglobin A1c 5.9 <6.0 % [facility] Comment:Hemoglobin A1C Refer ence Range Adults: 4.8 - 6.0 % Non diabetic: < 6.0 % Goal: < 7.0 %Additional Action Suggested: > 8.0 %Note: Hemoglobin A1c results are invalid for patients with abnormal amounts of HbF. Blood transfusions may impact the HbA1c concentration in the patient sample. Estimated Average Glucose 123 mg/dL [facility] Comment:eAG = Estimated ave rage glucose which is %A1C expressed asaverage glucose, using the formula of the E4A-ApylfivGwcosoo Glucose study (ADAG), Diabetes Care, Vol.31,#8,Oct. 2007 Blood Venous blood specimen / Unknown 12/20/2024 10:29 AM EDT 12/20/2024 11:22 AM EDT us Heavenly Gardner MD LAB BLOOD ORDERAB LES Final Result [facility] [address] [place] [phone] * Ferritin (12/20/2024 10:29 AM EDT) Ferritin 68 20 - 250 ng/mL [facility] Blood Venous blood specimen / Unknown 12/20/2024 10:29 AM EDT 12/20/2024 11:17 AM EDT Heavenly Gardner MD LAB BLOOD ORDERAB LES Final Result [facility] [address] [place] [phone] * (ABNORMAL) POCT Hgb A1c (12/16/2024 11:29 AM EDT) Pathologist [facility] Hemoglobin A1C 5.9(A) 4.0 - 5.7 % QC Media Lot # [id number] Lot# Expiration Date ,[id number] Blood 12/16/2024 11:2 9 AM EDT Heavenly Gardner MD POINT OF CARE EVA T ENTER/EDIT ORDERABLES Final Result * (ABNORMAL) POCT Glucose (12/16/2024 11:26 AM EDT) Pathologist [facility] Glucose Blood, POC 225(A) 60 - 200 mg/dL QC Media Lot # [id number] Lot# Expiration Date [id number] Blood Capillary blood specimen / Unknown 12/16/2024 11:26 AM EDT Heavenly Gardner MD POINT OF CARE EVA T ENTER/EDIT ORDERABLES Final Result * POCT SHERRY-14 Urine Drug Screen (12/03/2024 11:43 AM EDT) Pathologist [facility] THC Negative Negative Cocaine Screen, Urine [...] Unknown 12/03/2024 11:43 AM EDT Narrative Yi Burgess, LISA - 12/03/2024 11:43 AM EDT .UTOX cup Lot#[id number] Exp. 12/21/25 Internal Pass Control us Heavenly Gardner MD POINT OF CARE EVA T ENTER/EDIT ORDERABLES Final Result * (ABNORMAL) Albumin, Random Urine W/Creatinine (09/30/2024 3:13 PM EDT) Creatinine, Urine 95.04 mg/dL [facility] Microalbumin Urine 29.0 mg/L H [facility] Microalbum Creatinine Ratio Ur 30.5(H) <30 ug/mg cr [facility] Comment:Albumin/Creatinine R atio Reference Ranges: Normal: < 30 ug/mg creatinine Microalbuminuria: 30 - 300 ug/mg creatinineClinical Albuminuria: > 300 ug/mg creatinine Urine (Urine, Random) 09/30/2024 3:13 PM EDT 09/30/2024 4:13 PM EDT us Heavenly Gardner MD LAB URINE ORDERAB LES Final Result Performing Organization Address City/State/[facility] Co de Phone Number [facility] [address] [place] [phone] * (ABNORMAL) Lipid Panel, Standard (07/29/2024 11:34 AM EDT) Triglycerides 88 <150 mg/dL [facility] Comment:Desirable Triglyceri de: less than 150 mg/dLBorderline High Triglyceride 150-199 mg/dLHigh Triglyceride: 200-499 mg/dLVery High Triglyceride: greater than or equal to 5OO mg/dL Cholesterol 135 <200 mg/dL [facility] Comment:Desirable Cholestero l: less than 200 mg/dLBorderline High Cholesterol: 200-239 mg/dLHigh Cholesterol: greater than 239 mg/dL LDL Cholesterol Calculated 87 <100 mg/dL [facility] Comment:Desirable LDL: less than 100 mg/dLNear Optimal/Above Optimal LDL: 110- 129 mg/dLBorderline High LDL: 130-159 mg/dLHigh LDL: 160-189 mg/dLVery High LDL: greater than or equal to 190 mg/dL HDL Cholesterol 31(L) >40 mg/dL [facility] Comment:Desirable HDL: great er than 40 mg/dL Note: This HDL assay may give artificially low results in patients with liver disease. Blood Venous blood specimen / Unknown 07/29/2024 11:34 AM EDT 07/29/2024 12:05 PM EDT us Glo Delgadillo MD LAB BLOOD ORDERABLES Final Re sult [facility] [address] [place] [address] [phone] * (ABNORMAL) HP Diabetic Foot Exam (10/29/2022) Glo Delgadillo MD HEALTH MAINTENANCE Final Resu lt from Last 3 Months or Most Recently Relevant to Health Maintenance Insurance [facility] STANDARD [facility] OPTIONS (HMO D-SNP) Care Teams Fashion Editor Relationship Specialty Start Date End Date Heavenly Walters MD [address] [place] [address] PCP - General Internal Medicine 09/30/24 Blank 100 Reshma Gilliam, [address], [place] [address] Consulting Physician Urology 03/13/23 [facility] 12/24/24
--- OUTSIDE RECORDS SUMMARY | 2025-03-03 17:36 | XMS_ITS | Encounter Summary ---
Author Organization [employer] Address [address] [facility] 7t [place] [address] Care Team Providers Care Want Ad Supervisor Name Role Phone Heavenly Walters MD Primary Care Pro vider Reason for Visit * Reason Comments Med Refill Encounter Details Date Type Department Care Team ([facility] Contact Info) Description 03/02/2025 Refill [facility] MED & PEDS [address] [place], [place] [phone] Glo Delgadillo MD 505 [place], [place] [phone] Social History Tobacco Use Types Packs/Day Years [...] Description 03/28/2025 3:00 PM EST Clinical Support [address] [address] 04/07/2025 1:15 PM EST Office Visit [address] [address] Heavenly Walters MD [address] [place] [address] documented as of this encounter Visit Diagnoses Not on filedocumented in this encounter Additional Health Concerns Assessment Noted Time PHQ-9 Depression Total Score: 0 10/01/19 25 1:47 PM EDT documented as of this encounter Care Teams Want Ad Supervisor Relationship Specialty Start Date End Date Heavenly Walters MD [address] [place] [address] PCP - General Internal Medicine 09/30/24 Blank Gilliam, [address], [place] [address] Consulting Physician Urology 03/13/23 [facility] 12/24/24 documented as of this encounter
--- OUTSIDE RECORDS SUMMARY | 2025-03-03 17:36 | XMS_ITS | Encounter Summary ---
Author Organization [employer] Address [address] [facility] [address] 7t [place] [address] Care Team Providers Care Automotive Window Tinter Name Role Phone Glo Delgadillo MD Primary Care Provider [phone] Heavenly Walters MD Primary Care Pro vider Encounter Details Date Type Department Care Team ([facility] st Contact Info) Description 03/24/2024 Orders Only [facility] [address] [place], [place] [phone] Doreen Anderson MD [address] [place], [place] [phone] Social History Tobacco Use Types Packs/Day Years [...] Description 03/28/2025 3:00 PM EST Clinical Support [address] [phone] 04/07/2025 1:15 PM EST Office Visit [address] [phone] Heavenly Walters MD [address] [place] [address] [phone] documented as of this encounter Procedures Procedure Name Priority Date/Time Associated Diagnosis Comments US BLADDER Routine 03/25/2024 3:01 PM EST documented in this encounter Results * US BLADDER (03/25/2024 3:01 PM EST) Anatomical Region Laterality Modality Abdomen Ultrasound 03/25/2024 3:01 PM EST Narrative 03/25/2024 4:10 PM EST [address] [address] Ultrasound Report Signed Patient: Washington Key MR#: [id number] : 1945 Acct:[id number] Age/Sex: 79 / M ADM Date: 03/25/24 Loc: HO.US Attending Dr: Doreen Anderson MD Ordering Physician: Doreen Anderson MD Date of Service: 03/25/24 Procedure(s): US bladder Accession Number(s): [id number] cc: Doreen Anderson MD; Glo Delgadillo MD [...] by: Adriano Lee MD 03/25/2024 04:08 PM [facility] Dictated By: Adriano Lee MD Signed By: <Electronically signed by Adriano Lee MD in OV> 03/25/24 1608 DD/ 1501 TD/TT: 03/25/24 1511 Pelletising Extruder Operator: Procedure Note Donotuseinterpreter, Image - 03/25/[address] [address] Ultrasound Report Signed Patient: Washington Key AMR#: [id number] : 1945cct:[id number] Age/Sex: 79 / MADM Date: 03/25/24 Loc: .US Attending Dr: Doreen Anderson MD Ordering Physician: Doreen Anderson MD Date of Service: 03/25/24 Procedure(s): bladder Accession Number(s): [id number] cc: Doreen Anderson MD; Glo Delgadillo MD [...] 03/25/24 1608 DD/ 1501 TD/TT: 03/25/24 1511 Pelletising Extruder Operator: us Doreen Anderson MD IMG US PROCEDURES Final Resul t documented in this encounter Visit Diagnoses Not on filedocumented in this encounter Additional Health Concerns Assessment Noted Time PHQ-9 Depression Total Score: 3 05/15/19 24 3:05 PM EST documented as of this encounter Care Teams Automotive Window Tinter Relationship Specialty Start Date End Date Glo Delgadillo MD 230 [place] [address] PCP - General Family Medicine 12/18/20 09/29/24 Heavenly Walters MD 230 [place] [address] PCP - General Internal Medicine 09/30/24 Blank 100 Reshma Gilliam, [facility] [address], [place] [address] Consulting Physician Urology 03/13/23 [facility] 12/24/24 documented as of this encounter
--- OUTSIDE RECORDS SUMMARY | 2025-03-03 17:36 | XMS_ITS | Encounter Summary ---
Author Organization [employer] Address 75 [facility] 7t [place] [address] Care Team Providers Care Integration Software Developer Name Role Phone Heavenly Walters MD Primary Care Pro vider Reason for Visit * Reason Comments Med Refill Encounter Details Date Type Department Care Team ([facility] Contact Info) Description 01/07/2025 Refill [facility] MED & PEDS [address] [place], [place] [phone] Glo Delgadillo MD 505 [place], [place] [phone] Social History Tobacco Use Types Packs/Day Years [...] Description 03/28/2025 3:00 PM EST Clinical Support [address] [address] 04/07/2025 1:15 PM EST Office Visit [address] [address] Heavenly Walters MD [address] [place] [address] documented as of this encounter Visit Diagnoses Not on filedocumented in this encounter Additional Health Concerns Assessment Noted Time PHQ-9 Depression Total Score: 0 10/01/19 25 1:47 PM EDT documented as of this encounter Care Teams Integration Software Developer Relationship Specialty Start Date End Date Heavenly Walters MD [address] [place] [address] PCP - General Internal Medicine 09/30/24 Blank Gilliam, [address], [place] [address] Consulting Physician Urology 03/13/23 [employer] [facility] 12/24/24 documented as of this encounter
== END 2025-03-03 13:58 | disposition home or self-care (01) ==
LOC: HO.HUSH 13:28
PROVIDERS: PCP Student in an Organized Health Care Education/Training Program; Visit Provider Urology
DX: C61 Malignant neoplasm of prostate (principal); N40.0 Benign prostatic hyperplasia without lower urinary tract symptoms
CPT/HCPCS: 99203; G2211

== ENCOUNTER → 2025-03-03 13:28 | Outpatient (BNVA) | payer OTHER, SELFPAY | PROVIDERS: PCP Student in an Organized Health Care Education/Training Program; Visit Provider Urology | DX: C61 Malignant neoplasm of prostate (principal); N40.0 Benign prostatic hyperplasia without lower urinary tract symptoms | CPT/HCPCS: 99202 ==

== ENCOUNTER 2025-03-04 13:55 | Outpatient (REF) | payer OTHER, SELFPAY ==
--- NOTE | ~2025-03-04 | XR_ITS ---
EXAMINATION: XR HAND 3 OR MORE VIEWS LEFT HISTORY: pain and swelling of the left middle finger after a fall 3 days ago COMPARISON: There are no prior studies available for comparison. FINDINGS: Four views of the left hand are submitted. Osseous mineralization is normal. There is no fracture or dislocation. There is mild narrowing of the DIP and PIP joints. The soft tissues are unremarkable. XR/XR hand LT min 3V IMPRESSION: No evidence of fracture of the left hand. Electronically signed by: Bipin Quiñones MD 03/04/2025 02:39 PM EST
--- OUTSIDE RECORDS SUMMARY | 2025-03-04 13:20 | XMS_ITS | Encounter Summary ---
Author Organization [employer] Address [address] [facility] [address] 7t [place] [address] Care Team Providers Care Chairman President And Chief Executive Officer Name Role Phone Heavenly Walters MD Primary Care Pro vider Reason for Visit * Reason Comments left hand pain Encounter Details Date Type Department Care Team ([facility] st Contact Info) Description 03/04/2025 1:20 PM EST Office Visit [facility] [address] [place] [phone] Name, MD Antony [address] [place] [phone] Pain of left middle finger (Primary Dx); Swelling of left middle finger Social History Tobacco Use Types Packs/Day Years [...] Sign [place] Time Taken Comments Blood Pressure 141/67 03/04/2025 1:26 PM EST Pulse 65 03/04/2025 1:26 PM EST Temperature 36.6 C (97.9 F) 03/04/2025 1:26 PM EST Respiratory Rate 14 03/04/2025 1:26 PM EST Oxygen Saturation 98% 03/04/2025 1:26 PM EST Inhaled Oxygen Concentration - - Weight 72.2 kg (159 lb 3.2 oz) 03/04/2025 1:26 P M EST Height 175.3 cm (5' 9 ) 03/04/2025 1:26 PM EST Body Mass Index 23.51 03/04/2025 1:26 PM EST documented in this encounter Progress Notes * Antony Contreras MD - 03/04/2025 1:20 PM EST Subjective Patient ID: Washington Key is a 79 y.o. male who presents for left hand pain. Patient comes with 3 days of left middle finger swelling, pain and decreased range of motion after a fall. The patient explains to me that he fell getting out of the bathtub. He was able to catch himself with the left hand. He did not have trauma to the head, no loss of consciousness, no palpitations. He denies significant pain elsewhere today. Review of Systems Constitutional: Negative for fever. Respiratory: Negative for cough. Cardiovascular: Negative for chest pain. Musculoskeletal: See HPI Neurological: Negative for syncope. Objective Vitals: 03/04/25 1326 BP: (!) 141/67 BP Location: Left arm Patient Position: Sitting BP Cuff Size: Adult Pulse: 65 Resp: 14 Temp: 97.9 ??F (36.6 ??C) TempSrc: Temporal SpO2: 98% Weight: 159 lb 3.2 oz (72.2 kg) Height: 5' 9 (1.753 m) Physical Exam Constitutional: General: Washington is not in acute distress. Appearance: Washington is not toxic-appearing. Cardiovascular: Rate and Rhythm: Normal rate and regular rhythm. Heart sounds: No murmur heard. Pulmonary: Effort: Pulmonary effort is normal. No respiratory distress. Musculoskeletal: Comments: Let middle finger swelling, pain and decreased ROM Patient's hand x-ray was negative for left middle finger fracture to my reading. Assessment/Plan Diagnoses and all orders for this visit: Pain of left middle finger Comments: Patient had x-ray that was negative for finger fracture to my reading. Probably finger sprain after recent fall. I recommended rest Apply ice to the affected finger on and off Left middle finger splint I prescribed topical diclofenac to be used 3 times a day as needed He is encouraged to call or come back if he does not feel much better by next week Orders: - XR Hand 3+ Views Left; Future - Diclofenac Sodium 1 % gel; Apply thin layer by topical route (quantity as directed on package insert) to affected area of pain 3 times daily as needed. Swelling of left middle finger - XR Hand 3+ Views Left; Future - Diclofenac Sodium 1 % gel; Apply thin layer by topical route (quantity as directed on package insert) to affected area of pain 3 times daily as needed. Future Appointments Date Time Provider Department Center 03/28/2025 3:00 PM [facility] GREEN TEAM NURSE MEDICINE [facility] 04/07/2025 1:15 PM Heavenly Gardner MD MEDICINE [facility] documented in this encounter Plan of Treatment Upcoming Encounters Date Type Department Care Team (Late st Contact Info) Description 03/28/2025 3:00 PM EST Clinical Support [address] [address] 04/07/2025 1:15 PM EST Office Visit [address] [address] Heavenly Walters MD [address] [place] [address] documented as of this encounter Procedures Procedure Name Priority Date/Time Associated Diagnosis Comments XR HAND 3+ VIEWS LEFT Routine 03/04/2025 2:23 PM EST Swelling of left middle finger Pain of left middle finger documented in this encounter Results * XR Hand 3+ Views Left (03/04/2025 2:23 PM EST) Anatomical Region Laterality Modality Upper Extremities, Hand Left Radiogra phic Imaging 03/04/2025 2:23 PM EST Narrative 03/04/2025 2:42 PM EST [address] [address] XRay Report Signed Patient: Washington Key MR#: [id number] : 1945 Acct:[id number] Age/Sex: 79 / M ADM Date: 03/04/25 [facility] Dr: Antony Contreras MD Ordering Physician: Antony Contreras MD Date of Service: 03/04/25 Procedure(s): XR hand LT min 3V Accession Number(s): [id number] cc: Antony Contreras MD Reason for Exam: pain and swelling of the left middle finger after a fall 3 days ago EXAMINATION: XR HAND 3 OR MORE VIEWS LEFT HISTORY: pain and swelling of the left middle finger after a fall 3 days ago COMPARISON: There are no prior studies available for comparison. FINDINGS: Four views of the left hand are submitted. Osseous mineralization is normal. There is no fracture or dislocation. There is mild narrowing of the DIP and PIP joints. The soft tissues are unremarkable. XR/XR hand LT min 3V IMPRESSION: No evidence of fracture of the left hand. Electronically signed by: Bipin Quiñones MD 03/04/2025 02:39 PM EST RP Dictated By: Bipin Quiñones MD Signed By: <Electronically signed by Bipin Quiñones MD in OV> 03/04/251438 DD/ 1423 TD/TT: 03/04/25 143 Early Morning: Procedure Note Donotuseinterpreter, Image - 03/04/[address] [address] XRay Report Signed Patient: Washington Key AMR#: [id number] : 1945cct:[id number] Age/Sex: 79 / MADM Date: 03/04/25 Loc: HO.HHCX Attending Dr: Antony Contreras MD Ordering Physician: Antony Contreras MD Date of Service: 03/04/25 Procedure(s): XR hand LT min 3V Accession Number(s): [id number] cc: Antony Contreras MD Reason for Exam: pain and swelling of the left middle finger after a fall3 days ago EXAMINATION: XR HAND 3 OR MORE VIEWS LEFT HISTORY: pain and swelling of the left middle finger after a fall 3 days ago COMPARISON: There are no prior studies available for comparison. FINDINGS: Four views of the left hand are submitted. Osseous mineralization is normal. There is no fracture or dislocation. There is mild narrowing of the DIP and PIP joints. The soft tissues are unremarkable. XR/XR hand LT min 3V IMPRESSION: No evidence of fracture of the left hand. Electronically signed by: Bipin Quiñones MD 03/04/2025 02:39 PM EST RP Dictated By: Bipin Quiñones MD Signed By: <Electronically signed by Bipin Quiñones MD in OV> 03/04/25 1439 DD/ 1423 TD/TT: 03/04/25 143 Early Morning: Antony Contreras MD IMG XR PROCEDURES Final Result documented in this encounter Visit Diagnoses Diagnosis Pain of left middle finger- Primary Swelling of left middle finger documented in this encounter Additional Health Concerns Assessment Noted Time PHQ-9 Depression Total Score: 0 10/01/19 1:47 PM EDT documented as of this encounter Care Teams Chairman President And Chief Executive Officer Relationship Specialty Start Date End Date Heavenly Walters MD [address] [place] [address] PCP - General Internal Medicine 09/30/24 Blank [address] Reshma Gilliam, [facility] 120, [place] [address] Consulting Physician Urology 03/13/23 [employer] [facility] 12/24/24 documented as of this encounter
--- OUTSIDE RECORDS SUMMARY | 2025-03-04 15:35 | XMS_ITS | Encounter Summary ---
Author Organization [employer] Address [address] [facility] 7 [place] [address] Care Team Providers Care Supervisor Offset Plate Preparation Name Role Phone Heavenly Walters MD Primary Care Pro vider Reason for Visit * Reason Onset Date Comments Results 03/02/2025 Encounter Details Date Type Department Care Team ([facility] Contact Info) Description 03/02/2025 Telephone [facility] MEDICINE [address] [place] [phone] Heavenly Walters MD 230 [place] [address] Results Social History Tobacco Use Types Packs/Day [...] needs to do it again. 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 Thank you! * Telephone Encounter - Yo Perkins - 03/02/2025 12:17 PM EST TC from pt requesting call back regarding Results. Type of results: Labs Date when done: 01/25/25 Facility: [facility] Please contact pt at [phone]. (Maori Speaker) documented in this encounter Plan of Treatment Upcoming Encounters Date Type Department Care Team ([facility] st Contact Info) Description 03/28/2025 3:00 PM EST Clinical Support [address] [address] 04/07/2025 1:15 PM EST Office Visit [facility]IC[facility] 230 [place] [address] Heavenly Walters MD [address] [place], [place] [phone] documented as of this encounter Visit Diagnoses Not on filedocumented in this encounter Additional Health Concerns Assessment Noted Time PHQ-9 Depression Total Score: 0 10/01/19 1:47 PM EDT documented as of this encounter Care Teams Supervisor Offset Plate Preparation Relationship Specialty Start Date End Date Heavenly Walters MD [address] [place] [address] PCP - General Internal Medicine 09/30/24 Blank Gilliam, [facility] 120, [place] [address] Consulting Physician Urology 03/13/23 [employer] [facility] 12/24/24 documented as of this encounter
--- OUTSIDE RECORDS SUMMARY | 2025-03-04 15:35 | XMS_ITS | Encounter Summary ---
Author Organization [employer] Address [address] [facility] 7t [place] [address] Care Team Providers Care Plant And Machinery Valuer Name Role Phone Heavenly Walters MD Primary Care Pro vider Encounter Details Date Type Department Care Team (Latest Contact Info) Description 03/04/2025 Travel Social History Tobacco Use Types Packs/Day [...] Description 03/28/2025 3:00 PM EST Clinical Support [address] [address] 04/07/2025 1:15 PM EST Office Visit [address] [address] Heaevnly Walters MD [address] [place] [address] documented as of this encounter Visit Diagnoses Not on filedocumented in this encounter Additional Health Concerns Assessment Noted Time PHQ-9 Depression Total Score: 0 10/01/19 1:47 PM EDT documented as of this encounter Care Teams Plant And Machinery Valuer Relationship Specialty Start Date End Date Heavenly Walters MD [address] [place] [address] PCP - General Internal Medicine 09/30/24 Blank [address] Reshma Gilliam, [facility] 120, [place] [address] Consulting Physician Urology 03/13/23 [employer] [facility] 12/24/24 documented as of this encounter
--- OUTSIDE RECORDS SUMMARY | 2025-03-04 15:35 | XMS_ITS | Encounter Summary ---
Author Organization [employer] Address [address] [facility] 7t [place] [address] Care Team Providers Care Associate Financial Advisor Name Role Phone Heavenly Walters MD Primary Care Pro vider Reason for Visit * Reason Comments Med Refill Encounter Details Date Type Department Care Team ([facility] Contact Info) Description 03/02/2025 Refill [facility] MED & PEDS 505 [place], [place] [phone] Glo Delgadillo MD 505 [place], [place] [phone] Social History Tobacco Use Types Packs/Day Years [...] Description 03/28/2025 3:00 PM EST Clinical Support [address] [address] 04/07/2025 1:15 PM EST Office Visit [address] [address] Heavenly Walters MD [address] [place] [address] documented as of this encounter Visit Diagnoses Not on filedocumented in this encounter Additional Health Concerns Assessment Noted Time PHQ-9 Depression Total Score: 0 10/01/19 25 1:47 PM EDT documented as of this encounter Care Teams Associate Financial Advisor Relationship Specialty Start Date End Date Heavenly Walters MD [address] [place] [address] PCP - General Internal Medicine 09/30/24 Blank Gilliam, [address], [place] [address] Consulting Physician Urology 03/13/23 [employer] [facility] 12/24/24 documented as of this encounter
--- OUTSIDE RECORDS SUMMARY | 2025-03-04 15:35 | XMS_ITS | Encounter Summary ---
Author Organization [employer] Address [address] [place] [address] 7 [place] [address] Care Team Providers Care Substance Abuse Nurse Name Role Phone Glo Delgadillo MD Primary Care Provider [phone] Heavenly Walters MD Primary Care Pro vider Reason for Visit * Reason Comments Med Refill Encounter Details Date Type Department Care Team ([facility] Contact Info) Description 11/21/2022 Refill [facility] MED & PEDS 505 [place], [place] [phone] Michelle Holland MD 505 [place] [address] Anxiety Social History Tobacco Use Types Packs/Day [...] Upcoming Encounters Date Type Department Care Team ([facility] Contact Info) Description 03/28/2025 3:00 PM EST Clinical Support [facility] MEDICINE 230 [place], [place] [phone] 04/07/2025 1:15 PM EST Office Visit [facility] 230 [place] [address] Heavenly Walters MD 230 [place] [address] documented as of this encounter Visit Diagnoses Diagnosis Anxiety Anxiety state, unspecified documented in this encounter Additional Health Concerns Assessment Noted Time PHQ-9 Depression Total Score: 1 04/18/19 23 3:01 PM EST documented as of this encounter Care Teams Substance Abuse Nurse Relationship Specialty Start Date End Date Glo Delgadillo MD 230 [place] [address] PCP - General Family Medicine 12/18/20 09/29/24 Heavenly Walters MD [address] [place] [address] PCP - General Internal Medicine 09/30/24 Blank Gilliam, [facility] 120, [place] [address] Consulting Physician Urology 03/13/23 [facility] [facility] 12/24/24 documented as of this encounter
--- OUTSIDE RECORDS SUMMARY | 2025-03-04 15:36 | XMS_ITS | Clinical Summary ---
Author Organization [employer] Address [address] [facility] 7[address] [place] [address] Care Team Providers Care Health Management Consultant Name Role Phone Heavenly Walters MD [...] disease, unspecified COPD type (CMS/HCC) ([facility]) INHALE 1 PUFF DAILY AT THE SAME TIME EACH DAY 30 each 5 08/27/19 25 Active Ventolin HFA 108 (90 Base) MCG/ACT inhaler Inhale 2 puffs every 6 (six) hours if needed for wheezing. Pt moving medbox to [facility] thanks 18 g 2 10/01/19 25 Active cholecalciferol VITAMIN D (Vitamin D-3) 50 MCG (1999 UT) capsule TAKE ONE CAPSULE EVERY MORNING 90 capsule 1 11/13/19 25 Active Lancets (OneTouch Delica Plus [id number]) miscIndications: Type 2 diabetes mellitus with hyperglycemia, without long-term current use of insulin ([facility]) TEST BLOOD SUGAR TWICE DAILY 100 each 11 11/20/19 25 Active OneTouch Ultra Test test stripIndications :Type 2 diabetes mellitus with hyperglycemia, without long-term current use of insulin ([facility]) TEST BLOOD SUGAR TWICE DAILY 100 [...] 2 diabetes mellitus with hyperglycemia, unspecified whether penitentiary insulin use ([facility]) TAKE 1 TABLET BY MOUTH TWICE DAILY [...] AT BEDTIME 90 tablet 1 03/02/20 Active Diclofenac Sodium 1 % gelIndications:P ain of left middle finger,Swelling of left middle finger Apply thin layer by topical route (quantity as directed on package insert) to affected area of pain 3 times daily as needed. 50 g 3 03/04/20 Active melatonin 5 MG tablet TAKE ONE TABLET EVERY NIGHT AT BEDTIME 90 tablet 1 09/24/19 25 025 Discontinued Diclofenac Sodium 1 % gelIndications:P ain of left middle finger,Swelling of left middle finger Apply thin layer by topical route (quantity as directed on package insert) to affected area of pain 3 times daily as needed. 50 g 3 03/04/20 25 025 Discontinued(Re order (will not trigger notification to Pharmacy)) Active [...] presented decreased sensation of foot. Referral to [facility] for further evaluation. Encounters Date Type Department Care Team Description 03/04/2025 1:20 PM EST Office Visit [facility] [address] [place] [address] Name, MD Antony Pain of left middle finger (Primary Dx); Swelling of left middle finger 03/04/2025 Travel 03/02/2025 Telephone [facility] MEDICINE [address] [place] [address] Heavenly Walters MD Results 03/02/2025 Refill [facility] [address] [place] [address] Glo Delgadillo MD 02/21/2025 Orders Only [facility] External Provider, [facility] 02/18/[address] [address] Heavenly Walters MD FYI 02/17/[address] [address] Heavenly Walters MD Referral 02/15/2025 Orders Only [address] [address] Heavenly Walters MD Prostate cancer (CMS/HCC) (HCC) (Primary Dx) 02/08/2025 Orders Only [address] [address] Heavenly Walters MD Numbness (Primary Dx); Poor balance; Abnormal MRI, cervical spine 02/08/2025 Results Follow-Up [address] [address] Heavenly Walters MD MR Cervical Spine w/o Contrast 02/03/[address] [address] Heavenly Walters MD order 02/03/2025 Results Follow-Up [address] [address] Heavenly Walters MD Client Education Tracking, Fecal Globin By Immunochemistry 02/03/2025 Orders Only [address] [address] Heavenly Walters MD Anemia, unspecified type (Primary Dx) 01/25/2025 Orders Only [address] [address] Heavenly Walters MD 01/24/2025 Orders Only [facility] [address] [place] [phone] Stephan Hannon MD Urinary incontinence, urge (Primary Dx) 01/20/[address] [address] Heavenly Walters MD Care Coordination; Referral 01/10/[address] [address] Heavenly Walters MD vinnie recall 01/07/2025 Refill [facility] [address] [place] [address] Glo Delgadillo MD 01/06/2025 Refill [facility] [address] [place] [address] Heavenly Walters MD 01/06/2025 Refill [facility] [address] [place] [address] Glo Delgadillo MD Type 2 diabetes mellitus with hyperglycemia, unspecified whether penitentiary insulin use (HCC) 01/05/2025 Refill [facility] [address] [place] [address] Glo Delgadillo MD Constipation, unspecified constipation type 12/29/2024 10:00 AM EDT Office Visit [facility] OPTOMETRY [address] [place] [address] Davis, Violetta, OD Diabetes type 2, no ocular involvement (HCC) (Primary Dx); Epiretinal membrane (ERM) of both eyes; Pseudophakia of both eyes; Meibomian gland disease of both eyes, unspecified eyelid; Presbyopia 12/29/2024 Telephone [facility] MEDICINE [address] [place] [phone] Heavenly Walters MD Medication Question 12/29/2024 Travel 12/27/2024 Telephone [facility]INE [address] [place] [phone] Heavenly Walters MD Verbal order; Durable Medical Equipment 12/22/2024 3:00 PM EDT Immunization [address] [address] Sarah Cobos, RN Encounter for immunization 12/22/2024 Travel 12/20/2024 Results Follow-Up [address] [address] Heavenly Walters MD CBC, Hemoglobin A1c, Hepatitis B Core Antibody, Total, Additional followed-up results: 9 12/20/2024 Orders Only [facility] [address] [place] [address] Heavenly Walters MD 12/20/2024 Telephone [facility] MED[facility]INE [address] [place] [phone] Heavenly Walters MD Paperwork/Forms 12/16/2024 11:15 AM EDT Office Visit [address] [address] Heavenly Walters MD Numbness (Primary Dx); Type 2 diabetes mellitus with hyperglycemia, unspecified 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 (HCC); Encounter for vaccination; Encounter for immunization; Dietary counseling; Exercise counseling 12/16/[address] [address] Sarah Cobos, LISA Care Coordination; VNA Referral; Appointment Request 12/16/2024 Travel 12/15/[address] [address] Heavenly Walters MD 12/03/2024 11:00 AM EDT Clinical Support [address] [address] Yi Burgess RN Long-term current use of [...] Mass Index 23.51 03/04/2025 1:26 PM EST Plan of Treatment Upcoming Encounters Date Type Department Care Team (Late st Contact Info) Description 03/28/2025 3:00 PM EST Clinical Support [facility] [address] [place] [phone] 04/07/2025 1:15 PM EST Office Visit [facility] MED[facility] [address] [place] [phone] Heavenly Walters MD [address] [place] [phone] Health Maintenance Due Date Last Done Comments Diabetes: Foot Exam 08/24/2024 08/25/2023, 08/25/2023, 08/25/2023, Additional history exists Diabetes: Hemoglobin A1C 03/22/20252 025, 12/16/2024, 07/22/2024, Additional history exists COVID-19 Vaccine ( season) 2025 12/16/2024, 03/28/2021, 06/22/2020, Additional history exists Alcohol/Substance Use Screening 07/22/2025 07/22/2024 SDOH Screening 07/22/2025 07/22/2024 Lipid Panel 07/29/2025 07/29/2024, 08/15, 10/30/2022, Additional history exists Depression Screening 09/30/2025 09/30/2024, 10/01/19 Diabetes: Urine Protein Screening 09/30/2025 09/30/2024, 10/30/2022, 05/29/2021, Additional history exists Tobacco Screening 03/04/2026 03/04/2025 Eye Exam 12/29/2026 12/29/2024, 12/15, 12/29/2024, Additional [...] middle finger Pain of left middle finger XR CERVICAL SPINE 4V Routine 02/21/2025 2:58 [...] 2 diabetes mellitus with hyperglycemia, unspecified whether penitentiary insulin use (HCC) POCT GLUCOSE Routine 12/16/2024 11:26 AM EDT Type 2 diabetes mellitus with hyperglycemia, unspecified 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 (HCC) POCT SHERRY-14 URINE DRUG SCREEN Routine 12/03/2024 11:43 AM EDT Long-term current use of benzodiazepine ALBUMIN, RANDOM URINE W/CREATININE Routine 09/30/2024 3:13 PM EDT Health care maintenance LIPID PANEL, STANDARD Routine 07/29/2024 11:34 AM EDT Type 2 diabetes mellitus with hyperglycemia, unspecified 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 (CMS/HCC) HP LINK DIABETIC FOOT EXAM Routine 10/29/2022 from Last 3 Months or Most Recently Relevant to Health Maintenance Results * XR Hand 3+ Views Left (03/04/2025 2:23 PM EST) Anatomical Region Laterality Modality Upper Extremities, Hand Left [facility] 03/04/2025 2:23 PM EST Narrative 03/04/2025 2:42 PM EST [address] [address] XRay Report Signed Patient: Washington Key MR#: [id number] : 1945 Acct:[id number] Age/Sex: 79 / M ADM Date: 03/04/25 Loc: HO.HHCX Attending Dr: Antony Contreras MD Ordering Physician: Antony Contreras MD Date of Service: 03/04/25 Procedure(s): XR hand LT min 3V Accession Number(s): [id number] cc: Antony Contreras MD Reason for Exam: [...] Bipin Quiñones MD 03/04/2025 02:39 PM EST Dictated By: Bipin Quiñones MD Signed By: <Electronically signed by Bipin Quiñones MD in OV> 03/04/25 1439 DD/ 1423 TD/TT: 03/04/25 1436 Feed Adviser: Procedure Note Donotuseinterpreter, Image - 03/04/[address] [address] XRay Report Signed Patient: Washington Key AMR#: [id number] : 1945cct:[id number] Age/Sex: 79 / MADM Date: 03/04/25 Loc: HO.HHCX Attending Dr: Antony Contreras MD Ordering Physician: Antony Contreras MD Date of Service: 03/04/25 Procedure(s): XR hand LT min 3V Accession Number(s): [id number] cc: Antony Contreras MD Reason for Exam: [...] Bipin Quiñones MD 03/04/2025 02:39 PM EST Dictated By: Bipin Quiñones MD Signed By: <Electronically signed by Bipin Quiñones MD in OV> 03/04/25 1439 DD/ 1423 TD/TT: 03/04/25 1436 Feed Adviser: Antony Contreras MD IMG XR PROCEDURES Final Result * XR CERVICAL SPINE 4V (02/21/2025 2:58 PM EST) Anatomical Region Laterality Modality Abdomen Radiographic Siria ging 02/21/2025 2:58 PM EST Narrative 02/21/2025 3:29 PM EST [facility] [address] [place] [address] Drive [address] [place] [address] XRay Report Signed Patient: Washington Key MR#: [id number] : 1945 Acct:[id number] Age/Sex: 79 / M ADM Date: 02/21/25 Loc: HO.HOSX Attending Dr: Elder MANZANO Ordering Physician: Elder Maier Date of Service: 02/21/25 Procedure(s): XR cervical spine 4V Accession Number(s): [id number] cc: Elder Maier; Heavenly Walters MD Reason [...] by: Adriano Lee MD 02/21/2025 03:26 PM [facility] Dictated By: Adriano Lee MD Signed By: <Electronically signed by Adriano Lee MD in OV> 02/21/25 1526 DD/ 1458 TD/TT: 02/21/25 1502 Feed Adviser: Procedure Note Donotuseinterpreter, Image - 02/21/2025 [facility] [address] [place] [address] Drive [address] [place] [address] XRay Report Signed Patient: Washington Key [facility]#: [id number] : 6Acct:[id number] Age/Sex: 79 / MADM Date: 02/21/25 Loc: HO.DAYANAX Attending Dr: Elder MANZANO Ordering Physician: Elder Maier Date of Service: 02/21/25 Procedure(s): XR cervical spine 4V Accession Number(s): [id number] cc: Elder Maier; Heavenly Walters MD Reason [...] 02/21/25 1526 DD/ 1458 TD/TT: 02/21/25 1502 Feed Adviser: [facility] External Provider IMG XR PROCEDURES Final Result * MR Cervical Spine w/o Contrast (01/29/2025 11:24 AM EST) Anatomical Region Laterality Modality Spine, C-spine Magnetic Resonan ce 01/29/2025 11:2 4 AM EST Narrative 01/31/2025 7:47 AM EST [address] [address] Magnetic Resonance Report Signed Patient: Washington Key MR#: [id number] : 1945 Acct:[id number] Age/Sex: 79 / M ADM Date: 01/29/25 Loc: HO.MRI Attending Dr: Heavenly Gardner MD Ordering Physician: Heavenly Walters MD Date of Service: 01/29/25 Procedure(s): MR cervical spine wo con Accession Number(s): [id number] cc: Heavenly Walters MD Reason for Exam: [...] 01/31/25 0744 DD/ 1124 TD/TT: 01/29/25 1144 Feed Adviser: Procedure Note Donotuseinterpreter, Image - 01/31/2025 [place] [address] Magnetic Resonance Report Signed Patient: Washington Key AMR#: [id number] : 6Acct:[id number] Age/Sex: 79 / MADM Date: 01/29/25 Loc: HO.MRI Attending Dr: Heavenly Gardner MD Ordering Physician: Heavenly Walters MD Date of Service: 01/29/25 Procedure(s): MR cervical spine wo con Accession Number(s): [id number] cc: Heavenly Walters MD Reason for Exam: [...] 01/31/25 0744 DD/ 1124 TD/TT: 01/29/25 1144 Feed Adviser: us Heavenly Gardner MD IMG MRI PROCEDURE S Final Result * MR Brain w/o Contrast (01/29/2025 11:05 AM EST) Anatomical Region Laterality Modality Brain Magnetic Resonan ce 01/29/2025 11:0 5 AM EST Narrative 01/31/2025 7:07 AM EST [place] [address] Magnetic Resonance Report Signed Patient: Washington Key MR#: [id number] : 1945 Acct:[id number] Age/Sex: 79 / M ADM Date: 01/29/25 Loc: HO.MRI Attending Dr: Heavenly Gardner MD Ordering Physician: Heavenly Walters MD Date of Service: 01/29/25 Procedure(s): MR head/brain wo con Accession Number(s): [id number] cc: Heavenly Walters MD Reason for Exam: [...] 01/31/25 0704 DD/ 1105 TD/TT: 01/29/25 1122 Feed Adviser: Procedure Note Donotuseinterpreter, Image - 01/31/2025 [place] [address] Magnetic Resonance Report Signed Patient: Washington Key AMR#: [id number] : 1945cct:[id number] Age/Sex: 79 / MADM Date: 01/29/25 Loc: HO.MRI Attending Dr: Heavenly Gardner MD Ordering Physician: Heavenly Walters MD Date of Service: 01/29/25 Procedure(s): MR head/brain wo con Accession Number(s): [id number] cc: Heavenly Walters MD Reason for Exam: [...] 01/31/25 0704 DD/ 1105 TD/TT: 01/29/25 1122 Feed Adviser: us Heavenly Gardner MD IMG MRI PROCEDURE S Final Result * Client Education Tracking (01/25/2025 6:12 AM EST) Client Education Tracking [employer] [facility] [employer] Comment: The Requisition we received did not include a [employer] account number. To prevent delays in testing [...] UNKNOWN Heavenly Gardner MD LAB BLOOD BANK [facility] ORDERABLES Final Result [facility] [address], [place] [address] [employer] [facility] [address] [place] [address] * Fecal Globin By Immunochemistry (01/25/2025 6:12 AM EST) Fecal Globin By Immunochemistry SEE NOTE [employer] [facility] Comment: FECAL GLOBIN BY IMMUNOCHEMISTRY Micro Number: [id number] Test Status: Final Specimen Source: Stool Specimen [...] ND STOOLS ORDERABLES Final Result [facility] [address], [place] [address] [employer] [facility] [address] [place] [address] * OCT, Retina - OU - Both [...] CT PCR, Urine NOT DETECTED Not Detect. [facility] Comment:A not detected test result [...] NG PCR, Urine NOT DETECTED Not Detect. [facility] Comment:A not detected test result [...] ORDERAB LES Final Result Performing Organization Address [facility] Co de Phone Number [facility] [address] [place] [phone] * Syphilis Screen (12/20/2024 10:29 AM EDT) Syphilis Screen Nonreactive Nonreactive [facility] Blood 12/20/2024 10:2 9 AM EDT 12/20/2024 11:17 AM EDT Heavenly Gardner MD LAB BLOOD ORDERAB LES Final Result Performing Organization Address [facility] Co de Phone Number [facility] [address] [place] [phone] * Vitamin D, 25-Hydroxy, Total, Immunoassay (12/20/2024 10:29 AM EDT) Vitamin D 25-OH Total 57.5 >30 ng/mL [facility] Comment: Health Based Reference Values*< 20 ng/mL [id number] ng/mL Insufficient> 30 ng/mL Sufficient*Jack MEADOWS. N [...] MD LAB BLOOD ORDERAB LES Final Result [facility] [address] [place] [phone] * Vitamin B12 (Cobalamin) and Folate Panel, Serum (12/20/2024 10:29 AM EDT) Vitamin B12 293 200 - 900 pg/mL [facility] Comment:NORMAL 200-900 PG/ML INDETERMINATE 160-199 PG/ML DEFICIENT < 160 PG/ML Folate 12.3 > or = 4.0 ng/mL [facility] Comment:Reference Values:> o r = 4.0 ng/mL< 4.0 ng/mL suggests folate deficiency Methotrexate, aminopterin and folinic acid(leucovorin) are chemotherapeutic agents whose molecularstructures are similar to folate; therefore, the Architectfolate assay cannot be used for patients using these drugs. Blood 12/20/2024 10:2 9 AM EDT 12/20/2024 11:17 AM EDT us Heavenly Gardner MD LAB BLOOD ORDERAB LES Final Result Performing Organization Address City/[facility]/ZIP Co de Phone Number [facility] [address] [place] [phone] * Hepatitis C Antibody with Reflex to HCV, RNA, Quantitative, Real-Time PCR (12/20/2024 10:29 AM EDT) Pathologist [facility] Hepatitis C Antibody Nonreactive Nonreactive [facility] Comment:Antibodies to HCV no t detected; does not exclude early acuteHCV infection. Blood Venous blood specimen / Unknown 12/20/2024 10:29 AM EDT 12/20/2024 11:17 AM EDT us Heavenly Gardner MD LAB BLOOD ORDERAB LES Final Result Performing Organization Address [facility] Co de Phone Number [facility] [address] [place] [phone] * Iron And Total Iron Binding Capacity (12/20/2024 10:29 AM EDT) Pathologist [facility] Iron 116 45 - 160 mcg/dL [facility] Total Iron Binding Capacity 257 228 - 428 mcg/dL [facility] Percent Iron Saturation 45 15 - 50 % [facility] Unsaturated Iron Binding 141 ug/dL [facility] Blood Venous blood specimen / Unknown 12/20/2024 10:29 AM EDT 12/20/2024 11:17 AM EDT us Heavenly Gardner MD LAB BLOOD ORDERAB LES Final Result Performing Organization Address City/[facility]/ZIP Co de Phone Number [facility] [address] [place] [phone] * Hepatitis B surface antigen, EIA (12/20/2024 10:29 AM EDT) Hepatitis B Surface Ag Negative Negative [facility] Blood Venous blood specimen / Unknown 12/20/2024 10:29 AM EDT 12/20/2024 11:17 AM EDT us Heavenly Gardner MD LAB BLOOD ORDERAB LES Final Result Performing Organization Address City/[facility]/ZIP Co de Phone Number [facility] [address] [place] [phone] * Hepatitis B Core Antibody, Total (12/20/2024 10:29 AM EDT) Hepatitis B Core Antibody Nonreactive Nonreactive [facility] Blood Venous blood specimen / Unknown 12/20/2024 10:29 AM EDT 12/20/2024 11:17 AM EDT us Heavenly Gardner MD LAB BLOOD ORDERAB LES Final Result Performing Organization Address [facility] Co de Phone Number [facility] [address] [place] [phone] * HIV-1/2 Antigen and Antibodies, Fourth Generation, with Reflexes (12/20/2024 10:29 AM EDT) Pathologist [facility] HIV AB/AG Nonreactive Nonreactive [facility] Comment:HIV-1 p24 Ag and/or HIV-1/HIV-2 Ab not detected.A test result that is nonreactive does not exclude thepossibility of exposure to or infection with HIV-1 and/orHIV-2. Nonreactive results in this assay for individualswith prior exposure to HIV-1 and/or HIV-2 may be due toantigen and antibody levels that are below the limit ofdetection of this assay.The [employer] HIV Ag/Ab Combo assay result andsupplemental assay results should be interpreted inconjunction with the patient's clinical presentation,history and other laboratory results. If the results areinconsistent with clinical evidence, additional testing issuggested to confirm the result. Blood Venous blood specimen / Unknown 12/20/2024 10:29 AM EDT 12/20/2024 11:17 AM EDT us Heavenly Gardner MD LAB BLOOD ORDERAB LES Final Result Performing Organization Address [facility]/ZIP Co de Phone Number [facility] [address] [place] [phone] * Hepatitis B Surface Antibody, Qualitative (12/20/2024 10:29 AM EDT) Pathologist [facility] ~Hepatitis B Surface Antibody NONREACTIVE Nonreactive [facility] Comment:Nonreactive: < 8.00 mIU/mL Blood Venous blood specimen / Unknown 12/20/2024 10:29 AM EDT 12/20/2024 11:17 AM EDT us Heavenly Gardner MD LAB BLOOD ORDERAB LES Final Result Performing Organization Address [facility] Co de Phone Number [facility] [address] [place] [phone] * (ABNORMAL) CBC (12/20/2024 10:29 AM EDT) Pathologist [facility] White Blood Count 3.9(L) 4.8 - 10.8 X10*3/uL [facility] Red Blood Count 4.03(L) 4.60 - 5.80 X10*6/uL [facility] Hemoglobin 12.3(L) 14.0 - 18.0 g/dl [facility] Hematocrit 36.4(L) 42.0 - 52.0 % [facility] Mean Corpuscular Volume 90.3 80.0 - 98.0 fL [facility] Mean Corpuscular Hemoglobin 30.5 27.0 - 33.0 pg [facility] Mean Corpuscular HGB Conc 33.8 31.0 - 36.0 g/dl [facility] Red Cell Distribution Width 12.1 11.0 - 16.0 % [facility] Platelet Count 184 160 - 400 X10*3/uL [facility] Mean Platelet Volume 9.4 9.4 - 12.4 fL [facility] NRBC Pct Auto 0.0 0.0 - 0.2 /100WBC [facility] NRBC Abs Auto 0.000 0.0 - 0.012 X10*3/uL [facility] Blood Venous blood specimen / Unknown 12/20/2024 10:29 AM EDT 12/20/2024 11:22 AM EDT us Heavenly Gardner MD LAB BLOOD ORDERAB LES Final Result Performing Organization Address [facility] Co de Phone Number [facility] [address] [place] [address] [phone] * Hemoglobin A1c (12/20/2024 10:29 AM EDT) Hemoglobin A1c 5.9 <6.0 % [facility] Comment:Hemoglobin A1C Refer ence Range Adults: 4.8 - 6.0 % Non diabetic: < 6.0 % Goal: < 7.0 %Additional Action Suggested: > 8.0 %Note: Hemoglobin A1c results are invalid for patients with abnormal amounts of HbF. Blood transfusions may impact the HbA1c concentration in the patient sample. Estimated Average Glucose 123 mg/dL [facility] Comment:eAG = Estimated ave rage glucose which is %A1C expressed asaverage glucose, using the formula of the J0Y-FidsohrFiqqeur Glucose study (ADAG), Diabetes Care, Vol.31,#8,Oct. 2007 Blood Venous blood specimen / Unknown 12/20/2024 10:29 AM EDT 12/20/2024 11:22 AM EDT us Heavenly Gardner MD LAB BLOOD ORDERAB LES Final Result Performing Organization Address [facility]/ZIP Co de Phone Number [facility] [address] [place] [phone] * Ferritin (12/20/2024 10:29 AM EDT) Ferritin 68 20 - 250 ng/mL [facility] Blood Venous blood specimen / Unknown 12/20/2024 10:29 AM EDT 12/20/2024 11:17 AM EDT Heavenly Gardner MD LAB BLOOD ORDERAB LES Final Result [facility] [address] [place] [phone] * (ABNORMAL) POCT Hgb A1c (12/16/2024 11:29 AM EDT) Hemoglobin A1C 5.9(A) 4.0 - 5.7 % [employer] Lot # [id number] Lot# Expiration Date Blood 12/16/2024 11:2 9 AM EDT Heavenly Gardner MD POINT OF CARE EVA T ENTER/EDIT ORDERABLES Final Result * (ABNORMAL) POCT Glucose (12/16/2024 11:26 AM EDT) Glucose Blood, POC 225(A) 60 - 200 mg/dL QC Media Lot # [id number] Lot# Expiration Date [id number] Blood Capillary blood specimen / Unknown 12/16/2024 11:26 AM EDT Heavenly Gardner MD POINT OF CARE EVA T ENTER/EDIT ORDERABLES Final Result * POCT SHERRY-14 Urine Drug Screen (12/03/2024 11:43 AM EDT) THC Negative Negative Cocaine Screen, Urine Negative [...] - 12/03/2024 11:43 AM EDT .UTOX cup Lot#[id number] Exp. 12/21/25 Internal Pass Control Heavenly Gardner MD POINT OF CARE EVA T ENTER/EDIT ORDERABLES Final Result * (ABNORMAL) Albumin, Random Urine W/Creatinine (09/30/2024 3:13 PM EDT) Creatinine, Urine 95.04 mg/dL [facility] Microalbumin Urine 29.0 mg/L H [facility] Microalbum Creatinine Ratio Ur 30.5(H) <30 ug/mg cr [facility] Comment:Albumin/Creatinine R atio Reference Ranges: Normal: < 30 ug/mg creatinine Microalbuminuria: 30 - 300 ug/mg creatinineClinical Albuminuria: > 300 ug/mg creatinine Urine (Urine, Random) 09/30/2024 3:13 PM EDT 09/30/2024 4:13 PM EDT us Heavenly Gardner MD LAB URINE ORDERAB LES Final Result [facility] [address] [place] [address] [phone] * (ABNORMAL) Lipid Panel, Standard (07/29/2024 11:34 AM EDT) Triglycerides 88 <150 mg/dL [facility] Comment:Desirable Triglyceri de: less than 150 mg/dLBorderline High Triglyceride 150-199 mg/dLHigh Triglyceride: 200-499 mg/dLVery High Triglyceride: greater than or equal to 5OO mg/dL Cholesterol 135 <200 mg/dL [facility] Comment:Desirable Cholestero l: less than 200 mg/dLBorderline High Cholesterol: 200-239 mg/dLHigh Cholesterol: greater than 239 mg/dL LDL Cholesterol Calculated 87 <100 mg/dL [facility] Comment:Desirable LDL: less than 100 mg/dLNear Optimal/Above Optimal LDL: 110- 129 mg/dLBorderline High LDL: 130-159 mg/dLHigh LDL: 160-189 mg/dLVery High LDL: greater than or equal to 190 mg/dL HDL Cholesterol 31(L) >40 mg/dL [facility] Comment:Desirable HDL: great er than 40 mg/dL Note: This HDL assay may give artificially low results in patients with liver disease. Blood Venous blood specimen / Unknown 07/29/2024 11:34 AM EDT 07/29/2024 12:05 PM EDT us Glo Delgadillo MD LAB BLOOD ORDERABLES Final Re sult [facility] [address] [place] [phone] * (ABNORMAL) HP Diabetic Foot Exam (10/29/2022) us Glo Delgadillo MD HEALTH MAINTENANCE Final Resu lt from Last 3 Months or Most Recently Relevant to Health Maintenance Insurance [address] [address] STANDARD [facility] RETIREMENT OPTIONS (O D-SNP) NATACHA DIAZ [id number] Care Teams Health Management Consultant Relationship Specialty Start Date End Date Heavenly Walters MD [address] [place] [phone] PCP - General Internal Medicine 09/30/24 Blank [address] Reshma Gilliam, [facility] [place] [address] Consulting Physician Urology 03/13/23 [facility] 12/24/24
--- OUTSIDE RECORDS SUMMARY | 2025-03-04 15:36 | XMS_ITS | Encounter Summary ---
Author Organization [employer] Address [address] [facility] [address] [place] [address] Care Team Providers Care Die Drawing Checker Name Role Phone Heavenly Walters MD Primary Care Pro vider Reason for Visit * Reason Comments Med Refill Encounter Details Date Type Department Care Team ([facility] Contact Info) Description 01/07/2025 Refill [facility] [address] [place], [place] [phone] Glo Delgadillo MD [address] [place], [place] [phone] Social History Tobacco Use Types Packs/Day Years [...] Description 03/28/2025 3:00 PM EST Clinical Support [address] [address] 04/07/2025 1:15 PM EST Office Visit [address] [address] Heavenly Walters MD [address] [place] [phone] documented as of this encounter Visit Diagnoses Not on filedocumented in this encounter Additional Health Concerns Assessment Noted Time PHQ-9 Depression Total Score: 0 10/01/19 25 1:47 PM EDT documented as of this encounter Care Teams Die Drawing Checker Relationship Specialty Start Date End Date Heavenly Walters MD [address] [place] [phone] PCP - General Internal Medicine 09/30/24 Blank Gilliam, [address], [place] [address] Consulting Physician Urology 03/13/23 [facility] 12/24/24 documented as of this encounter
--- OUTSIDE RECORDS SUMMARY | 2025-03-04 15:36 | XMS_ITS | Encounter Summary ---
Author Organization [employer] Address [address] [facility] [address] [place] [address] Care Team Providers Care Manager Retention Name Role Phone Glo Delgadillo MD Primary Care Provider [phone] Heavenly Walters MD Primary Care Pro vider Encounter Details Date Type Department Care Team ([facility] st Contact Info) Description 03/24/2024 Orders Only [facility] [address] [place], [place] [phone] Doreen Anderson MD [address] [place], [place] [phone] Social History Tobacco Use Types Packs/Day Years [...] Description 03/28/2025 3:00 PM EST Clinical Support [address] [phone] 04/07/2025 1:15 PM EST Office Visit [address] [phone] Heavenly Walters MD [address] [place] [address] [phone] documented as of this encounter Procedures Procedure Name Priority Date/Time Associated Diagnosis Comments US BLADDER Routine 03/25/2024 3:01 PM EST documented in this encounter Results * US BLADDER (03/25/2024 3:01 PM EST) Anatomical Region Laterality Modality Abdomen Ultrasound 03/25/2024 3:01 PM EST Narrative 03/25/2024 4:10 PM EST [address] [address] Ultrasound Report Signed Patient: Washington Key MR#: [id number] : 1945 Acct:[id number] Age/Sex: 79 / M ADM Date: 03/25/24 Loc: HO.US Attending Dr: Doreen Anderson MD Ordering Physician: Doreen Anderson MD Date of Service: 03/25/24 Procedure(s): US bladder Accession Number(s): [id number] cc: Doreen Anderson MD; Glo Delgadillo MD [...] by: Adriano Lee MD 03/25/2024 04:08 PM [facility] Dictated By: Adriano Lee MD Signed By: <Electronically signed by Adriano Lee MD in OV> 03/25/24 1608 DD/ 1501 TD/TT: 03/25/24 1511 Seasoner: Procedure Note Donotuseinterpreter, Image - 03/25/[address] [address] Ultrasound Report Signed Patient: Washington Key AMR#: [id number] : 1945cct:[id number] Age/Sex: 79 / MADM Date: 03/25/24 Loc: .US Attending Dr: Doreen Anderson MD Ordering Physician: Doreen Anderson MD Date of Service: 03/25/24 Procedure(s): bladder Accession Number(s): [id number] cc: Doreen Anderson MD; Glo Delgadillo MD [...] 03/25/24 1608 DD/ 1501 TD/TT: 03/25/24 1511 Seasoner: us Doreen Anderson MD IMG US PROCEDURES Final Resul t documented in this encounter Visit Diagnoses Not on filedocumented in this encounter Additional Health Concerns Assessment Noted Time PHQ-9 Depression Total Score: 3 05/15/19 24 3:05 PM EST documented as of this encounter Care Teams Manager Retention Relationship Specialty Start Date End Date Glo Delgadillo MD [address] [place] [address] PCP - General Family Medicine 12/18/20 09/29/24 Heavenly Walters MD [address] [place] [address] PCP - General Internal Medicine 09/30/24 Blank [address] Reshma Gilliam, [facility] [address], [place] [address] Consulting Physician Urology 03/13/23 [facility] 12/24/24 documented as of this encounter
== END 2025-03-04 13:56 | disposition home or self-care (01) ==
LOC: HO.HHCX 13:55
PROVIDERS: PCP Internal Medicine Geriatric Medicine; Visit Provider Internal Medicine Geriatric Medicine
DX: M79.645 Pain in left finger(s) (principal); M79.89 Other specified soft tissue disorders
CPT/HCPCS: 73130

== ENCOUNTER → 2025-03-04 13:58 | Outpatient (BNV) | payer OTHER, SELFPAY | PROVIDERS: PCP Internal Medicine Geriatric Medicine; Visit Provider Radiology Diagnostic Radiology | DX: M79.642 Pain in left hand (principal) | CPT/HCPCS: 73130 ==